=== PATIENT | female | born 1965 | race Caucasian/White ===

== ENCOUNTER 2016-06-02 20:36 | Inpatient (IN) | payer OTHER ==
[~2016-06-02] VITALS: Ht 149.9 cm; Wt 56.7 kg
[~2016-06-02 20:36] MED LIST: DILAUDID2 M1 PO; DURAGESIC1 EAC2 TOP; DURAGESIC1 EACH TOP; FERROUS SULFAT325 M2 PO; FOLIC ACID1 M1 PO; ONE DAILY MULT1 EAC2 PO; OXYCODONE HCL10 M2 PO; PERCOCET 5-3251 EACH PO; PROAIR HFA8.5 GM INH; VITAMIN B-1100 MG PO
--- NOTE | 2016-06-02 21:28 | ED UPPER/LOWER EXTREMITY COMPL ---
History of Present Illness General Chief Complaint: Upper Extremity Problem Stated Complaint: L ARM SWOLLEN X FEW HRS, RECENT CANCER DIAGNOSIS Source: patient Exam Limitations: no limitations Vital Signs & Intake/Output Vital Signs & Intake/Output Vital Signs Date Time Temp Pulse Resp B/P Pulse O2 O2 Flow FiO2 Ox Delivery Rate 06/03 1434 98.5 106 20 122/74 94 06/03 0800 Room Air 06/03 0609 98.3 113 20 120/78 96 06/03 0114 98.2 111 20 152/88 95 06/03 0042 98.7 67 16 126/76 99 Room Air 06/02 2252 98.9 105 16 120/69 95 Room Air 06/02 2114 Room Air 06/02 2057 97.4 113 18 151/92 97 Room Air ED Intake and Output 06/03 0000 06/02 1200 Intake Total Output Total Balance Patient 125 lb Weight Allergies Coded Allergies: NO KNOWN ALLERGIES (06/07/11) Reconcile Medications Albuterol Sulfate (Proair Hfa) 90 MCG HFA.AER.AD 2 PUF INH Q4-6 PRN PRN ASTHMA (Reported) Fentanyl (Duragesic) 25 MCG/HOUR PATCH.TD72 1 PAT TOP Q3D cancer pain Fentanyl Citrate (Duragesic) 50 MCG/HOUR PATCH.TD72 1 PAT TOP Q3D pain Ferrous Sulfate 325 MG (65 MG IRON) TABLET.DR 1 MG PO TID anemia Folic Acid 1 MG TABLET 1 MG PO DAILY anemia Hydromorphone HCl (Dilaudid) 2 MG TABLET 1 TAB PO Q6P PRN PAIN Multivitamin (One Daily Multivitamin) 1 EACH TABLET 1 TAB PO DAILY anemia Oxycodone HCl 10 MG TABLET 1 TAB PO 4XDP PRN breakthrough pain Thiamine HCl (Vitamin B-1) 100 MG TABLET 1 MG PO DAILY anemia Triage Note: TRIAGE: PATIENT TO ER FROM HOME REPORTS "TAKING NEW PAIN MEDICATION AND SINCE HAVING SWELLING TO L HAND AND ARM, NOT SURFE IF IT'S A REACTION OR WHAT." DENIES ITCHING/ RASH. REPORTS RECENT DX CANCER. DENIES SOB/ TONGUE SWELLING. O2 WNL, REGULAR RESPIRATIONS. Triage Nurses Notes Reviewed? yes Onset: Abrupt Duration: day(s): (2) Timing: recent history Severity: moderate Pain/Injury Location: Left: Arm. Method of Injury: none No Modifying Factors: none Associated Symptoms: swelling, stiffness HPI: This is a 50-year-old female who presents to the ER for chief complaint of upper extremity swelling after taking an new medication. She only noticed the swelling yesterday. Denies any pain. SHe thinks it could be the result of starting a fentanyl patch recently. She was admitted to the [facility] 3 weeks ago after being diagnosed with metastatic esophageal cancer. Denies chest pain or shortness of breath. Denies trauma to the extremity. No weaknss, numbness or tingling. Past History Travel History Traveled to [place] past 21 day No Medical History Any Pertinent Medical History? 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 No Review of Systems Review of Systems Constitutional: Denies: see HPI, fever. EENTM: Reports: no symptoms. Respiratory: Denies: cough, short of breath, sputum production. Cardiovascular: Reports: peripheral edema. Denies: chest pain, palpitations. Gastrointestinal/Abdominal: Denies: abdominal pain. Genitourinary: Denies: discharge, dysuria. Musculoskeletal: Reports: no symptoms. Skin: Reports: no symptoms. Neurological/Psychological: Denies: confusion, depressed. Hematologic/Endocrine: Denies: bruising, bleeding, polyuria, polydipsia. Immunological: Denies: splenectomy. All Other Systems: Reviewed and Negative Physical Exam Physical Exam General Appearance: well developed/nourished, alert, awake, mild distress Head: atraumatic Eyes: Bilateral: PERRL, EOMI. Ears, Nose, Throat: normal pharynx, normal ENT inspection, hearing grossly normal Neck: normal inspection, supple Cardiovascular/Respiratory: regular rate/rhythm Peripheral Pulses: 2+ radial (R), 2+ radial (L) Gastrointestinal: SOFT NONTENDER Back: normal inspection Shoulder Left: normal range of motion, normal inspection, swelling Shoulder Right: normal range of motion, normal inspection Elbow Left: normal range of motion, normal inspection, swelling Elbow Right: normal range of motion, normal inspection Hand Left: normal inspection, normal range of motion, swelling Hand Right: normal inspection, normal range of motion Neurologic/Tendon: normal sensation, normal motor functions, normal tendon functions Skin: intact, normal color, warm/dry Lymphatic: no anterior cervical can Progress Differential Diagnosis: cellulitis, DVT, SUPERFICIAL THROMBOPHELEBITIS Plan of Care: Orders Procedure Date/time Status XRY-FLUOROSCOPY,INDEPEND PROC 06/04 UNK Active Nothing by Mouth 06/03 D Active Full Liquid Diet 06/03 B Complete PARTIAL THROMBOPLASTIN TIME 06/03 1910 Active PROTHROMBIN TIME 06/03 1526 Active Heparin Drip- AFIB/FLUTTER/PE/ 06/03 1323 Active Change service to 06/03 1146 Active PARTIAL THROMBOPLASTIN TIME 06/03 1130 Complete PARTIAL THROMBOPLASTIN TIME 06/03 0430 Complete Vital Signs 06/03 0131 Complete Teach/Educate 06/03 0131 Active Nutritional Intake, Monitor 06/03 013 Active Isolation 06/03 0131 Active Intake & Output 06/03 0131 Complete Patient Care Conference 06/03 0131 Active Activity/Ambulation 06/03 0131 Active Vital Signs 06/03 0114 Active Lab Add-on Test 06/03 UN Active ECHOCARDIOGRAM 06/03 UN Active Pathway - chart 06/02 2353 Active House Staff 06/02 2353 Active Patient Data 06/02 2353 Active Code Status 06/02 2353 Active Patient Data 06/02 2350 Active Admit to inpatient 06/02 2308 Active Code Status 06/02 2308 Complete LIPASE 06/02 2200 Complete C-REACTIVE PROTEIN 06/02 2200 Complete AMYLASE 06/02 220 Complete Telemetry/Grout Machine Tender 06/02 215 Complete TROPONIN LEVEL 06/02 215 Complete PARTIAL THROMBOPLASTIN TIME 06/02 215 Complete PROTHROMBIN TIME 06/02 215 Complete COMPREHENSIVE METABOLIC PANEL 06/02 2150 Complete CBC WITHOUT DIFFERENTIAL 06/02 2150 Complete EKG 06/02 2150 Active Intake & Output 06/02 2057 Active VTE Mechanical Prophylaxis 06/02 UNK Active Current Medications Sig/Beata Start time Last Medication Dose Stop Time Status Admin Fentanyl Citrate 50 MCG Q3D 06/06 1200 AC (Duragesic) Acetaminophen 325 MG Q6P PRN 06/03 0215 AC (Tylenol) Laboratory Tests 06/03/16 1517: PT Cancelled, INR Cancelled 06/03/16 1128: APTT 52 H 06/03/16 0420: APTT 47 H 06/02/16 2200: Anion Gap 13, Estimated GFR > 60, BUN/Creatinine Ratio 22.0, Glucose 123 H, Calcium 9.6, Total Bilirubin 1.3, AST 30, ALT 20, Alkaline Phosphatase 135 H, Troponin I < 0.01, C-Reactive Prot, Quant > 9.0 H, Total Protein 7.8, Albumin 3.5, Globulin 4.3 H, Albumin/Globulin Ratio 0.8 L, Amylase 112 H, Lipase 1912 H, PT 15.2 H, INR 1.45 H, APTT 26, CBC w Diff NO MAN DIFF REQ, RBC 4.31, MCV 75.8 L, MCH 24.2 L, RDW 17.5 H, MPV 7.1 L, Gran % 85.1 H, Lymphocytes % 6.9 L, Monocytes % 4.7, Eosinophils % 3.2, Basophils % 0.1, Absolute Granulocytes 11.2 H, Absolute Lymphocytes 0.9 L, Absolute Monocytes 0.6, Absolute Eosinophils 0.4, Absolute Basophils 0, PUBS MCHC 31.9 L U/S ORDERED FROM TRIAGE POSITIVE FOR LEFT IJ/BRACHEOCEPHALIC DVT. LABS, CT CHEST ANGIOGRAM ORDERED. HEPARIN BOLUS AND DRIP ORDERED. PATIENT ADMITTED TO HOSPITALIST SERVICE FOR ANTICOAGULATION. CT CHEST ANGIOGRAM NEGATIVE FOR PE. (ROGERIO SERRANO,[place]) Diagnostic Imaging: Viewed by Me: CT Scan, Ultrasound. Discussed w/RAD: CT Scan, Ultrasound. Initial ED EKG: SINUS TACHYCARDIA @106 BPM Prior EKG: unchanged Comments: PATIENT: ANDRAE BUTCHER PRESENT AGE: 50 PATIENT ACCOUNT NO: [id number] : 66 LOCATION: ER ORDERING PHYSICIAN: LAWRENCE BEATTY MD SERVICE DATE: 06/02/16 EXAM TYPE: CAT - CTA CHEST EXAMINATION: CT ANGIOGRAM CHEST CLINICAL INFORMATION: Left upper extremity DVT. Chest pain and shortness of breath. Poorly differentiated adenocarcinoma of the esophagus. COMPARISON: CT chest with contrast 05/10/2016. TECHNIQUE: Multiple axial images were obtained through the chest after the administration of 95 mL of Optiray 320 intravenous contrast. Images were reviewed on a dedicated 3-D workstation. DLP: 287 mGy-cm. FINDINGS: QUALITY OF STUDY/CONTRAST BOLUS: Adequate contrast opacification of the pulmonary arterial vasculature. PULMONARY ARTERIES: No evidence of pulmonary embolism to the level of the subsegmental pulmonary arteries. No large central pulmonary emboli. Normal caliber of the main pulmonary artery. THORACIC AORTA: Normal caliber of the thoracic aorta. No centrally displaced intraluminal flaps to suggest aortic dissection. Normal three-vessel branching of the aortic arch. LUNG: Interval development of minimal dependent atelectasis within the left lower lobe secondary to interval development of a small left-sided pleural effusion. Diffuse respiratory motion abnormality slightly limits evaluation of the lung parenchyma. No suspicious pulmonary nodules or masses are identified within the aerated portions of the bilateral lungs. PLEURA: As noted above, there has been interval development of a small left-sided pleural effusion with overlying left basilar compressive atelectasis. MEDIASTINUM: Normal heart size, without significant pericardial effusion. Normal three-vessel branching of the aortic arch. Redemonstrated are multiple enhancing soft tissue masses within the superior mediastinum as well as within the mediastinum, corresponding to the patient's known fartun metastases from primary esophageal cancer. Confluent adenopathy within the right paratracheal region as well as within the right lateral aspect of the superior mediastinum does not appear significantly changed relative to the prior examination. Additionally, previously identified adenopathy within the right hilar region as well as within the subcarinal region does not appear significantly changed when accounting for differences in technique. CHEST WALL/AXILLA: In comparison to the prior examination, there has been interval development of prominent left axillary lymph nodes, suspicious for fartun metastases. For instance, there is a prominent left axillary/left subpectoral lymph node measuring 1.3 x 1.6 cm (series 4, image 7). A new right subpectoral lymph node is visualized measuring 0.8 cm (series 4, image 9). There are mildly prominent right axillary lymph nodes, new relative to the prior examination and suspicious for fartun metastases. Previously identified subcutaneous metastases along the left paramedian abdominal wall at the right abdominal wall as well as within the lower inner quadrant of the left breast appear increased in size relative to the prior examination. For instance, a cutaneous metastasis along the right lateral abdominal wall which previously measured 1.0 x 1.1 cm now measures 1.7 x 1.8 cm. Additional cutaneous metastases along the left abdominal wall have increased in size relative to the prior exam. OSSEOUS STRUCTURES: No acute osseous abnormality. Normal alignment of the imaged thoracic spine. Mild multilevel degenerative changes of the thoracic spine without visible acute vertebral compression deformity. No visible destructive osseous lesions. UPPER ABDOMEN: Stable right adrenal gland mass. Interval development of a left adrenal gland mass which is suspicious for a left adrenal gland metastasis. A previously identified peritoneal metastasis within the left upper quadrant of the abdomen has significantly increased in size relative to the prior examination and is now visualized measuring 2.4 x 2.4 cm (series 4, image 50); previously, 1.4 x 1.4 cm. No reflux of contrast into the hepatic veins to suggest elevated right heart pressures. IMPRESSION: 1. Adequate contrast opacification of the pulmonary arterial vasculature, without evidence of pulmonary embolism. 2. Prominent enhancing mediastinal adenopathy as well as confluent adenopathy within the subcarinal region as well as within the right hilar region, corresponding to the patient's known fartun metastases from metastatic esophageal carcinoma. Previously identified cutaneous metastases along the left anterior chest wall as well as along the left paramedian abdominal wall, at the right lateral abdominal wall and within the lower inner quadrant of the left breast increased in size relative to the prior examination. Additionally, there has been significant interval increase in size of a previously identified peritoneal metastasis within the left upper quadrant of the abdomen which is now visualized measuring 2.4 x 2.4 cm; previously, 1.4 x 1.4 cm. This constellation of findings is suggestive of interval progression of metastatic disease within the chest and abdomen. 3. Interval development of the left adrenal gland mass, suspicious for left adrenal gland metastasis. 4. Interval development of prominent bilateral axillary and subpectoral lymph nodes, suspicious for fartun metastases. 5. Interval development of a small left-sided pleural effusion with overlying left basilar compressive atelectasis. DICTATED BY: RICAROD NGUYỄN MD DATE/TIME DICTATED:06/02/162234 TRUST EVALUATION SUPERVISOR:ALYSHA DATE/TIME TRANSCRIBED:06/02/162234 CONFIDENTIAL, DO NOT COPY WITHOUT APPROPRIATE AUTHORIZATION. <Electronically signed in Other Vendor System> SIGNED BY: RICARDO NGUYỄN MD 06/02/16 1860 PATIENT: ANDRAE BUTCHER PRESENT AGE: 50 PATIENT ACCOUNT NO: [id number] : 67 LOCATION: [facility] ORDERING PHYSICIAN: CALEB THOMAS SERVICE DATE: 06/02/16 EXAM TYPE: US - US-UNILATERAL VENOUS DOPPLER EXAMINATION: US TRIPLEX UPPER EXTREMITY, LEFT CLINICAL INFORMATION: Left upper extremity swelling. Evaluate for deep venous thrombosis. COMPARISON: CT neck with contrast 05/10/2016. TECHNIQUE: Color-flow triplex imaging with spectral analysis and compression Doppler were performed on the left upper extremity. FINDINGS: Multiple grayscale, color Doppler and spectral Doppler images of the left upper extremity veins demonstrate nonocclusive thrombus within the upper left internal jugular vein, extending to the proximal segment of the internal jugular vein at the level of the brachiocephalic confluence. The remaining veins of the left upper extremity are patent. There is no evidence of deep venous thrombosis within the left subclavian, axillary, brachial, basilic, cephalic, radial or ulnar veins. IMPRESSION: Deep venous thrombosis of the left upper extremity with nonocclusive thrombus identified within the upper regions of the left internal jugular vein, with contiguous extension into the proximal segment of the left internal jugular vein, at the level of the brachiocephalic confluence. This critical result was discussed with Dr. Caleb Edwards at 9:52 PM on 05/25/2016 and it was ascertained that the content and urgency of the report was understood at the time of direct communication. DICTATED BY: RICARDO NGUYỄN MD DATE/TIME DICTATED:06/02/162143 TRUST EVALUATION SUPERVISOR:ALYSHA DATE/TIME TRANSCRIBED:06/02/162143 CONFIDENTIAL, DO NOT COPY WITHOUT APPROPRIATE AUTHORIZATION. <Electronically signed in Other Vendor System> SIGNED BY: RICARDO NGUYỄN MD 06/02/162156 Departure Departure Time of Disposition: 2314 Disposition: STILL A PATIENT Condition: Stable Clinical Impression Primary Impression: Internal jugular (IJ) vein thromboembolism, acute Secondary Impressions: Metastatic cancer Referrals: KRISTIAN LAKE MD (PCP/Family) Referred to [facility] as new patient No Departure Forms: Customer Survey General Discharge Information Admission Note Spoke With: AUDI DENTON MD Documentation of Exam: Documentation of any treatments & extenuating circumstances including Concerns Regarding Discharge (functional status, medication knowledge or non-compliance, living conditions, etc.) that warrant an admission rather than observation: [IV HEPARIN, MONITOR COAGS, VASCULAR CONSULT, ONCOLOGY CONSULTATION (PATIENT BEING WORKED UP BY DR OTTO WITH CURRENT EVIDENCE OF METASTATIC CANCER)]
--- NOTE | 2016-06-02 21:57 | ULTRASOUND REPORT ---
EXAMINATION: US TRIPLEX UPPER EXTREMITY, LEFT CLINICAL INFORMATION: Left upper extremity swelling. Evaluate for deep venous thrombosis. COMPARISON: CT neck with contrast 05/10/2016. TECHNIQUE: Color-flow triplex imaging with spectral analysis and compression Doppler were performed on the left upper extremity. FINDINGS: Multiple grayscale, color Doppler and spectral Doppler images of the left upper extremity veins demonstrate nonocclusive thrombus within the upper left internal jugular vein, extending to the proximal segment of the internal jugular vein at the level of the brachiocephalic confluence. The remaining veins of the left upper extremity are patent. There is no evidence of deep venous thrombosis within the left subclavian, axillary, brachial, basilic, cephalic, radial or ulnar veins. IMPRESSION: Deep venous thrombosis of the left upper extremity with nonocclusive thrombus identified within the upper regions of the left internal jugular vein, with contiguous extension into the proximal segment of the left internal jugular vein, at the level of the brachiocephalic confluence. This critical result was discussed with Dr. Khanh Edwards at 9:52 PM on 05/25/2016 and it was ascertained that the content and urgency of the report was understood at the time of direct communication.
[2016-06-02 22:08] LABS: ABSOLUTE BASOPHIL COUNT 0 /CUMM (0.0-0.2); ABSOLUTE EOSINOPHIL COUNT 0.4 /CUMM (0.0-0.7); ABSOLUTE GRANULOCYTE CT 11.2 /CUMM (1.4-6.5); ABSOLUTE LYMPH COUNT 0.9 /CUMM (1.2-3.4); ABSOLUTE MONOCYTE COUNT 0.6 /CUMM (0.10-0.60); BASOPHIL % 0.1 % (0.0-2.0); EOSINOPHIL % 3.2 % (0-5); HEMATOCRIT 32.7 % (37-47); MEAN CORPUSCULAR HGB 24.2 PG (27.0-31.0); MEAN CORPUSCULAR HGB CONC 31.9 G/DL (33.0-37.0); MEAN CORPUSCULAR VOLUME 75.8 FL (81.0-99.0); MEAN PLATELET VOLUME 7.1 FL (7.4-10.4); PLATELET COUNT 402 /CUMM (130-400); RBC DISTRIBUTION WIDTH 17.5 % (11.5-14.5); RED BLOOD CELL CT 4.31 /CUMM (4.20-5.40); WHITE BLOOD CELL COUNT 13.2 /CUMM (4.8-10.8)
[2016-06-02 22:18] LABS: PT 15.2 SEC (9.4-12.5); PTT 26 SEC (25-37)
[2016-06-02 22:27] LABS: GRANULOCYTE % 85.1 % (42.2-75.2)
--- NOTE | 2016-06-02 23:01 | CT SCAN REPORT ---
EXAMINATION: CT ANGIOGRAM CHEST CLINICAL INFORMATION: Left upper extremity DVT. Chest pain and shortness of breath. Poorly differentiated adenocarcinoma of the esophagus. COMPARISON: CT chest with contrast 05/10/2016. TECHNIQUE: Multiple axial images were obtained through the chest after the administration of 95 mL of Optiray 320 intravenous contrast. Images were reviewed on a dedicated 3-D workstation. DLP: 287 mGy-cm. FINDINGS: QUALITY OF STUDY/CONTRAST BOLUS: Adequate contrast opacification of the pulmonary arterial vasculature. PULMONARY ARTERIES: No evidence of pulmonary embolism to the level of the subsegmental pulmonary arteries. No large central pulmonary emboli. Normal caliber of the main pulmonary artery. THORACIC AORTA: Normal caliber of the thoracic aorta. No centrally displaced intraluminal flaps to suggest aortic dissection. Normal three-vessel branching of the aortic arch. LUNG: Interval development of minimal dependent atelectasis within the left lower lobe secondary to interval development of a small left-sided pleural effusion. Diffuse respiratory motion abnormality slightly limits evaluation of the lung parenchyma. No suspicious pulmonary nodules or masses are identified within the aerated portions of the bilateral lungs. PLEURA: As noted above, there has been interval development of a small left-sided pleural effusion with overlying left basilar compressive atelectasis. MEDIASTINUM: Normal heart size, without significant pericardial effusion. Normal three-vessel branching of the aortic arch. Redemonstrated are multiple enhancing soft tissue masses within the superior mediastinum as well as within the mediastinum, corresponding to the patient's known fartun metastases from primary esophageal cancer. Confluent adenopathy within the right paratracheal region as well as within the right lateral aspect of the superior mediastinum does not appear significantly changed relative to the prior examination. Additionally, previously identified adenopathy within the right hilar region as well as within the subcarinal region does not appear significantly changed when accounting for differences in technique. CHEST WALL/AXILLA: In comparison to the prior examination, there has been interval development of prominent left axillary lymph nodes, suspicious for fartun metastases. For instance, there is a prominent left axillary/left subpectoral lymph node measuring 1.3 x 1.6 cm (series 4, image 7). A new right subpectoral lymph node is visualized measuring 0.8 cm (series 4, image 9). There are mildly prominent right axillary lymph nodes, new relative to the prior examination and suspicious for fartun metastases. Previously identified subcutaneous metastases along the left paramedian abdominal wall at the right abdominal wall as well as within the lower inner quadrant of the left breast appear increased in size relative to the prior examination. For instance, a cutaneous metastasis along the right lateral abdominal wall which previously measured 1.0 x 1.1 cm now measures 1.7 x 1.8 cm. Additional cutaneous metastases along the left abdominal wall have increased in size relative to the prior exam. OSSEOUS STRUCTURES: No acute osseous abnormality. Normal alignment of the imaged thoracic spine. Mild multilevel degenerative changes of the thoracic spine without visible acute vertebral compression deformity. No visible destructive osseous lesions. UPPER ABDOMEN: Stable right adrenal gland mass. Interval development of a left adrenal gland mass which is suspicious for a left adrenal gland metastasis. A previously identified peritoneal metastasis within the left upper quadrant of the abdomen has significantly increased in size relative to the prior examination and is now visualized measuring 2.4 x 2.4 cm (series 4, image 50); previously, 1.4 x 1.4 cm. No reflux of contrast into the hepatic veins to suggest elevated right heart pressures. IMPRESSION: 1. Adequate contrast opacification of the pulmonary arterial vasculature, without evidence of pulmonary embolism. 2. Prominent enhancing mediastinal adenopathy as well as confluent adenopathy within the subcarinal region as well as within the right hilar region, corresponding to the patient's known fartun metastases from metastatic esophageal carcinoma. Previously identified cutaneous metastases along the left anterior chest wall as well as along the left paramedian abdominal wall, at the right lateral abdominal wall and within the lower inner quadrant of the left breast increased in size relative to the prior examination. Additionally, there has been significant interval increase in size of a previously identified peritoneal metastasis within the left upper quadrant of the abdomen which is now visualized measuring 2.4 x 2.4 cm; previously, 1.4 x 1.4 cm. This constellation of findings is suggestive of interval progression of metastatic disease within the chest and abdomen. 3. Interval development of the left adrenal gland mass, suspicious for left adrenal gland metastasis. 4. Interval development of prominent bilateral axillary and subpectoral lymph nodes, suspicious for fartun metastases. 5. Interval development of a small left-sided pleural effusion with overlying left basilar compressive atelectasis.
--- NOTE | 2016-06-03 00:15 | History & Physical ---
YING SERRANO,[facility] 06/03/16 0015: General Information and HPI MD Statement: I have seen and personally examined ANDRAE BUTCHER and documented this H&P. The patient is a 50 year old F who presented with a patient stated chief complaint of []. Source of Information: patient, old records Exam Limitations: no limitations History of Present Illness: 50/F with PMH of asthma, DM, esophageal cancer diagnosed earlier this month, presented to the ED complaining of left arm swelling that started for the first time ever earlier today. Today morning patient started complaining of left arm swelling that extends up to the neck. She also reported 6/10, nonradiating, crampy, left arm pain. Patient was recently discharged after was treated for pancreatitis. She still reports mild abdominal pain and decreased oral intake. Patient denies nausea, vomiting, fever, chills, diarrhea or constipation. She also denies chest pain, shortness breath, or palpitation. Patient was admitted to [facility] earlier this month for the treatment of pancreatitis, as a part of the workup, abdominal CT was done which demonstrate multiple mass that's most likely represents a metastasized cancer. That was followed by CT of neck and chest which showed mediastinal mass with esophageal thickening. A biopsy was done and confirmed the diagnosis of esophageal cancer. Patient is following Dr. Garcia (oncologist), patient is not on any chemotherapy or radiotherapy. Allergies/Medications Allergies: Coded Allergies: NO KNOWN ALLERGIES (06/07/11) Home Med list Albuterol Sulfate (Proair Hfa) 90 MCG HFA.AER.AD 2 PUF INH Q4-6 PRN PRN ASTHMA (Reported) Fentanyl (Duragesic) 25 MCG/HOUR PATCH.TD72 1 PAT TOP Q3D cancer pain Fentanyl Citrate (Duragesic) 50 MCG/HOUR PATCH.TD72 1 PAT TOP Q3D pain Ferrous Sulfate 325 MG (65 MG IRON) TABLET.DR 1 MG PO TID anemia Folic Acid 1 MG TABLET 1 MG PO DAILY anemia Hydromorphone HCl (Dilaudid) 2 MG TABLET 1 TAB PO Q6P PRN PAIN Multivitamin (One Daily Multivitamin) 1 EACH TABLET 1 TAB PO DAILY anemia Oxycodone HCl 10 MG TABLET 1 TAB PO 4XDP PRN breakthrough pain Thiamine HCl (Vitamin B-1) 100 MG TABLET 1 MG PO DAILY anemia Past History Travel History Traveled to [place] past 21 day No Medical History Neurological: NONE EENT: NONE Cardiovascular: NONE Respiratory: asthma Gastrointestinal: pancreatitis Hepatic: NONE Renal: BLADDER INFECTIONS Musculoskeletal: NONE Psychiatric: NONE Endocrine: NONE Blood Disorders: NONE Cancer(s): POORLY DIFFERENTIATED ADENOCARCINOMA OF THE DISTAL ESOPHAGUS 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 Denies: chills, fever, weakness. Exam & Diagnostic Data Last 24 Hrs of Vital Signs/I&O Vital Signs Date Time Temp Pulse Resp B/P Pulse O2 O2 Flow FiO2 Ox Delivery Rate 06/03 0114 98.2 111 20 152/88 95 06/03 0042 98.7 67 16 126/76 99 Room Air 06/02 2252 98.9 105 16 120/69 95 Room Air 06/02 2114 Room Air 06/027 97.4 113 18 151/92 97 Room Air Intake & Output 06/03 0800 06/03 0000 06/02 1600 Intake Total Output Total Balance Patient 56.699 kg 56.699 kg Weight Physical Exam General Appearance Alert, Oriented X3, Cooperative, Mild Distress Skin No Rashes HEENT Atraumatic, PERRLA, EOMI, Mucous Membr. moist/pink Neck No JVD, posterio-lateral mass on the base of the neck. Cardiovascular Regular Rate, Normal S1, Normal S2, No Murmurs Lungs Clear to Auscultation, Normal Air Movement Abdomen Soft, No Tenderness Neurological Normal Speech Extremities no edema, swelling or tenderness over LE B/L, +1 Left UE edema, with no tenderness. right UE exam Vascular Normal Pulses Last 24 Hrs of Labs/Al: Laboratory Tests 06/02/ 2200: Anion Gap 13, Estimated GFR > 60, BUN/Creatinine Ratio 22.0, Glucose 123 H, Calcium 9.6, Total Bilirubin 1.3, AST 30, ALT 20, Alkaline Phosphatase 135 H, Troponin I < 0.01, C-Reactive Prot, Quant > 9.0 H, Total Protein 7.8, Albumin 3.5, Globulin 4.3 H, Albumin/Globulin Ratio 0.8 L, Amylase 112 H, Lipase 1912 H, PT 15.2 H, INR 1.45 H, APTT 26, CBC w Diff NO MAN DIFF REQ, RBC 4.31, MCV 75.8 L, MCH 24.2 L, RDW 17.5 H, MPV 7.1 L, Gran % 85.1 H, Lymphocytes % 6.9 L, Monocytes % 4.7, Eosinophils % 3.2, Basophils % 0.1, Absolute Granulocytes 11.2 H, Absolute Lymphocytes 0.9 L, Absolute Monocytes 0.6, Absolute Eosinophils 0.4, Absolute Basophils 0, PUBS MCHC 31.9 L Assessment/Plan Assessment: Assessment and plan #Left upper extremity DVT. Patient has a hypercoagulable state most likely secondary to esophageal cancer with advance patient metastasis. Diagnosis was confirmed with upper extremity Doppler. * Patient already started on heparin drip * We will give IV Dilaudid 1 mg every 4 when necessary * We will consult oncology at a.m. #Acute pancreatitis Patient was recently discharged after she was treated for pancreatitis, she still complaining of epigastric pain that radiates to the back. Lipase was higher than last discharge(1911). * Patient will be started on IV fluids * Patient will be on full liquid and will be advanced as tolerated * Patient is on IV Dilaudid 1 mg every 4 when necessary * Zofran when necessary for nausea #Microcystic anemia Iron study was done during the last admission, it indicates iron deficiency anemia. Today MCV is 75.8 * We will repeat CBC before discharge * Patient may benefit from starting on, this can be addressed by the morning team #Diet * Full liquid #Fluid * Ringer lactate #DVT prophylaxis * She is on IV heparin drip #CODE STATUS * Full code As Ranked By This Provider Problem List: 1. Esophageal cancer Core Measures/Miscellaneous Acute Coronary Syndrome ACS Diagnosis: No Cerebrovascular Accident CVA/TIA Diagnosis: No Congestive Heart Failure CHF Diagnosis: No Venous Thromboembolism VTE Risk Factors: Acute medical illness, Age > 40, Cancer/chemo/oth therapy VTE Prophylaxis Ordered Inpt: Mech & Pharm No Mech VTE prophylaxis d/t: No contraindications No VTE Pharm Prophylaxis d/t: No contraindications VTE Diagnosis: Yes VTE Type: Deep Venous Thrombosis VTE Confirmed by (Test): DUPLEX VENOUS EXTREM UNI Severe Sepsis Severe Sepsis Present: No Septic Shock Septic Shock Present: No Miscellaneous Documentation Attending Case Discussed With: AUDI DENTON MD Primary Care Physician: KRISTIAN LAKE MD Patient sees these Specialists KRISTIAN LAKE MD Level of Patient Care: General Surgical KEILA HERNÁNDEZ 06/03/16 0124: Resident Review Statement Resident Statement: examined this patient, discussed with cisco certified internetwork expert Other Findings: Patient is a 50-year-old female with past medical history of diabetes, asthma, recent diagnosis of esophageal cancer( May 2016) with extensive metastasis presented to the ED today with a chief complaint of swelling of the left upper extremity since the morning. Patient was recently discharged from [facility] on 05/13/2016 after being treated for pancreatitis.CT scan of the abdomen and pelvis which demonstrated numerous abnormalities including subcutaneous nodules, abdominal lymphoadenopathy, and pancreatitis. CT neck and chest showed mediastinal and right hilar adenopathy and diffuse thickening of the esophagus. She underwent biopsy of the right neck supple on 05/11 and underwent EGD on 05/12. EGD showed an exophytic tumor, biopsies revealed HER-2 positive adenocarcinoma of the esophagus. She has extensive metastasis to the abdominal wall, left breast, lymph nodes, bones, and adrenal gland. She is following up with Dr. Garcia as an outpatient and has not been started on chemotherapy. This morning she noted an increasing swelling of her left upper extremity extending from hand to the neck. She complains of moderate pain 6 /10 on intensity in her arm. She also complains of poor by mouth intake over the past few days due to pain in her abdomen on taking any food or drink.Pain is radiating to the back. She has not been drinking for the past 20 days. Denies any chest pain, shortness of breath, nausea, vomiting, urinary or bowel symptoms. Complains of intermittent headaches. Patient has been very depressed since the diagnosis of cancer. She lost her job due to absence from work secondary to her health issues. Vitals temperature 97.4, pulse 113, respiration 18, blood pressure 151/92, saturating 97% on room air Labs showed a white count of 13.2, H&H of 10.4/32.7, MCV 75.8, platelet count 402, sodium 132, potassium 3.6, glucose 123, troponin negative, alkaline phosphatase 135, lipase 1912, INR 1.45. Dopplers: DVT in the upper left extremity with nonocclusive thrombus in the upper region of the internal jugular vein with contiguous extension to the proximal segment of the left internal jugular vein at the level of brachiocephalic confluence. CTA: rominent enhancing mediastinal adenopathy as well as confluent adenopathy within the subcarinal region as well as within the right hilar region, corresponding to the patient's known fartun metastases from metastatic esophageal carcinoma. Previously identified cutaneous metastases along the left anterior chest wall as well as along the left paramedian abdominal wall, at the right lateral abdominal wall and within the lower inner quadrant of the left breast increased in size relative to the prior examination. Additionally, there has been significant interval increase in size of a previously identified peritoneal metastasis within the left upper quadrant of the abdomen which is now visualized measuring 2.4 x 2.4 cm; previously, 1.4 x 1.4 cm. This constellation of findings is suggestive of interval progression of metastatic disease within the chest and abdomen. Interval development of the left adrenal gland mass, suspicious for left adrenal gland metastasis.Interval development of a small left-sided pleural effusion with overlying left basilar compressive atelectasis. Physical exam: Gen.: Awake, alert and oriented 3, mild distress, anxious HEENT: PERRLA, EOMI. Soft subcutaneous mass seen on the right side of the neck about 2X2 cm. A small knotty mass is felt on the left side of the neck. Respiratory: normal breath sounds, chest non-tender, no respiratory distress, quiet respiration Cardiovascular: Regular rate and rhythem. Gastrointestinal: normal bowel sounds, soft, mild tenderness in the epigastric area. Back: normal range of motion, tenderness to palpation in the lumbar region. Extremities: 1+ edema in the left upper extremity extending from the hand to the neck Neurologic/Psych: awake, alert, oriented x 3 Skin: intact, normal color, warm/dry Plan: 1. Left upper extremity DVT in the setting of recently diagnosed metastatic esophageal cancer. -Admit to [facility] -Vitals every shift -Patient has been started on heparin drip in the ED. We'll continue for now and eventually switched to oral anticoagulation. -Heme/onc consult with Dr. Garcia in a.m. -Pain control with IV Dilaudid 1 mg every 4 when necessary 2.Recurrent pancreatitis -Patient was recently treated for pancreatitis early May. Continues to have mild abdominal discomfort and back pain. Lipase 1911 -We'll start patient on RL at 200 ML per hour -We'll start patient on full liquid diet as she wants to eat -Pain control with IV Dilaudid and Tylenol -IV Zofran for nausea. 3 History of alcohol abuse -Has been off alcohol for the past 21 days -Is not in withdrawal at this time. 4. Microcytic anemia: Indicis were consistent with iron deficiency. -No signs of overt GI bleed -We will maintain hemoglobin above 7 Full code Mild/ Severe Pathway Full liquid diet AUDI DENTON 06/03/16 0533: Attending MD Review Statement Attending Statement Attending MD Statement: examined this patient, discuss w/resident/PA/EQUAL OPPORTUNITY OFFICER, agreed w/resident/PA/EQUAL OPPORTUNITY OFFICER, reviewed EMR data (avail), reviewed images, amended to note Attending Assessment/Plan: CC: Swelling of left upper extremity PMHx: Recently diagnosed adenocarcinoma of esophagus, Hx alcohol use quit since last admission. Patient came to ER for left arm swelling started today. With pain 6/10, nonradiating. No chest pain, palpitations. No trauma. She is recently diagnosed adenocarcinoma of esophagus earlier this month, currently undergoing outpatient investigations and probable chemotherapy plan. She started to notice abdominal pain today, similar to her previous pancreatitis episode. No nausea, vomiting, fever, chills, diarrhea. Vitals : Afebrile, tachycardia, BP stable, saturating well on room air. On examination: A O 3, anxious, flat affect, left upper extremity swollen compared to right upper extremity throughout. Pulses intact, no erythema, no redness. Palpable lymphadenopathy cervical area. RS: Clear air entry bilaterally. CVS: S1-S2, rate rhythm regular. Abdomen: Soft, NT, ND, BS present. No edema on bilateral lower extremity. Labs: WBC 13.2, hemoglobin 10.4, platelets 402, lipase 1912 Left upper extremity venous Doppler: DVT of left upper extremity with nonocclusive thrombus identified within a perforation of left internal jugular vein with Contigen S extension into proximal segment of left internal jugular vein. CTA chest: No evidence of PE A and P #1 left upper extremity DVT : With underlying is a cancer of esophagus with suspected metastases, continue heparin drip, inform [facility]/ Onco that patient is here. #2 acute abdominal pain with elevated lipase and suspected recurrence of pancreatitis, continue full liquids as tolerated continue pain control, continue gentle hydration. When necessary Zofran #3 adenocarcinoma esophagus : Inform heme/ onco #4 adequate pain control with pain pathway.
[2016-06-03 01:14] VITALS: BP 152/88
[2016-06-03 04:53] LABS: PTT 47 SEC (25-37)
--- NOTE | 2016-06-03 05:34 | Admission Certification ---
Admission Certification Certification Statement - As attending physician, I certify that at the time of - admission, based on clinical presentation, severity of - symptoms, need for further diagnostic testing and - therapeutic interventions, and risk of adverse outcomes - without in-hospital treatment, in my clinical assessment, - this patient requires an acute hospital stay for a minimum - of two nights or longer. I have also considered psychsocial - factors such as support system, advanced age, financial - issues, cognitive issues, and failed out-patient treatments, - past re-admission history, safety of patient, and lack of - compliance as applicable. Specific rationale supporting this admission is: Left upper extremity DVT in setting of cancer
[2016-06-03 06:09] VITALS: BP 120/78
--- NOTE | 2016-06-03 08:30 | PN- Housestaff ---
CLARITA SERRANO,[facility] 06/03/16 0829: Subjective Follow-up For: Epigastric pain Pain in left arm/DVT Subjective: patient seen and examined this Am. She was lying in bed in no acute distress. She reported pain in her left arm, epigastric area. She reports feeling nauseous but no vomiting. Afebrile. vitals within normal limits. She appeared very drawned ans sad secondary to her clinical and social conditions. Review of Systems Constitutional: Reports: see HPI. Objective Last 24 Hrs of Vital Signs/I&O Vital Signs Date Time Temp Pulse Resp B/P Pulse O2 O2 Flow FiO2 Ox Delivery Rate 06/03 0800 Room Air 06/03 0609 98.3 113 20 120/78 96 06/03 0114 98.2 111 20 152/88 95 06/03 0042 98.7 67 16 126/76 99 Room Air 06/02 2252 98.9 105 16 120/69 95 Room Air 06/02 2114 Room Air 06/027 97.4 113 18 151/92 97 Room Air Intake & Output 06/03 1600 06/03 0800 06/03 0000 Intake Total 940 Output Total Balance 940 Intake, IV 700 Intake, Oral 240 Patient 56.699 kg 56.699 kg Weight Physical Exam General Appearance: Alert, Oriented X3, Cooperative, No Acute Distress Cardiovascular: Regular Rate, Normal S1, Normal S2, No Murmurs Lungs: Clear to Auscultation, Normal Air Movement Abdomen: Normal Bowel Sounds, Soft, tender in epigastric area Extremities: No Clubbing, No Cyanosis, No Edema Assessment/Plan Assessment: Patient is a 50-year-old female with past medical history of diabetes, asthma, recent diagnosis of esophageal cancer( May 2016) with extensive metastasis presented to the ED today with a chief complaint of swelling of the left upper extremity. s/p HER-2 positive adenocarcinoma of the esophagus with extensive metastasis to the abdominal wall, left breast, lymph nodes, bones, and adrenal gland. She is following up with Dr. Garcia as an outpatient and has not been started on chemotherapy. Vitals temperature 97.4, pulse 113, respiration 18, blood pressure 151/92, saturating 97% on room air Labs showed a white count of 13.2, H&H of 10.4/32.7, MCV 75.8, platelet count 402, sodium 132, potassium 3.6, glucose 123, troponin negative, alkaline phosphatase 135, lipase 1912, INR 1.45. Dopplers: DVT in the upper left extremity with nonocclusive thrombus in the upper region of the internal jugular vein with contiguous extension to the proximal segment of the left internal jugular vein at the level of brachiocephalic confluence. patient currently managed for following conditions: 1. Left upper extremity DVT in the setting of recently diagnosed metastatic esophageal cancer. -Vitals every shift -Patient on heparin drip will switch to oral anticoagulation. -Heme/onc consult, appreciated will f/u recs, getting a baseline ECHO in anticipation of near future chemotherapy, have spoken to IR for placement of port for chemotherapy, we'll hold off of IV heparin prior procedure, patient will be nothing by mouth overnight. -Pain control with roxicodone, dilaudid, fentanyl patch. Recurrent pancreatitis: -Patient was recently treated for pancreatitis early May. Continues to have mild abdominal discomfort and back pain. Lipase 191 -Keeping on RL at 200 ML per hour -She has been able to tolerate full liquid diet well, will advance as tolerated. -Pain control with IV Dilaudid and Tylenol -IV Zofran for nausea. Microcytic anemia: Indicis were consistent with iron deficiency. -No signs of overt GI bleed -We will maintain hemoglobin above 7 Full code Mild/ Severe Pathway Full liquid diet Problem List: 1. Internal jugular (IJ) vein thromboembolism, acute 2. Upper abdominal pain, unspecified 3. Pancreatitis 4. Primary cancer of esophagus with metastasis to other site Pain Ratin Pain Location: abdomen/epigastrium, left arm Pain Goal: Remain pain free Pain Plan: roxicodone, dilaudid, fentanyl patch. Tomorrow's Labs & Rationales: CBC for h&h monitoring BEP for lytes monitoring DVT/Prophylaxis: pharmacological EDWARD SERRANO,[facility] 06/03/16 1239: Attending MD Review Statement Attending Statement Attending MD Statement: examined this patient, discuss w/resident/PA/DIGITAL SALES PLANNER, agreed w/resident/PA/DIGITAL SALES PLANNER, reviewed EMR data (avail), discussed with nursing, discussed with case mgmt, amended to note Attending Assessment/Plan: Patient seen and examined. Resting comfortably not in acute distress. No events overnight. She denies any pain in her left upper extremity. Reports continued swelling. Reports that her abdominal pain has been persistent but is controlled on her home regimen. She reports that occasionally the pain is unbearable however on occasion she does not require any pain medications. She is able to tolerate oral intake with no complaints of vomiting. Examination the left upper extremity is mildly edematous. Distal pulses are weakly palpable. There is no evidence of ischemia in the left hand. Abdomen is soft and nontender with no rebound or guarding. She has no peripheral edema or swelling. She has no facial swelling or evidence of engorgement. Her lipase level is elevated however levels are improved compared to when she was admitted for acute pancreatitis. She has had her lipase levels checked in the outpatient setting and normalized elevated and lower than when she initially presented. The elevated levels as likely secondary to underlying necrotic malignancy. Problems: 1. Left upper extremity deep vein thrombosis in the setting of malignancy. 2. Pancreatic cancer; probably secondary to metastatic disease. Plan: -Provide anticoagulation therapy with Lovenox 1 mg per KG subcutaneous twice a day. -Anticipate discharge patient on this regimen. Nursing staff to begin Lovenox teaching. -If patient is unable to tolerate this medication long-term, she will be discharged on Coumadin with Lovenox bridging unless otherwise recommended by the oncology service. -Oncology service currently recommending baseline echocardiogram as well as placement of a port for IV access. We will attempt to obtain these procedures while she is in the hospital. Upon completion of these procedures she may be discharged home on anticoagulation therapy. -Please resume her pain management regimen. She reports that she was provided with a higher dose of fentanyl at home due to persistent complaints of abdominal pain. She is yet to start this regimen. Please begin patient on increased dose of fentanyl while she is here in the hospital. -Her mild tachycardia is likely secondary to her underlying malignancy and pain. She is asymptomatic and thus we will hold off therapy with negative chronotropic agents for now.
--- NOTE | 2016-06-03 09:09 | Cons- Oncology ---
General Information and HPI Consulting Request Date of Consult: 06/03/16 Requested By: AUDI DENTON MD Reason for Consult: DVT in esophageal cancer Source of Information: patient, old records Exam Limitations: no limitations History of Present Illness: Ms. Hernández is a 50-year-old female with history of asthma, alcohol usage, and recently diagnosed with metastatic esophageal cancer who presents to hospital with left hand swelling and neck pain. She states symptoms started yesterday morning. She woke up and noted pain in her left arm and neck. She denies any chest pain or shortness of breath. She has abdominal pain. She states the pain was better yesterday. She feels constipated and last bowel movement was 2-3 days ago. She has not had any fever or chills. In the ER, she was evaluated with doppler ultrasound and was positive for DVT. There was a nonocclusive thrombus within the upper regions of the left internal jugular vein with contiguous extension into the proximal segment of the left IJ vein, at the level of the brachiocephalic confluence. CTA of the chest demonstrated no PE but progression of metastatic esophageal cancer. Allergies/Medications Allergies: Coded Allergies: NO KNOWN ALLERGIES (06/07/11) Home Med List: Albuterol Sulfate (Proair Hfa) 90 MCG HFA.AER.AD 2 PUF INH Q4-6 PRN PRN ASTHMA (Reported) Fentanyl (Duragesic) 25 MCG/HOUR PATCH.TD72 1 PAT TOP Q3D cancer pain Fentanyl Citrate (Duragesic) 50 MCG/HOUR PATCH.TD72 1 PAT TOP Q3D pain Ferrous Sulfate 325 MG (65 MG IRON) TABLET.DR 1 MG PO TID anemia Folic Acid 1 MG TABLET 1 MG PO DAILY anemia Hydromorphone HCl (Dilaudid) 2 MG TABLET 1 TAB PO Q6P PRN PAIN Multivitamin (One Daily Multivitamin) 1 EACH TABLET 1 TAB PO DAILY anemia Oxycodone HCl 10 MG TABLET 1 TAB PO 4XDP PRN breakthrough pain Thiamine HCl (Vitamin B-1) 100 MG TABLET 1 MG PO DAILY anemia Current Medications: Current Medications Sig/Beata Start time Last Medication Dose Route Stop Time Status Admin Acetaminophen 325 MG Q6P PRN 06/03 0215 AC PO Heparin Sodium 2,300 UNIT ONCE ONE 06/03 0545 DC 06/03 (Porcine) IV 06/03 0546 0543 Heparin Sodium 0 .STK-MED ONE 06/02 2210 DC (Porcine) .ROUTE Heparin Sodium 5,000 UNIT ONCE ONE 06/02 2200 DC 06/02 (Porcine) IV 06/02 Heparin Sodium 25,000 UNIT Q24H 06/02 2200 AC 06/03 (Porcine) IV 0545 Sodium Chloride 500 ML Hydromorphone HCl 1 MG Q4P PRN 06/03 0245 AC 06/03 IV 0451 Hydromorphone HCl 0.4 MG Q4P PRN 06/02 2345 DC 06/03 IV 0105 Lactated Ringer's 1,000 ML ONCE ONE 06/03 0215 DC 06/03 IV 06/03 0714 0249 Ondansetron HCl 1 MG Q6P PRN 06/03 0230 AC IV Ondansetron HCl 4 MG Q6P PRN 06/03 0100 DC IV Review of Systems Review of Systems Constitutional: Denies: chills, fever, weakness. Cardiovascular: Denies: chest pain, orthopena. Respiratory: Denies: short of breath. GI: Reports: abdominal pain, constipation. Denies: nausea. Genitourinary: Denies: discharge, dysuria. Musculoskeletal: Reports: back pain, joint pain. Neurological/Psychological: Reports: anxiety. Hematologic/Endocrine: Denies: bruising. 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 Surgical History Surgical History: none, non-contributory Psychosocial History Services at Home: None Smoking Status: Current Some Day Smoker Exam & Diagnostic Data Vital Signs and I&O Vital Signs Date Time Temp Pulse Resp B/P Pulse O2 O2 Flow FiO2 Ox Delivery Rate 06/03 0609 98.3 113 20 120/78 96 06/03 0114 98.2 111 20 152/88 95 06/03 0042 98.7 67 16 126/76 99 Room Air 06/02 2252 98.9 105 16 120/69 95 Room Air 06/02 2114 Room Air 06/02 2057 97.4 113 18 151/92 97 Room Air Intake & Output 06/03 1600 06/03 0800 06/03 0000 Intake Total 940 Output Total Balance 940 Intake, IV 700 Intake, Oral 240 Patient 56.699 kg 56.699 kg Weight Physical Exam General Appearance: alert, awake, comfortable Head: atraumatic, normal appearance Eyes: Bilateral: PERRL. Ears, Nose, Throat: normal pharynx Neck: normal inspection, fullness on left supraclavicular region Respiratory: normal breath sounds, chest non-tender, no respiratory distress Cardiovascular: tachycardia Gastrointestinal: normal bowel sounds, soft, tenderness (mild, diffuse) Extremities: normal inspection, no edema Neurologic/Psych: awake, alert, oriented x 3 Last 48 Hours of Lab Results: Laboratory Tests 06/03 06/02 0420 2200 Chemistry Sodium (137 - 145 mmol/L) 132 L Potassium (3.5 - 5.1 mmol/L) 3.6 Chloride (98 - 107 mmol/L) 89 L Carbon Dioxide (22 - 30 mmol/L) 30 Anion Gap (5 - 16) 13 BUN (7 - 17 mg/dL) 11 Creatinine (0.5 - 1.0 mg/dL) 0.5 Estimated GFR (>60 ml/min) > 60 BUN/Creatinine Ratio (7 - 25 %) 22.0 Glucose (65 - 99 mg/dL) 123 H Calcium (8.4 - 10.2 mg/dL) 9.6 Total Bilirubin (0.2 - 1.3 mg/dL) 1.3 AST (14 - 36 U/L) 30 ALT (9 - 52 U/L) 20 Alkaline Phosphatase (<127 U/L) 135 H Troponin I (< 0.11 ng/ml) < 0.01 C-Reactive Prot, Quant (<1.0 mg/dL) > 9.0 H Total Protein (6.3 - 8.2 g/dL) 7.8 Albumin (3.5 - 5.0 g/dL) 3.5 Globulin (1.9 - 4.2 gm/dL) 4.3 H Albumin/Globulin Ratio (1.1 - 2.2 %) 0.8 L Amylase (30 - 110 U/L) 112 H Lipase (23 - 300 U/L) 1912 H Coagulation PT (9.4 - 12.5 SEC) 15.2 H INR (0.90 - 1.19) 1.45 H APTT (25 - 37 SEC) 47 H 26 Hematology CBC w Diff NO MAN DIFF REQ WBC (4.8 - 10.8 /CUMM) 13.2 H RBC (4.20 - 5.40 /CUMM) 4.31 Hgb (12.0 - 16.0 G/DL) 10.4 L Hct (37 - 47 %) 32.7 L MCV (81.0 - 99.0 FL) 75.8 L MCH (27.0 - 31.0 PG) 24.2 L RDW (11.5 - 14.5 %) 17.5 H Plt Count (130 - 400 /CUMM) 402 H MPV (7.4 - 10.4 FL) 7.1 L Gran % (42.2 - 75.2 %) 85.1 H Lymphocytes % (20.5 - 51.1 %) 6.9 L Monocytes % (1.7 - 9.3 %) 4.7 Eosinophils % (0 - 5 %) 3.2 Basophils % (0.0 - 2.0 %) 0.1 Absolute Granulocytes (1.4 - 6.5 /CUMM) 11.2 H Absolute Lymphocytes (1.2 - 3.4 /CUMM) 0.9 L Absolute Monocytes (0.10 - 0.60 /CUMM) 0.6 Absolute Eosinophils (0.0 - 0.7 /CUMM) 0.4 Absolute Basophils (0.0 - 0.2 /CUMM) 0 PUBS MCHC (33.0 - 37.0 G/DL) 31.9 L Imaging/Other Studies: Venous Doppler in Lower extremity 06/02/2016: IMPRESSION: Deep venous thrombosis of the left upper extremity with nonocclusive thrombus identified within the upper regions of the left internal jugular vein, with contiguous extension into the proximal segment of the left internal jugular vein , at the level of the brachiocephalic confluence. Chest/Thorax CTA 06/02/2016: IMPRESSION: 1. Adequate contrast opacification of the pulmonary arterial vasculature, without evidence of pulmonary embolism. 2. Prominent enhancing mediastinal adenopathy as well as confluent adenopathy within the subcarinal region as well as within the right hilar region, corresponding to the patient's known fartun metastases from metastatic esophageal carcinoma. Previously identified cutaneous metastases along the left anterior chest wall as well as along the left paramedian abdominal wall, at the right lateral abdominal wall and within the lower inner quadrant of the left breast increased in size relative to the prior examination. Additionally, there has been significant interval increase in size of a previously identified peritoneal metastasis within the left upper quadrant of the abdomen which is now visualized measuring 2.4 x 2.4 cm; previously, 1.4 x 1.4 cm. This constellation of findings is suggestive of interval progression of metastatic disease within the chest and abdomen. 3. Interval development of the left adrenal gland mass, suspicious for left adrenal gland metastasis. 4. Interval development of prominent bilateral axillary and subpectoral lymph nodes, suspicious for fartun metastases. 5. Interval development of a small left-sided pleural effusion with overlying left basilar compressive atelectasis. Assessment/Plan Assessment: Ms. Hernández is a 50-year-old female with asthma, alcohol usage, and recently diagnosed metastatic esophageal cancer who presents with new left IJ thrombus. She does not seem to have a previous line or IV in the region. It is likely related to compression by lymphadenopathy. Her underlying malignancy is likely increased her risk of thrombus. She has no PE on CTA. Imaging does not worsening of her underlying malignancy with new metastatic site. She is currently on heparin drip. This can be converted to enoxaparin for outpatient. She can be transitioned to oral anticoagulant as an outpatient. Enoxaparin may be the best option for the patient especially in malignancy setting. With regard to her malignancy, she will need therapy as soon as possible. Her tumor is HER2 positive and is a candidate for trastuzumab therapy with standard FOLFOX. She will need echocardiogram prior to starting trastuzumab. She will also need port placement for chemotherapy. As she is on heparin right now, it may be easier to have port place at this time with minimal stopping of anticoagulation. Surgery or IR may be able to do this. She is on fentanyl patch and oxycodone for abdominal pain. She has constipated currently. She will need to have an aggressive bowel regimen as her last bowel movement was 2-3 days ago. Recommendations: 1. Can transition to enoxaparin 2. Obtain echocardiogram if patient is inpatient 3. Port placement: consult surgery or IR, can also be done as an outpatient 4. Aggressive bowel regimen for constipation Problem List: 1. Internal jugular (IJ) vein thromboembolism, acute 2. Primary cancer of esophagus with metastasis to other site 3. Back pain 4. Abdominal pain 5. Pancreatitis Other Findings/Comments: Please call [phone] with any questions or concerns. Consult Acknowledgment - Thank you for your consult request.
[2016-06-03 11:52] LABS: PTT 52 SEC (25-37)
[2016-06-03 14:34] VITALS: BP 122/74
[2016-06-03 19:46] LABS: PT 16.7 SEC (9.4-12.5)
[2016-06-03 20:37] LABS: PTT 53 SEC (25-37)
[2016-06-03 22:35] VITALS: BP 100/70
[2016-06-04 04:10] LABS: PTT 64 SEC (25-37)
[2016-06-04 06:44] VITALS: BP 144/86
--- NOTE | 2016-06-04 07:33 | PN- Housestaff ---
See Addendum Subjective Follow-up For: Epigastric pain Pain in left arm/DVT Subjective: Patient seen and examined this morning. She was sitting in bed in no acute distress. She reported pain and swelling in her left arm, ongoing pain and epigastric area, was able to tolerate low-fat diet. She reports feeling nauseous but no vomiting. Afebrile. vitals within normal limits. She is scheduled for port placement by IR today. Was kept nothing by mouth after mid-night for the procedure. Review of Systems Constitutional: Denies: chills, fever. Cardiovascular: Denies: chest pain, palpitations. Respiratory: Denies: cough, short of breath, sputum production. Gastrointestinal: Reports: see HPI, abdominal pain. Denies: constipation, diarrhea, nausea, vomiting. Genitourinary: Denies: dysuria, frequency. Objective Last 24 Hrs of Vital Signs/I&O Vital Signs Date Time Temp Pulse Resp B/P Pulse O2 O2 Flow FiO2 Ox Delivery Rate 06/04 0644 98.0 94 18 144/86 93 06/03 2235 98.0 102 20 100/70 97 06/03 1434 98.5 106 20 122/74 94 Intake & Output 06/04 1600 06/04 0800 06/04 0000 Intake Total 200 799.2 Output Total Balance 200 799.2 Intake, IV 200 199.2 Intake, Oral 600 Physical Exam General Appearance: Alert, Oriented X3, Cooperative, No Acute Distress Cardiovascular: Regular Rate, Normal S1, Normal S2, No Murmurs Lungs: Clear to Auscultation, Normal Air Movement Abdomen: Normal Bowel Sounds, Soft, tenderness in epigastric area Extremities: No Clubbing, No Cyanosis, No Edema, left upper extremity swelling and tenderness extending to the neck Current Medications: Current Medications Sig/Beata Start time Last Medication Dose Route Stop Time Status Admin Acetaminophen 325 MG Q6P PRN 06/03 0215 AC PO Fentanyl Citrate 50 MCG Q3D 06/06 1200 AC TOP Fentanyl Citrate 25 MCG Q3D 06/03 1200 DC TOP Heparin Sodium 0 .STK-MED ONE 06/04 0809 DC (Porcine) IV Heparin Sodium 5,000 UNIT .STK-MED ONE 06/03 2209 DC (Porcine) IV 06/03 2210 Heparin Sodium 2,267 UNIT ONCE ONE 06/03 2200 DC 06/03 (Porcine) IV 12/29 2201 2212 Heparin Sodium 2,267 UNIT ONCE ONE 06/03 1545 DC (Porcine) IV 06/03 1546 Heparin Sodium 5,000 UNIT .STK-MED ONE 06/03 1303 DC (Porcine) IV 06/03 1304 Heparin Sodium 25,000 UNIT Q24H 06/02 2200 AC 06/03 (Porcine) IV 2133 Sodium Chloride 500 ML Hydromorphone HCl 2 MG Q6P PRN 06/03 1200 AC 06/04 PO 0751 Hydromorphone HCl 1 MG Q4P PRN 06/03 0245 DC 06/03 IV 0854 Lidocaine 0 .STK-MED ONE 06/04 0808 DC .ROUTE Lidocaine/Epinephrine 0 .STK-MED ONE 06/04 08 DC .ROUTE Ondansetron HCl 4 MG .STK-MED ONE 06/04 0013 DC IM 06/04 0014 Ondansetron HCl 1 MG Q6P PRN 06/03 0230 AC 06/04 IV 0606 Oxycodone HCl 10 MG Q4P PRN 06/03 1400 AC 06/04 PO 0603 Polyethylene Glycol 17 GM DAILY 06/03 1144 AC 06/03 PO 1405 Senna/Docusate Sodium 2 TAB DAILY 06/03 1144 AC 06/03 PO 1405 Last 24 Hrs of Lab/Al Results Last 24 Hrs of Labs/Mics: Laboratory Tests 06/04/16 0345: APTT 64 H 06/03/16 1910: APTT Cancelled 06/03/16 1900: PT 16.7 H, INR 1.60 H, APTT 53 H 06/03/16 1517: PT Cancelled, INR Cancelled 06/03/16 1128: APTT 52 H Assessment/Plan Assessment: Patient is a 50-year-old female with past medical history of diabetes, asthma, recent diagnosis of esophageal cancer( May 2016) with extensive metastasis presented to the ED today with a chief complaint of swelling of the left upper extremity. s/p HER-2 positive adenocarcinoma of the esophagus with extensive metastasis to the abdominal wall, left breast, lymph nodes, bones, and adrenal gland. She is following up with Dr. Garcia as an outpatient and has not been started on chemotherapy. Vitals temperature 97.4, pulse 113, respiration 18, blood pressure 151/92, saturating 97% on room air Labs showed a white count of 13.2, H&H of 10.4/32.7, MCV 75.8, platelet count 402, sodium 132, potassium 3.6, glucose 123, troponin negative, alkaline phosphatase 135, lipase 1912, INR 1.45. Dopplers: DVT in the upper left extremity with nonocclusive thrombus in the upper region of the internal jugular vein with contiguous extension to the proximal segment of the left internal jugular vein at the level of brachiocephalic confluence. patient currently managed for following conditions: 1. Left upper extremity DVT in the setting of recently diagnosed metastatic esophageal cancer. -Vitals every shift -Patient on heparin drip will switch to oral anticoagulation. -Heme/onc consult, appreciated will f/u recs, getting a baseline ECHO in anticipation of near future chemotherapy, IR to place a port for chemotherapy, IV heparin held at 4:30 AM this morning as per IR recommendations, patient has been nothing by mouth overnight. -Pain control with roxicodone, dilaudid, fentanyl patch. Recurrent pancreatitis: -Patient was recently treated for pancreatitis early May. Continues to have mild abdominal discomfort and back pain. Lipase 191 -Keeping on RL at 200 ML per hour -She has been able to tolerate full liquid diet well, diet advanced to low fat regular diet, patient tolerating well. -Pain control with IV Dilaudid and Tylenol -IV Zofran for nausea. Microcytic anemia: Indicis were consistent with iron deficiency. -No signs of overt GI bleed -We will maintain hemoglobin above 7 Full code Mild/ Severe Pathway Full liquid diet Problem List: 1. Metastatic cancer 2. Internal jugular (IJ) vein thromboembolism, acute 3. Abdominal pain 4. Primary cancer of esophagus with metastasis to other site 5. Esophageal cancer Pain Ratin Pain Location: Left upper extremity Pain Goal: Remain pain free Pain Plan: roxicodone, dilaudid, fentanyl patch. Tomorrow's Labs & Rationales: as per tele team
--- NOTE | 2016-06-04 09:30 | PN- Oncology ---
Subjective Subjective: She still has some pain in back and abdomen. Review of Systems: Constitutional: Denies: chills, fever, weakness. Cardiovascular: Denies: chest pain, orthopena. Respiratory: Denies: short of breath. GI: Reports: abdominal pain, constipation. Denies: nausea. Genitourinary: Denies: discharge, dysuria. Musculoskeletal: Reports: back pain, joint pain. Neurological/Psychological: Reports: anxiety. Hematologic/Endocrine: Denies: bruising. All Other Systems: Reviewed and Negative Objective Vital Signs and I&Os Vital Signs Date Time Temp Pulse Resp B/P Pulse O2 O2 Flow FiO2 Ox Delivery Rate 06/04 0644 98.0 94 18 144/86 93 06/03 2235 98.0 102 20 100/70 97 06/03 1434 98.5 106 20 122/74 94 Intake & Output 06/04 1600 06/04 0800 06/04 0000 06/03 1600 06/03 0800 06/03 0000 Intake Total 200 799.2 790 940 Output Total Balance 200 799.2 790 940 Intake, IV 200 199.2 140 700 Intake, Oral 600 650 240 Patient 56.699 kg 56.699 kg Weight Physical Exam: General Appearance: alert, awake, comfortable Head: atraumatic, normal appearance Ears, Nose, Throat: normal pharynx Neck: normal inspection, fullness on left supraclavicular region Respiratory: normal breath sounds, chest non-tender, no respiratory distress Cardiovascular: tachycardia Gastrointestinal: normal bowel sounds, soft, tenderness (mild, diffuse) Extremities: normal inspection, 1+ LUE edema Neurologic/Psych: awake, alert, oriented x 3 Current Medications: Current Medications Sig/Beata Start time Last Medication Dose Route Stop Time Status Admin Acetaminophen 325 MG Q6P PRN 06/03 0215 AC PO Fentanyl Citrate 50 MCG Q3D 06/06 1200 AC TOP Fentanyl Citrate 25 MCG Q3D 06/03 1200 DC TOP Heparin Sodium 0 .STK-MED ONE 06/04 08 DC (Porcine) IV Heparin Sodium 5,000 UNIT .STK-MED ONE 06/03 2209 DC (Porcine) IV 06/03 2210 Heparin Sodium 2,267 UNIT ONCE ONE 06/03 2200 DC 06/03 (Porcine) IV 06/03 2201 2212 Heparin Sodium 2,267 UNIT ONCE ONE 06/03 1545 DC (Porcine) IV 06/03 1546 Heparin Sodium 5,000 UNIT .STK-MED ONE 06/03 1303 DC (Porcine) IV 06/03 1304 Heparin Sodium 25,000 UNIT Q24H 06/02 2200 AC 06/03 (Porcine) IV 2133 Sodium Chloride 500 ML Hydromorphone HCl 2 MG Q6P PRN 06/03 1200 AC 06/04 PO 0751 Hydromorphone HCl 1 MG Q4P PRN 06/03 0245 DC 06/03 IV 0854 Lidocaine 0 .STK-MED ONE 06/04 0808 DC .ROUTE Lidocaine/Epinephrine 0 .STK-MED ONE 06/04 0808 DC .ROUTE Ondansetron HCl 4 MG .STK-MED ONE 06/04 0013 DC IM 06/04 0014 Ondansetron HCl 1 MG Q6P PRN 06/03 0230 AC 06/04 IV 0606 Oxycodone HCl 10 MG Q4P PRN 06/03 1400 AC 06/04 PO 0603 Polyethylene Glycol 17 GM DAILY 06/03 1144 AC 06/03 PO 1405 Senna/Docusate Sodium 2 TAB DAILY 06/03 1144 AC 06/03 PO 1405 Assessment/Plan Assessment/Recommendations: Ms. Hernández is a 50-year-old female with asthma, alcohol usage, and recently diagnosed metastatic esophageal cancer who presents with new left IJ thrombus. Her underlying malignancy is likely increased her risk of thrombus along with possible extrinsic compression of . She has no PE on CTA. Imaging does not worsening of her underlying malignancy with new metastatic site. She is on heparin drip right now. She is tentatively scheduled to get port placed today. Echocardiogram pending. She will follow up next week to discuss therapy. Recommendations: 1. Can transition to enoxaparin 2. Aggressive bowel regimen for constipation 3. Follow up next week for discussion of therapy Please call [phone] with any questions or concerns. Problem List: 1. Primary cancer of esophagus with metastasis to other site 2. Abdominal pain 3. Back pain 4. Internal jugular (IJ) vein thromboembolism, acute
--- NOTE | 2016-06-04 10:38 | Patient Discharge Instructions ---
Discharge Instructions General Discharge Information You were seen/treated for: Left upper extremity DVT in the setting of recently diagnosed metastatic esophageal cancer. Epigastric pain Special Instructions: A port for chemotherapy has been placed, You woule need an Echocardiogramfor cardiac function assessment in anticipation of near future chemotherapy, Please f/u with your oncologist and PCP upon discharge. Diet Continue normal diet: Yes Recommended Diet: Low Fat Activity Activity Self Limited: Yes Acute Coronary Syndrome Inclusion Criteria At DC or during hospital stay patient has or had the following: ACS DIAGNOSIS No Discharge Core Measures Meds if any: Prescribed or Continued at Discharge Meds if any: NOT Prescribed or Continued at Discharge Congestive Heart Failure Inclusion Criteria At DC or during hospital stay patient has or had the following: CHF DIAGNOSIS No Discharge Core Measures Meds if any: Prescribed or Continued at Discharge Meds if any: NOT Prescribed or Continued at Discharge Cerebrovascular accident Inclusion Criteria At DC or during hospital stay patient has or had the following: CVA/TIA Diagnosis No Discharge Core Measures Meds if any: Prescribed or Continued at Discharge Meds if any: NOT Prescribed or Continued at Discharge Venous thromboembolism Inclusion Criteria VTE Diagnosis No VTE Type NONE VTE Confirmed by (Test) NONE Discharge Core Measures - Per Current guidelines, there needs to be overlap - treatment for the first 5 days of Warfarin therapy. - If discharged on Warfarin prior to 5 days of - overlap therapy, the patient will need to be - assessed for post discharge needs including - *Post discharge parental anticoagulation - *Warfarin and/or parental anticoagulation education - *Follow up date to check INR post discharge At least 5 days overlap therapy as Inpatient No Meds if any: Prescribed or Continued at Discharge Note: Overlap Therapy is Warfarin and Anticoagulant Meds if any: NOT Prescribed or Continued at Discharge
[2016-06-04] MEDS ORDERED: FENTANYL1 EAC3 TOP (10:39)
[2016-06-04] MEDS ORDERED: SENNA PLUS TAB1 EACH PO (10:41)
[2016-06-04] MEDS ORDERED: MIRALAX119 GM PO (10:41)
--- NOTE | 2016-06-04 10:55 | Discharge Summary ---
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 Vitals temperature 97.4, pulse 113, respiration 18, blood pressure 151/92, saturating 97% on room air Labs showed a white count of 13.2, H&H of 10.4/32.7, MCV 75.8, platelet count 402, sodium 132, potassium 3.6, glucose 123, troponin negative, alkaline phosphatase 135, lipase 1912, INR 1.45. Dopplers: DVT in the upper left extremity with nonocclusive thrombus in the upper region of the internal jugular vein with contiguous extension to the proximal segment of the left internal jugular vein at the level of brachiocephalic confluence. Physical exam on presentation: Gen.: Awake, alert and oriented 3, mild distress, anxious HEENT: PERRLA, EOMI. Soft subcutaneous mass seen on the right side of the neck about 2X2 cm. A small knotty mass is felt on the left side of the neck. Respiratory,Cardiovascular and Gastrointestinal normal Extremities: 1+ edema in the left upper extremity extending from the hand to the neck She was admitted to general medicine floor, started on IV heparin drip, she was seen by Dr. Carrillo, it was understood that patient will be needing chemotherapy soon, that's why it was decided to get port placement which she was in the hospital, unfortunately during the procedure he found out that both the right and left IJ's were thrombosed and port was displaced in the right subclavian. He also became hypertensive during the procedure and tachycardic, she was then transferred to telemetry floor. Her stay on telemetry floor was uneventful and was transferred back to general floor, she was badly constipated, nauseous, and extreme amount of back pain. She was started on extensive pain and bowel regimen. 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 Allergies: Coded Allergies: NO KNOWN ALLERGIES (06/07/16) Disposition Summary Disposition Principal Diagnosis: Left upper extremity DVT Additional Diagnosis: Esophageal metastasis cancer Discharge Disposition: home or self care Discharge Instructions General Discharge Information Code Status: Full Code Patient's Diet: Regular as tolerated Patient's Activity: As tolerated Follow-Up Instructions/Appts: Twice to follow-up with hematology oncology for further plans on chemotherapy. Medications at Discharge Discharge Medications: Stop taking the following medications: Hydromorphone HCl (Dilaudid) 2 MG TABLET ORAL EVERY SIX HOURS NEEDED as needed for PAIN Qty = 20 Oxycodone HCl (Oxycodone HCl) 10 MG TABLET ORAL 4 times daily as needed as needed for breakthrough pain Qty = 15 Continue taking these medications: Albuterol Sulfate (Proair Hfa) 90 MCG HFA.AER.AD 2 Puff Inhale through mouth EVERY 4-6 HOURS NEEDED as needed for ASTHMA Comments: NOT GIVEN IN HOSPITAL Ferrous Sulfate (Ferrous Sulfate) 325 MG (65 MG IRON) TABLET.DR 1 Milligram ORAL THREE TIMES DAILY Qty = 30 Comments: NOT GIVEN IN HOSPITAL Folic Acid (Folic Acid) 1 MG TABLET 1 Milligram ORAL DAILY Qty = 30 Comments: NOT GIVEN IN HOSPITAL Multivitamin (One Daily Multivitamin) 1 EACH TABLET 1 Tablet ORAL DAILY Qty = 30 Comments: NOT GIVEN IN HOSPITAL Thiamine HCl (Vitamin B-1) 100 MG TABLET 1 Milligram ORAL DAILY Qty = 30 Comments: NOT GIVEN IN HOSPITAL Fentanyl Citrate (Duragesic) 50 MCG/HOUR PATCH.TD72 1 Patch On the skin Every 3 days Qty = 2 Comments: Last Taken: 06/04/16 Time: 6PM Start taking the following new medications: Enoxaparin Sodium (Lovenox) 60 MG/0.6 ML SYRINGE 0.6 Milliliters Inject into fatty tissue TWICE DAILY Days = 30 No Refills Instructions: . Comments: Last Taken: 06/06/16 Time: 10AM Polyethylene Glycol 3350 (Miralax) 17 GRAM/DOSE POWDER 17 Gram ORAL DAILY Qty = 30 No Refills Comments: Last Taken: 06/06/16 Time: 10AM Sennosides/Docusate Sodium (Senna Plus Tablet) 8.6 MG-50 MG TABLET 2 Tablet ORAL DAILY Qty = 30 No Refills Comments: Last Taken: 06/06/16 Time: 10AM Oxycodone HCl (Oxycontin) 10 MG TAB.ER.12H 1 Tablet ORAL TWICE DAILY Qty = 8 No Refills Oxycodone HCl (Oxycodone HCl) 5 MG TABLET 3 Tablet ORAL EVERY 4 HOURS NEEDED as needed for severe pain Qty = 72 No Refills Copies To: ROC LEON M.D; ALEKSANDRA SERRANO,YASMINE CARRILLO MD,RAJENDRA Attending MD Review Statement Documenting Attending: ROC LEON M.D Other Findings: I have reviewed the discharge summary.
[2016-06-04] MEDS ORDERED: LOVENOX40 MG/0.1 SC (11:08)
[2016-06-04] MEDS ORDERED: LOVENOX60 MG/0.1 SC (11:15)
--- NOTE | 2016-06-04 12:29 | INTERVENTIONAL RADIOLOGY RPT ---
CLINICAL HISTORY: The patient is a 50 years-old Female with metastatic esophageal carcinoma requiring chemotherapy, who presents to interventional radiology for placement of a single lumen chest port as requested. PROCEDURES: 1. Real-time ultrasound-guided access into the right subclavian vein after documentation of selected vessel patency, and permanent imaging storing in the patient records. 2. Placement of single lumen power port. PHYSICIANS: Dr. Chilo Russell (attending). MONITORING: The procedure was performed with conscious sedation and analgesia under my direct supervision. Continuous blood pressure, pulse oximetry as well as heartrate monitoring was performed by an independent registered nurse. Physician intraservice sedation time was 95 minutes. MEDICATIONS: 1. 3 mg of Versed and 150 micrograms of fentanyl were administered. 2. 10 mL of 1% lidocaine SQ. 3. 15 mL of 1% lidocaine with epinephrine SQ. 4. Ancef 1 g intravenous. 5. 10 mg hydralazine IV x1 was used during the procedure to treat hypertension. COMPLICATIONS: None. ESTIMATED BLOOD LOSS: <5 mL SPECIMENS: None. IMPLANT: 6.6 Fr Vaccess single lumen PowerPort. CONTRAST: None. FLUOROSCOPY TIME: 2.0 minutes PROCEDURE NOTE: Informed consent was obtained from the patient prior to the procedure. During this process, the procedure and potential alternatives were explained along with the intended outcome and benefits. The risks of the procedure, including the possibility of an unsuccessful procedure, as well as the risk of not doing the procedure, were discussed. The patient was given the opportunity to ask questions regarding the procedure and appeared competent to make decisions. A signed consent form documenting this discussion was placed in the medical record. A time-out procedure was performed. The patient was placed supine on the fluoroscopy table. The right neck and chest were prepped and draped in usual sterile fashion. Limited ultrasound was used to evaluate the right internal jugular vein. This demonstrated several enlarged necrotic lymph nodes within the lower right neck adjacent to the internal jugular vein. The internal jugular vein was occluded. After administration of 1% local lidocaine anesthesia, an attempt was made to pass a 21-gauge needle into the occluded right internal jugular vein, however, a wire could not be advanced through the needle. Ultrasound was then used to evaluate the left internal jugular vein which was also completely occluded. The right subclavian vein was then evaluated and was patent. The decision was made to place the port via the subclavian vein. After administration of 1% local lidocaine anesthesia, a 21-gauge needle was used to puncture the right subclavian vein with a 21-gauge needle under ultrasound guidance with an image stored for the record. A 0.018 inch wire was advanced through the needle into the central veins, as confirmed fluoroscopically. The needle was exchanged for a 5 Australian coaxial dilator. A site on the upper anterior chest was then given lidocaine with epinephrine as was the subcutaneous tract connecting the venipuncture site. A #15 blade was used to make an approximately 2 cm long incision on the upper anterior chest. The subcutaneous tissues inferior to this were spread with a Zaina clamp. The pocket was irrigated with saline and dried with gauze. Venous bleeding was encountered from the port pocket which needed to be controlled with the use of a disposable electric cautery device. Good hemostasis was achieved. The distal end of a 6.6 Australian single lumen Medcomp PowerPort catheter was then tunneled from the pocket to the venipuncture site. The dilator in the vein was exchanged over a 0.035 inch wire for 7 Australian peel-away sheath. The catheter was advanced through this and the peel-away sheath removed. The proximal end of the catheter was cut to an appropriate length and attached to the port. The port was then placed in the pocket. The port was accessed and noted to aspirate and flush well. Fluoroscopy confirmed the position of the tip of the catheter at the superior RA/SVC junction. The port was flushed with 5 mL (500 mg) Hep-Lock solution. The chest wall pocket was then closed using burried interrupted 3-0 Vicryl sutures. A single 5-0 Vicryl interrupted suture was used to close the venotomy site. There was excellent apposition of tissue planes and Dermabond glue was used for added closure at the incision over the chest as well as at the dermatotomy site. Steri-Strips were applied. FINDINGS: 1. Occluded bilateral internal jugular veins. 2. Patent right subclavian vein. 3. Placement of a single lumen PowerPort via the right subclavian vein. Tip of catheter in the superior cavoatrial junction. 3. The port flushes and aspirates well. 4. No pneumothorax. IMPRESSION: Successful placement of a 6.6 Fr single lumen PowerPort in the right chest via the right subclavian vein. Both internal jugular veins are occluded. The findings were discussed with Dr. Garcia. PLAN: 1. The patient was stable after the procedure and was transferred to the interventional recovery area. The patient will be transported back to her medical room. 2. The port may be used immediately. This is a power injectable port that may be used for CT power injections. 3. The patient may shower. However, the site should NOT be submersed in water until the glue peels off (in approximately 7-10 days).
[2016-06-04 12:57] VITALS: BP 144/70
[2016-06-04 15:32] LABS: PTT 25 SEC (25-37)
[2016-06-04 16:00] VITALS: BP 126/70
--- NOTE | 2016-06-04 18:18 | Cons- Cardiology ---
See Addendum General Information and HPI Consulting Request Date of Consult: 06/04/16 Requested By: ROC LEON M.D Reason for Consult: Tachycardia History of Present Illness: The patient is a 50-year-old female with history of asthma and alcohol use who was recently admitted for pancreatitis, and diagnosed with esophageal cancer. She presented to the hospital with left hand swelling and neck pain. She was diagnosed with left upper extremity DVT. CT angiogram of the chest was negative for pulmonary embolism. Today, she underwent fluoroscopic guided placement of a Port-A-Cath. The catheters placement was complicated because of occluded bilateral internal ventricular veins, and the catheter was placed in the right subclavian vein. Subsequent to the procedure, the patient was noted to have elevated blood pressure and heart rate. The rhythm at that time was sinus tachycardia. She was placed on telemetry for further monitoring. She reports that she is feeling well. She denies any chest pain. No palpitations. No shortness of breath. No diaphoresis. No syncope. No lightheadedness or dizziness. No nausea or vomiting. Allergies/Medications Allergies: Coded Allergies: NO KNOWN ALLERGIES (06/07/11) Home Med List: Albuterol Sulfate (Proair Hfa) 90 MCG HFA.AER.AD 2 PUF INH Q4-6 PRN PRN ASTHMA (Reported) Enoxaparin Sodium (Lovenox) 60 MG/0.6 ML SYRINGE 0.6 ML SC BID anticoagulation Fentanyl Citrate (Duragesic) 50 MCG/HOUR PATCH.TD72 1 PAT TOP Q3D pain Ferrous Sulfate 325 MG (65 MG IRON) TABLET.DR 1 MG PO TID anemia Folic Acid 1 MG TABLET 1 MG PO DAILY anemia Hydromorphone HCl (Dilaudid) 2 MG TABLET 1 TAB PO Q6P PRN PAIN Multivitamin (One Daily Multivitamin) 1 EACH TABLET 1 TAB PO DAILY anemia Oxycodone HCl 10 MG TABLET 1 TAB PO 4XDP PRN breakthrough pain Polyethylene Glycol 3350 (Miralax) 17 GRAM/DOSE POWDER 17 GM PO DAILY CONSTIPATION Sennosides/Docusate Sodium (Senna Plus Tablet) 8.6 MG-50 MG TABLET 2 TAB PO DAILY CONSTIPATION Thiamine HCl (Vitamin B-1) 100 MG TABLET 1 MG PO DAILY anemia Current Medications: Current Medications Sig/Beata Start time Last Medication Dose Route Stop Time Status Admin Acetaminophen 325 MG Q6P PRN 06/03 0215 AC PO Enoxaparin Sodium 60 MG Q12 06/05 1000 AC SC Fentanyl Citrate 50 MCG Q3D 06/06 1200 DC TOP Fentanyl Citrate 50 MCG Q3D 06/04 1715 AC 06/04 TOP 1817 Heparin Sodium 25,000 UNIT Q24H 06/04 1515 AC 06/04 (Porcine) IV 06/05 0900 1535 Sodium Chloride 500 ML Heparin Sodium 0 .STK-MED ONE 06/04 0809 DC (Porcine) IV Heparin Sodium 5,000 UNIT .STK-MED ONE 06/03 2209 DC (Porcine) IV 06/03 2210 Heparin Sodium 2,267 UNIT ONCE ONE 06/03 2200 DC 06/03 (Porcine) IV 06/03 220 2212 Heparin Sodium 25,000 UNIT Q24H 06/02 2200 DC 06/03 (Porcine) IV 06/05 0900 2133 Sodium Chloride 500 ML Hydralazine HCl 10 MG .STK-MED ONE 06/04 1130 DC IV 06/04 1131 Hydromorphone HCl 2 MG Q6P PRN 06/03 1200 AC 06/04 PO 1627 Labetalol HCl 10 MG .STK-MED ONE 06/04 1030 DC IV 06/04 1031 Lidocaine 0 .STK-MED ONE 06/04 0808 DC .ROUTE Lidocaine/Epinephrine 0 .STK-MED ONE 06/04 0808 DC .ROUTE Ondansetron HCl 4 MG .STK-MED ONE 06/04 0558 DC IM 06/04 0559 Ondansetron HCl 4 MG .STK-MED ONE 06/04 0013 DC IM 06/04 0014 Ondansetron HCl 1 MG Q6P PRN 06/03 0230 AC 06/04 IV 0606 Oxycodone HCl 10 MG Q4P PRN 06/03 1400 AC 06/04 PO 1817 Polyethylene Glycol 17 GM DAILY 06/03 1144 AC 06/03 PO 1405 Senna/Docusate Sodium 2 TAB DAILY 06/03 1144 AC 06/03 PO 1405 Review of Systems Review of Systems: No rash. No tremor. No melena. No diaphoresis. All other systems were reviewed, and were noted to be negative. 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 ENVIRONMENTAL INTERN/Reproductive: NONE Surgical History Surgical History: none, non-contributory Family History Relations & Conditions If Any: MOTHER Myocardial infarction Psychosocial History Services at Home: None Smoking Status: Current Some Day Smoker Exam & Diagnostic Data Vital Signs and I&O Vital Signs Date Time Temp Pulse Resp B/P Pulse O2 O2 Flow FiO2 Ox Delivery Rate 06/04 1600 98.4 102 18 126/70 94 Room Air 06/04 1257 98.9 125 17 144/70 97 Room Air 06/04 1245 97 Room Air 06/04 0644 98.0 94 18 144/86 93 06/03 2235 98.0 102 20 100/70 97 Intake & Output 06/04 1600 06/04 0800 06/04 0000 06/03 1600 06/03 0800 06/03 0000 Intake Total 120 200 799.2 790 940 Output Total Balance 120 200 799.2 790 940 Intake, IV 200 199.2 140 700 Intake, Oral 120 600 650 240 Patient 125 lb 125 lb 125 lb Weight Physical Exam: Gen: The patient is in no acute distress HEENT: Normal nose, ears, and oropharynx. Pupils equal bilaterally. Conjunctiva normal. Neck: Supple with no JVD, no masses, and no thyromegaly Lungs: Clear to auscultation with normal respiratory effort Heart: RRR, S1, S2, no murmurs. 1+ left upper extremity edema, 2+ pulses in the lower extremities bilaterally Abdomen: Soft, nontender, no masses. No hepatomegaly. No splenomegaly Extremities: No clubbing or cyanosis. Normal muscle strength in the upper and lower extremities Skin: Normal skin turgor with no skin ulcers or lesions noted. Neuro: Cranial nerves intact. Sensation intact Psych: Alert and oriented 3 with appropriate affect Labs/Al Results: Laboratory Tests 06/04 06/04 06/03 06/03 06/03 1430 0345 1910 1900 1517 Coagulation PT (9.4 - 12.5 SEC) 16.7 H Cancelled INR (0.90 - 1.19) 1.60 H Cancelled APTT (25 - 37 SEC) 25 64 H Cancelled 53 H 06/03 06/03 06/02 1128 0420 2200 Chemistry Sodium (137 - 145 mmol/L) 132 L Potassium (3.5 - 5.1 mmol/L) 3.6 Chloride (98 - 107 mmol/L) 89 L Carbon Dioxide (22 - 30 mmol/L) 30 Anion Gap (5 - 16) 13 BUN (7 - 17 mg/dL) 11 Creatinine (0.5 - 1.0 mg/dL) 0.5 Estimated GFR (>60 ml/min) > 60 BUN/Creatinine Ratio (7 - 25 %) 22.0 Glucose (65 - 99 mg/dL) 123 H Calcium (8.4 - 10.2 mg/dL) 9.6 Total Bilirubin (0.2 - 1.3 mg/dL) 1.3 AST (14 - 36 U/L) 30 ALT (9 - 52 U/L) 20 Alkaline Phosphatase (<127 U/L) 135 H Troponin I (< 0.11 ng/ml) < 0.01 C-Reactive Prot, Quant (<1.0 mg/dL) > 9.0 H Total Protein (6.3 - 8.2 g/dL) 7.8 Albumin (3.5 - 5.0 g/dL) 3.5 Globulin (1.9 - 4.2 gm/dL) 4.3 H Albumin/Globulin Ratio (1.1 - 2.2 %) 0.8 L Amylase (30 - 110 U/L) 112 H Lipase (23 - 300 U/L) 1912 H Coagulation PT (9.4 - 12.5 SEC) 15.2 H INR (0.90 - 1.19) 1.45 H APTT (25 - 37 SEC) 52 H 47 H 26 Hematology CBC w Diff NO MAN DIFF REQ WBC (4.8 - 10.8 /CUMM) 13.2 H RBC (4.20 - 5.40 /CUMM) 4.31 Hgb (12.0 - 16.0 G/DL) 10.4 L Hct (37 - 47 %) 32.7 L MCV (81.0 - 99.0 FL) 75.8 L MCH (27.0 - 31.0 PG) 24.2 L RDW (11.5 - 14.5 %) 17.5 H Plt Count (130 - 400 /CUMM) 402 H MPV (7.4 - 10.4 FL) 7.1 L Gran % (42.2 - 75.2 %) 85.1 H Lymphocytes % (20.5 - 51.1 %) 6.9 L Monocytes % (1.7 - 9.3 %) 4.7 Eosinophils % (0 - 5 %) 3.2 Basophils % (0.0 - 2.0 %) 0.1 Absolute Granulocytes (1.4 - 6.5 /CUMM) 11.2 H Absolute Lymphocytes (1.2 - 3.4 /CUMM) 0.9 L Absolute Monocytes (0.10 - 0.60 /CUMM) 0.6 Absolute Eosinophils (0.0 - 0.7 /CUMM) 0.4 Absolute Basophils (0.0 - 0.2 /CUMM) 0 PUBS MCHC (33.0 - 37.0 G/DL) 31.9 L Diagnostic Data EKG Results EKG tracing is independently reviewed, and reveals sinus tachycardia at 106, left atrial abnormality, borderline T-wave abnormality Other Results CTA chest: 1. Adequate contrast opacification of the pulmonary arterial vasculature, without evidence of pulmonary embolism. 2. Prominent enhancing mediastinal adenopathy as well as confluent adenopathy within the subcarinal region as well as within the right hilar region, corresponding to the patient's known fartun metastases from metastatic esophageal carcinoma. Previously identified cutaneous metastases along the left anterior chest wall as well as along the left paramedian abdominal wall, at the right lateral abdominal wall and within the lower inner quadrant of the left breast increased in size relative to the prior examination. Additionally, there has been significant interval increase in size of a previously identified peritoneal metastasis within the left upper quadrant of the abdomen which is now visualized measuring 2.4 x 2.4 cm; previously, 1.4 x 1.4 cm. This constellation of findings is suggestive of interval progression of metastatic disease within the chest and abdomen. 3. Interval development of the left adrenal gland mass, suspicious for left adrenal gland metastasis. 4. Interval development of prominent bilateral axillary and subpectoral lymph nodes, suspicious for fartun metastases. 5. Interval development of a small left-sided pleural effusion with overlying left basilar compressive atelectasis. Ultrasound of the left upper extremity: Deep venous thrombosis of the left upper extremity with nonocclusive thrombus identified within the upper regions of the left internal jugular vein, with contiguous extension into the proximal segment of the left internal jugular vein, at the level of the brachiocephalic confluence. Assessment/Plan Assessment/Plan The patient is a pleasant 50-year-old female who was recently diagnosed with esophageal cancer. She underwent placement of a Port-A-Cath today. She is found to have a right upper extremity DVT. The bilateral internal jugulovenous veins were found to be occluded, and the Port-A-Cath was placed in the left intraventricular vein. Postprocedure, she was noted to have a sinus tachycardia with elevated blood pressure. The blood pressure subsequently normalized. Recommendations: * Monitor on telemetry for further arrhythmias * Echocardiogram * The blood pressures currently normal off medications. We will continue to monitor blood pressure and treat for hypertension if needed. Consult Acknowledgment - Thank you for your consult request.
[2016-06-04 20:36] VITALS: BP 128/70
--- NOTE | 2016-06-04 21:08 | ECHOCARDIOGRAM REPORT ---
ANDRAE BUTCHER Age: 50 : 1965 Gender: F Exam Date: 06/04/2016 12:15 Exam Location: [facility] Ht (in): 59 Wt (lb): 125 BSA: 1.55 BP: 149 / 89 Ordering Physician: LUIS MIGUEL OTTO MD Referring Physician: LUIS MIGUEL OTTO MD Technologist: Boy Valdes RDCS Room Number: Indications: SVT Rhythm: Sinus Technical Quality: Fair FINDINGS Left Ventricle Normal size left ventricle. Normal left ventricular wall thickness. Normal left ventricular ejection fraction visually estimated at > 55%. No obvious regional wall motion abnormalities. Right Ventricle Normal right ventricular size and function. Right Atrium Normal right atrial size. Left Atrium Normal left atrial size. Mitral Valve Mitral valve thickened. Mild mitral regurgitation. Aortic Valve Diffuse thickening (sclerosis) of the aortic valve cusps without reduced excursion. No aortic stenosis. No aortic regurgitation. Tricuspid Valve Tricuspid valve not well visualized, grossly normal. Mild tricuspid regurgitation. No evidence of pulmonary hypertension. Pulmonic Valve Pulmonic valve not well visualized, grossly normal. Pericardium No pericardial effusion. Great Vessels Normal size aortic root. CONCLUSIONS Normal size left ventricle. Normal left ventricular wall thickness. Normal left ventricular ejection fraction visually estimated at > 55%. Mild mitral regurgitation. Mild tricuspid regurgitation. Carlos Braden M.D. (Electronically Signed) Final Date: 04 June 2016 21:07 MEASUREMENTS (Male / Female) Normal Values 2D ECHO LV Diastolic Diameter PLAX 2.8 cm 4.2 - 5.9 / 3.9 - 5.3 cm LV Systolic Diameter PLAX 2.0 cm 2.1 - 4.0 cm LV Fractional Shortening PLAX 28.6 % 25 - 46 % LV Ejection Fraction 2D Teich 56.9 % IVS Diastolic Thickness 1.1 cm LVPW Diastolic Thickness 1.1 cm LV Relative Wall Thickness 0.8 RV Internal Dim ED PLAX 2.7 cm 1.9 - 3.8 cm LVOT Diameter 1.7 cm Aortic Root Diameter 2.2 cm LA Systolic Diameter LX 2.1 cm 3.0 - 4.0 / 2.7 - 3.8 cm Ascending Aorta Diameter 2.4 cm DOPPLER AV Peak Velocity 156.0 cm/s AV Peak Gradient 9.7 mmHg AV Mean Velocity 97.2 cm/s AV Mean Gradient 5.0 mmHg AV Velocity Time Integral 21.4 cm LVOT Peak Velocity 105.0 cm/s LVOT Peak Gradient 4.4 mmHg LVOT Mean Velocity 65.4 cm/s LVOT Mean Gradient 2.0 mmHg LVOT Velocity Time Integral 21.3 cm LVOT Stroke Volume 48.3 cm AV Area Cont Eq vti 2.3 cm AV Area Cont Eq pk 1.5 cm MV Peak Velocity 88.2 cm/s MV Peak Gradient 3.1 mmHg MV Mean Velocity 61.3 cm/s MV Mean Gradient 2.0 mmHg Mitral E Point Velocity 79.0 cm/s Mitral A Point Velocity 90.8 cm/s Mitral E to A Ratio 0.9 MV PHT Velocity 90.9 cm/s MV Deceleration Holmes 680.0 cm/s MV Pressure Half Time 40.1 ms MV Area PHT 5.5 cm MV Deceleration Time 144.0 ms TR Peak Velocity 102.0 cm/s TR Peak Gradient 4.2 mmHg Right Atrial Pressure 5.0 mmHg Pulmonary Artery Systolic Pressu 9.2 mmHg Right Ventricular Systolic Press 9.2 mmHg PV Peak Velocity 112.0 cm/s PV Peak Gradient 5.0 mmHg PV Mean Velocity 73.0 cm/s PV Mean Gradient 3.0 mmHg PV Velocity Time Integral 21.0 cm LV E' Lateral Velocity 6.7 cm/s Mitral E to LV E' Lateral Ratio 11.7 LV E' Septal Velocity 5.9 cm/s Mitral E to LV E' Septal Ratio 13.3
[2016-06-04 23:03] LABS: PTT 33 SEC (25-37)
[2016-06-04 23:40] VITALS: BP 128/70
[2016-06-05 08:18] VITALS: BP 148/80
[2016-06-05 08:27] LABS: PTT 41 SEC (25-37)
--- NOTE | 2016-06-05 08:51 | PN- Housestaff ---
BRIGIDO SERRANO,MANA 06/05/16 0850: Subjective Follow-up For: DVT of left IJ Complaints: no complaints Subjective: Charlene is awake alert oriented resting comfortably in bed. She has no new acute complaints, last night was rather uneventful. She still complains of persistent swelling in both upper extremities. Review of Systems Constitutional: Denies: see HPI. Objective Last 24 Hrs of Vital Signs/I&O Vital Signs Date Time Temp Pulse Resp B/P Pulse O2 O2 Flow FiO2 Ox Delivery Rate 06/05 1557 97.7 100 18 130/82 94 06/05 1450 Room Air 06/05 0818 98.2 104 18 148/80 95 Room Air 06/04 2340 98.3 103 20 128/70 94 Room Air 06/04 2036 104 20 128/70 96 Room Air Intake & Output 06/05 1600 06/05 0800 06/05 0000 Intake Total 960 399.2 200 Output Total Balance 960 399.2 200 Intake, IV 199.2 Intake, Oral 960 200 200 Patient 126 lb Weight Physical Exam General Appearance: Alert, Oriented X3, Cooperative Other Physical Findings: Head: atraumatic, normal appearance Ears, Nose, Throat: normal pharynx Neck: normal inspection, fullness on left supraclavicular region Respiratory: normal breath sounds, chest non-tender, no respiratory distress Cardiovascular: tachycardia Gastrointestinal: normal bowel sounds, soft, tenderness (mild, diffuse) Extremities: normal inspection, 1+ LUE edema Skin: right chest port in place Neurologic/Psych: awake, alert, oriented x 3 Current Medications: Current Medications Sig/Beata Start time Last Medication Dose Route Stop Time Status Admin Acetaminophen 325 MG Q6P PRN 06/03 0215 AC PO Albuterol Sulfate 2 PUF Q4P PRN 06/05 1500 AC INH Bisacodyl 10 MG ONCE ONE 06/05 0915 DC IA 06/05 0916 Enoxaparin Sodium 60 MG Q12 06/05 1000 AC 06/05 SC 0953 Fentanyl Citrate 50 MCG Q3D 06/04 1715 AC 06/04 TOP 1817 Heparin Sodium 4,251 UNIT ONCE ONE 06/04 2345 DC 06/05 (Porcine) IV 06/04 2346 0234 Heparin Sodium 25,000 UNIT Q24H 06/04 1515 DC 06/04 (Porcine) IV 06/05 0900 1535 Sodium Chloride 500 ML Hydromorphone HCl 2 MG Q6P PRN 06/03 1200 AC 06/05 PO 0822 Ondansetron HCl 1 MG Q6P PRN 06/03 0230 AC 06/04 IV 0606 Oxycodone HCl 10 MG Q4P PRN 06/03 1400 AC 06/05 PO 1552 Polyethylene Glycol 17 GM DAILY 06/03 1144 AC 06/05 PO 0953 Senna 187 MG ONCE ONE 06/05 0915 DC PO 06/05 0916 Senna/Docusate Sodium 2 TAB DAILY 06/03 1144 AC 06/05 PO 0955 Last 24 Hrs of Lab/Al Results Last 24 Hrs of Labs/Mics: Laboratory Tests 06/05/16 0950: CBC w Diff NO MAN DIFF REQ, RBC 3.65 L, MCV 74.7 L, MCH 24.4 L, RDW 17.4 H, MPV 7.2 L, Gran % 80.0 H, Lymphocytes % 7.5 L, Monocytes % 7.8, Eosinophils % 4.4, Basophils % 0.3, Absolute Granulocytes 8.9 H, Absolute Lymphocytes 0.8 L, Absolute Monocytes 0.9 H, Absolute Eosinophils 0.5, Absolute Basophils 0, PUBS MCHC 32.6 L 06/05/16 0630: APTT 41 H 06/04/16 2226: APTT 33 Assessment/Plan Assessment: Charlene is a 50-year-old woman with medical history of asthma, alcohol use who unfortunately was recently diagnosed with 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 CTA of the chest did not reveal a pulmonary embolus, but confirmed progression of metastatic esophageal cancer. Due to the occlusion, the patient underwent successful placement of a single-lumen power port in the right chest the right subclavian vein. - Problems - Bilateral IJ occlusive DVTs Metastatic HER-2 positive esophageal cancer Recent pancreatitis - Plan - Continue to monitor on telemetry Daily CBC and BMP while monitoring for AV the knee has Continue Lovenox for full anticoagulation Problem List: 1. Metastatic cancer Pain Ratin Pain Location: And a Pain Goal: Pain 7 or less Pain Plan: And a Tomorrow's Labs & Rationales: See above EDWARD SERRANO,ROC 06/05/16 1346: Attending MD Review Statement Attending Statement Attending MD Statement: examined this patient, discuss w/resident/PA/DRIP MOLDER, agreed w/resident/PA/DRIP MOLDER, reviewed EMR data (avail), discussed with nursing, discussed with case mgmt, amended to note Attending Assessment/Plan: Patient seen and examined. Resting comfortably and not in acute distress. Blood pressure is better controlled on her heart rate has improved. There are no events overnight on telemetry. She complains this morning of constipation despite about regimen. On examination abdomen is soft and nontender with normal bowel sounds. Her left upper extremity swelling is unchanged. She does have some swelling of the right upper extremity now. The port site is intact with no erythema or hematoma.. It is mildly tender to touch. She is noted to have a small drop in hemoglobin yesterday following central line placement. In view of the mild downward trend of her hemoglobin, recent instrumentation and ongoing and cognition therapy, would recommend monitoring the patient overnight to ensure that her hemoglobin levels are steady prior to discharge. Patient is in agreement with this plan.
[2016-06-05 10:10] LABS: ABSOLUTE BASOPHIL COUNT 0 /CUMM (0.0-0.2); ABSOLUTE EOSINOPHIL COUNT 0.5 /CUMM (0.0-0.7); ABSOLUTE GRANULOCYTE CT 8.9 /CUMM (1.4-6.5); ABSOLUTE LYMPH COUNT 0.8 /CUMM (1.2-3.4); ABSOLUTE MONOCYTE COUNT 0.9 /CUMM (0.10-0.60); BASOPHIL % 0.3 % (0.0-2.0); EOSINOPHIL % 4.4 % (0-5); MEAN CORPUSCULAR HGB 24.4 PG (27.0-31.0); MEAN CORPUSCULAR HGB CONC 32.6 G/DL (33.0-37.0); MEAN CORPUSCULAR VOLUME 74.7 FL (81.0-99.0); MEAN PLATELET VOLUME 7.2 FL (7.4-10.4); PLATELET COUNT 329 /CUMM (130-400); RBC DISTRIBUTION WIDTH 17.4 % (11.5-14.5); RED BLOOD CELL CT 3.65 /CUMM (4.20-5.40); WHITE BLOOD CELL COUNT 11.1 /CUMM (4.8-10.8)
[2016-06-05 11:12] LABS: HEMATOCRIT 27.2 % (37-47)
--- NOTE | 2016-06-05 11:25 | PN- Cardiology ---
See Addendum Subjective Subjective: The patient reports that she is feeling mostly well. No chest pain. No chest pain. No palpitations. No lightheadedness. No diaphoresis. Objective Vital Signs and I&Os Vital Signs Date Time Temp Pulse Resp B/P Pulse O2 O2 Flow FiO2 Ox Delivery Rate 06/05 0818 98.2 104 18 148/80 95 Room Air 06/04 2340 98.3 103 20 128/70 94 Room Air 06/04 2036 104 20 128/70 96 Room Air 06/04 1600 98.4 102 18 126/70 94 Room Air 06/04 1257 98.9 125 17 144/70 97 Room Air 06/04 1245 97 Room Air Intake & Output 06/05 1600 06/05 0800 06/05 0000 06/04 1600 06/04 0800 06/04 0000 Intake Total 399.2 200 120 200 799.2 Output Total Balance 399.2 200 120 200 799.2 Intake, IV 199.2 200 199.2 Intake, Oral 200 200 120 600 Patient 126 lb 125 lb Weight Physical Exam: Gen: The patient is in no acute distress HEENT: Normal nose, ears, and oropharynx. Pupils equal bilaterally. Conjunctiva normal. Neck: Supple with no JVD, no masses, and no thyromegaly Lungs: Clear to auscultation with normal respiratory effort Heart: RRR, S1, S2, no murmurs. 1+ left upper extremity edema, 2+ pulses in the lower extremities bilaterally Abdomen: Soft, nontender, no masses. No hepatomegaly. No splenomegaly Extremities: No clubbing or cyanosis. Normal muscle strength in the upper and lower extremities Skin: Normal skin turgor with no skin ulcers or lesions noted. Current Medications: Current Medications Sig/Beata Start time Last Medication Dose Route Stop Time Status Admin Acetaminophen 325 MG Q6P PRN 06/03 0215 AC PO Bisacodyl 10 MG ONCE ONE 06/05 0915 DC IA 06/05 0916 Enoxaparin Sodium 60 MG Q12 06/05 1000 AC 06/05 SC 0953 Fentanyl Citrate 50 MCG Q3D 06/06 1200 DC TOP Fentanyl Citrate 50 MCG Q3D 06/04 1715 AC 06/04 TOP 1817 Heparin Sodium 4,251 UNIT ONCE ONE 06/04 2345 DC 06/05 (Porcine) IV 06/04 2346 0234 Heparin Sodium 25,000 UNIT Q24H 06/04 1515 DC 06/04 (Porcine) IV 06/05 0900 1535 Sodium Chloride 500 ML Heparin Sodium 25,000 UNIT Q24H 06/02 2200 DC 06/03 (Porcine) IV 06/05 09 2133 Sodium Chloride 500 ML Hydralazine HCl 10 MG .STK-MED ONE 06/04 1130 DC IV 06/04 1131 Hydromorphone HCl 2 MG Q6P PRN 06/03 1200 AC 06/05 PO 0822 Ondansetron HCl 1 MG Q6P PRN 06/03 0230 AC 06/04 IV 0606 Oxycodone HCl 10 MG Q4P PRN 06/03 1400 AC 06/05 PO 1013 Polyethylene Glycol 17 GM DAILY 06/03 1144 AC 06/05 PO 0953 Senna 187 MG ONCE ONE 06/05 0915 DC PO 06/05 0916 Senna/Docusate Sodium 2 TAB DAILY 06/03 1144 AC 06/05 PO 0955 Results Last 48 Hrs of Labs/Mics: Laboratory Tests 06/05/16 0950: CBC w Diff NO MAN DIFF REQ, RBC 3.65 L, MCV 74.7 L, MCH 24.4 L, RDW 17.4 H, MPV 7.2 L, Gran % 80.0 H, Lymphocytes % 7.5 L, Monocytes % 7.8, Eosinophils % 4.4, Basophils % 0.3, Absolute Granulocytes 8.9 H, Absolute Lymphocytes 0.8 L, Absolute Monocytes 0.9 H, Absolute Eosinophils 0.5, Absolute Basophils 0, PUBS MCHC 32.6 L 06/05/16 0630: APTT 41 H 06/04/16 2226: APTT 33 06/04/16 1430: APTT 25 06/04/16 0345: APTT 64 H 06/03/16 1910: APTT Cancelled 06/03/16 1900: PT 16.7 H, INR 1.60 H, APTT 53 H 06/03/16 1517: PT Cancelled, INR Cancelled 06/03/16 1128: APTT 52 H Recent Imaging Studies: Echocardiogram: Normal size left ventricle. Normal left ventricular wall thickness. Normal left ventricular ejection fraction visually estimated at > 55%. Mild mitral regurgitation. Mild tricuspid regurgitation. Assessment/Plan Assessment/Plan Assessment: 1. Esophageal cancer 2. Right upper extremity DVT 3. Hypertension, with elevated blood pressure this morning 4. Sinus tachycardia, improved 5. Left upper extremity DVT Plan: * Continue to monitor blood pressure. If she has further high readings, I recommend starting lisinopril 20 mg daily for blood pressure control. * Continue to monitor on telemetry for arrhythmias. * Continue Lovenox * Check with oncology about whether the patient may be changed from Lovenoz to Eliquis. Continue telemetry? Yes
--- NOTE | 2016-06-05 15:00 | PN- Oncology ---
Subjective Subjective: She continues to have pain in the abdomen. She feels that her arm may be a little more swollen. She had port placed yesterday. She had occluded bilateral IJ veins. Port was placed in the [facility] subclavian vein. Echocardiogram has been done and noted normal EF >55%. Review of Systems: Constitutional: Denies: chills, fever, weakness. Cardiovascular: Denies: chest pain, orthopena. Respiratory: Denies: short of breath. GI: Reports: abdominal pain, constipation. Denies: nausea. Musculoskeletal: Reports: back pain, joint pain. Neurological/Psychological: Reports: anxiety. Hematologic/Endocrine: Denies: bruising. All Other Systems: Reviewed and Negative Objective Vital Signs and I&Os Vital Signs Date Time Temp Pulse Resp B/P Pulse O2 O2 Flow FiO2 Ox Delivery Rate 06/05 818 98.2 104 18 148/80 95 Room Air 06/04 2340 98.3 103 20 128/70 94 Room Air 06/04 2036 104 20 128/70 96 Room Air 06/04 1600 98.4 102 18 126/70 94 Room Air Intake & Output 06/05 1600 06/05 0800 06/05 0000 06/04 1600 06/04 0800 06/04 0000 Intake Total 399.2 200 120 200 799.2 Output Total Balance 399.2 200 120 200 799.2 Intake, IV 199.2 200 199.2 Intake, Oral 200 200 120 600 Patient 57.153 kg 56.699 kg Weight Physical Exam: General Appearance: alert, awake, comfortable Head: atraumatic, normal appearance Ears, Nose, Throat: normal pharynx Neck: normal inspection, fullness on left supraclavicular region Respiratory: normal breath sounds, chest non-tender, no respiratory distress Cardiovascular: tachycardia Gastrointestinal: normal bowel sounds, soft, tenderness (mild, diffuse) Extremities: normal inspection, 1+ LUE edema Skin: right chest port in place Neurologic/Psych: awake, alert, oriented x 3 Current Medications: Current Medications Sig/Beata Start time Last Medication Dose Route Stop Time Status Admin Acetaminophen 325 MG Q6P PRN 06/03 0215 AC PO Albuterol Sulfate 2 PUF Q4P PRN 06/05 1500 UNVr INH Bisacodyl 10 MG ONCE ONE 06/05 0915 DC AK 06/05 0916 Enoxaparin Sodium 60 MG Q12 06/05 1000 AC 06/05 SC 0953 Fentanyl Citrate 50 MCG Q3D 06/06 1200 DC TOP Fentanyl Citrate 50 MCG Q3D 06/04 1715 AC 06/04 TOP 1817 Heparin Sodium 4,251 UNIT ONCE ONE 06/04 2345 DC 06/05 (Porcine) IV 06/04 2346 0234 Heparin Sodium 25,000 UNIT Q24H 06/04 1515 DC 06/04 (Porcine) IV 06/05 0900 1535 Sodium Chloride 500 ML Heparin Sodium 25,000 UNIT Q24H 06/02 2200 DC 06/03 (Porcine) IV 06/05 0900 2133 Sodium Chloride 500 ML Hydromorphone HCl 2 MG Q6P PRN 06/03 1200 AC 06/05 PO 0822 Ondansetron HCl 1 MG Q6P PRN 06/03 0230 AC 06/04 IV 0606 Oxycodone HCl 10 MG Q4P PRN 06/03 1400 AC 06/05 PO 1013 Polyethylene Glycol 17 GM DAILY 06/03 1144 AC 06/05 PO 0953 Senna 187 MG ONCE ONE 06/05 0915 DC PO 06/05 0916 Senna/Docusate Sodium 2 TAB DAILY 06/03 1144 AC 06/05 PO 0955 Assessment/Plan Assessment/Recommendations: Ms. Hernández is a 50-year-old female with asthma, alcohol usage, and recently diagnosed metastatic esophageal cancer who presents with new left IJ thrombus. Her underlying malignancy is likely increased her risk of thrombus along with possible extrinsic compression of the vessels. She has no PE on CTA. Imaging does not worsening of her underlying malignancy with new metastatic site. Given the burden of her thrombus and malignancy, LMWH may be a better option for the patient. NOAC have not been used as much as LMWH in the malignancy setting as of yet. It may be safer to continue with LMWH for now. Echocardiogram demonstrated EF >55%. She will follow up next week to discuss therapy. Recommendations: 1. Enoxaparin 1mg/kg BID 2. Aggressive bowel regimen for constipation 3. Follow up next week for discussion of therapy Please call [phone] with any questions or concerns. Problem List: 1. Metastatic cancer 2. Primary cancer of esophagus with metastasis to other site 3. Internal jugular (IJ) vein thromboembolism, acute
[2016-06-05 15:57] VITALS: BP 130/82
[2016-06-06 01:00] VITALS: BP 142/84
--- NOTE | 2016-06-06 08:12 | PN- Housestaff ---
NADIYA PENALOZA 06/06/16 0812: Subjective Follow-up For: DVT of left IJ Complaints: pain scale (0-10) Tele-Events Since Last Visit: Sinus rhythm Sinus tachycardia 92-106 No events Subjective: Patient was seen and examined this morning she is alert, awake and oriented to time place and person. No acute overnight events reported. Patient received Fleet Enema this morning and she had 1 bowel movement. Denies any nausea, vomiting, abdominal pain, change in bladder habits. She is able to tolerate her meals. Continues to complain swelling of left upper extremity. Denies any fever or chills or pain. Vitals were stable this morning. She is afebrile. Heart rate 100. Respiratory rate 18, blood pressure 142/84, saturating at 94% on room air. Review of Systems Constitutional: Denies: see HPI. Objective Last 24 Hrs of Vital Signs/I&O Vital Signs Date Time Temp Pulse Resp B/P Pulse O2 O2 Flow FiO2 Ox Delivery Rate 06/06 0100 98.1 102 18 142/84 97 Room Air 06/05 1557 97.7 100 18 130/82 94 06/05 1450 Room Air Intake & Output 06/06 1600 06/06 0800 06/06 0000 Intake Total 100 100 Output Total Balance 100 100 Intake, Oral 100 100 Patient 56.699 kg Weight Physical Exam General Appearance: Alert, Oriented X3, Cooperative, No Acute Distress Skin: No Rashes HEENT: Atraumatic, Mucous Membr. moist/pink Neck: Supple, No JVD Lymphatic: Cervical nl Cardiovascular: Regular Rate, Normal S1, Normal S2 Lungs: Normal Air Movement Abdomen: Normal Bowel Sounds, Soft, No Tenderness Extremities: No Clubbing, No Cyanosis, lue edema Vascular: Normal Pulses Current Medications: Current Medications Sig/Beata Start time Last Medication Dose Route Stop Time Status Admin Acetaminophen 325 MG Q6P PRN 06/03 0215 AC PO Albuterol Sulfate 2 PUF Q4P PRN 06/05 1500 AC INH Enoxaparin Sodium 60 MG Q12 06/05 1000 AC 06/06 SC 0958 Fentanyl Citrate 50 MCG Q3D 06/04 1715 AC 06/04 TOP 1817 Hydromorphone HCl 2 MG Q6P PRN 06/03 1200 AC 06/06 PO 0045 Ondansetron HCl 1 MG Q6P PRN 06/03 0230 AC 06/04 IV 0606 Oxycodone HCl 10 MG Q4P PRN 06/03 1400 AC 06/06 PO 0325 Polyethylene Glycol 17 GM DAILY 06/03 1144 AC 06/06 PO 0957 Senna/Docusate Sodium 2 TAB DAILY 06/03 1144 AC 06/06 PO 0958 Sodium Phosphate 1 UNIT ONCE ONE 06/06 0900 DC 06/06 OH 06/06 0901 0957 Last 24 Hrs of Lab/Al Results Last 24 Hrs of Labs/Mics: Laboratory Tests 06/06/16 0620: CBC w Diff NO MAN DIFF REQ, RBC 3.69 L, MCV 75.8 L, MCH 24.5 L, RDW 17.7 H, MPV 7.9, Gran % 79.9 H, Lymphocytes % 7.6 L, Monocytes % 8.1, Eosinophils % 4.2, Basophils % 0.2, Absolute Granulocytes 8.4 H, Absolute Lymphocytes 0.8 L, Absolute Monocytes 0.9 H, Absolute Eosinophils 0.4, Absolute Basophils 0, PUBS MCHC 32.3 L Assessment/Plan Assessment: Charlene is a 50-year-old woman with medical history of asthma, alcohol use who unfortunately was recently diagnosed with 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 CTA of the chest did not reveal a pulmonary embolus, but confirmed progression of metastatic esophageal cancer. Due to the occlusion, the patient underwent successful placement of a single-lumen power port in the right chest the right subclavian vein. - Problems - Bilateral IJ occlusive DVTs Metastatic HER-2 positive esophageal cancer Recent pancreatitis 1. Left upper extremity DVT in the setting of recently diagnosed metastatic esophageal cancer. -Vitals every shift -Patient on heparin drip, switched to oral anticoagulation. -Pain control with roxicodone, dilaudid, fentanyl patch. 2. Recurrent pancreatitis: -Patient was recently treated for pancreatitis early May. Continues to have mild abdominal discomfort and back pain. Lipase 1911 -She has been able to tolerate full liquid diet well, diet advanced to low fat regular diet, patient tolerating well. -Pain control with IV Dilaudid and Tylenol -IV Zofran for nausea. 3.Microcytic anemia: Indicis were consistent with iron deficiency. -No signs of overt GI bleed -We will maintain hemoglobin above 7 Full code Mild/ Severe Pathway Problem List: 1. Abdominal pain 2. Internal jugular (IJ) vein thromboembolism, acute Pain Ratin Pain Location: abd pain Pain Goal: Remain pain free Pain Plan: oxycodone Tomorrow's Labs & Rationales: none EDWARD SERRANO,ROC 06/06/16 0852: Attending MD Review Statement Attending Statement Attending MD Statement: examined this patient, discuss w/resident/PA/ICE CREAM VENDOR, agreed w/resident/PA/ICE CREAM VENDOR, reviewed EMR data (avail), discussed with nursing, amended to note Attending Assessment/Plan: Patient seen and examined. Reports having a very small bowel movement this morning after receiving a suppository.. She still feels uncomfortable and still feels like moving her bowels. Denies any abdominal pain. Denies nausea vomiting. Tolerating her meals. Her generalized pain is otherwise controlled by her current analgesic regimen. She continues to complain of swelling of her left upper extremity. On examination she has persistent swelling of her left upper extremity. Distal pulses weakly palpable. There is however no evidence of limb ischemia. There is no tenderness. Abdomen is soft and nontender with normal bowel sounds. It is not distended. Recommendations: -Administer Fleet Enema this morning. -If patient has an adequate bowel movement she may be discharged home today. -Blood pressure remains below 150 systolic. Her pain is likely contributing to her mildly elevated readings. We'll hold off starting patient on antihypertensive medications for now.
[2016-06-06 08:59] LABS: ABSOLUTE BASOPHIL COUNT 0 /CUMM (0.0-0.2); ABSOLUTE EOSINOPHIL COUNT 0.4 /CUMM (0.0-0.7); ABSOLUTE GRANULOCYTE CT 8.4 /CUMM (1.4-6.5); ABSOLUTE LYMPH COUNT 0.8 /CUMM (1.2-3.4); ABSOLUTE MONOCYTE COUNT 0.9 /CUMM (0.10-0.60); BASOPHIL % 0.2 % (0.0-2.0); EOSINOPHIL % 4.2 % (0-5); GRANULOCYTE % 79.9 % (42.2-75.2); MEAN CORPUSCULAR HGB 24.5 PG (27.0-31.0); MEAN CORPUSCULAR HGB CONC 32.3 G/DL (33.0-37.0); MEAN CORPUSCULAR VOLUME 75.8 FL (81.0-99.0); MEAN PLATELET VOLUME 7.9 FL (7.4-10.4); PLATELET COUNT 331 /CUMM (130-400); RBC DISTRIBUTION WIDTH 17.7 % (11.5-14.5); RED BLOOD CELL CT 3.69 /CUMM (4.20-5.40); WHITE BLOOD CELL COUNT 10.6 /CUMM (4.8-10.8)
--- NOTE | 2016-06-06 11:34 | RADIOLOGY REPORT ---
EXAMINATION: XR ABDOMEN CLINICAL INDICATION: Abdominal pain. COMPARISON: CT of abdomen pelvis from 05/08/2016 TECHNIQUE: Abdomen, AP view (KUB) FINDINGS: Small left pleural effusion and atelectasis at the left lung base. Bowel gas pattern is normal. There is no bowel obstruction or pneumoperitoneum. A moderate amount of stool is present within the colon. There is retained iodinated contrast material within the dilated left intrarenal collecting system (patient underwent contrast-enhanced CT exam of the chest on 06/02/2016). The visualized bones are intact. IMPRESSION: 1. No evidence of bowel obstruction. 2. Mild left hydronephrosis, likely secondary to extrinsic compression of the left ureter by a retroperitoneal metastatic tumor deposit. 3. Small left pleural effusion and left basilar atelectasis.
--- NOTE | 2016-06-06 14:23 | PN- Cardiology ---
Subjective Subjective: The patient complains of mild abdominal discomfort. No chest pain. No shortness of breath. She continues to complain of discomfort in the left upper extremity. No palpitations. Objective Vital Signs and I&Os Vital Signs Date Time Temp Pulse Resp B/P Pulse O2 O2 Flow FiO2 Ox Delivery Rate 06/06 08 Room Air 06/06 0100 98.1 102 18 142/84 97 Room Air 06/05 1557 97.7 100 18 130/82 94 06/05 1450 Room Air Intake & Output 06/06 1600 06/06 0806/06 0000 06/05 1600 06/05 0800 06/05 0000 Intake Total 100 100 960 399.2 200 Output Total Balance 100 100 960 399.2 200 Intake, IV 199.2 Intake, Oral 100 100 960 200 200 Patient 125 lb 126 lb Weight Physical Exam: Gen: The patient is in no acute distress HEENT: Normal nose, ears, and oropharynx. Pupils equal bilaterally. Conjunctiva normal. Neck: Supple with no JVD, no masses, and no thyromegaly Lungs: Clear to auscultation with normal respiratory effort Heart: RRR, S1, S2, no murmurs. 1+ left upper extremity edema, 2+ pulses in the lower extremities bilaterally Abdomen: Soft, nontender, no masses. No hepatomegaly. No splenomegaly Extremities: No clubbing or cyanosis. Normal muscle strength in the upper and lower extremities Skin: Normal skin turgor with no skin ulcers or lesions noted. Current Medications: Current Medications Sig/Beata Start time Last Medication Dose Route Stop Time Status Admin Acetaminophen 325 MG Q6P PRN 06/03 0215 AC PO Albuterol Sulfate 2 PUF Q4P PRN 06/05 1500 AC INH Enoxaparin Sodium 60 MG Q12 06/05 1000 AC 06/06 SC 0958 Fentanyl Citrate 50 MCG Q3D 06/04 1715 AC 06/04 TOP 1817 Hydromorphone HCl 2 MG Q6P PRN 06/03 1200 AC 06/06 PO 0045 Methylnaltrexone 12 MG ONCE ONE 06/06 1045 DC 06/06 [place] 06/06 1046 1218 Ondansetron HCl 1 MG Q6P PRN 06/03 0230 AC 06/04 IV 0606 Oxycodone HCl 10 MG Q4P PRN 06/03 1400 AC 06/06 PO 0325 Polyethylene Glycol 17 GM DAILY 06/03 1144 AC 06/06 PO 0957 Senna/Docusate Sodium 2 TAB DAILY 06/03 1144 AC 06/06 PO 0958 Sodium Phosphate 1 UNIT ONCE ONE 06/06 0900 DC 06/06 OR 06/06 0901 0957 Results Last 48 Hrs of Labs/Mics: Laboratory Tests 06/06/16 0620: CBC w Diff NO MAN DIFF REQ, RBC 3.69 L, MCV 75.8 L, MCH 24.5 L, RDW 17.7 H, MPV 7.9, Gran % 79.9 H, Lymphocytes % 7.6 L, Monocytes % 8.1, Eosinophils % 4.2, Basophils % 0.2, Absolute Granulocytes 8.4 H, Absolute Lymphocytes 0.8 L, Absolute Monocytes 0.9 H, Absolute Eosinophils 0.4, Absolute Basophils 0, PUBS MCHC 32.3 L 06/05/16 0950: CBC w Diff NO MAN DIFF REQ, RBC 3.65 L, MCV 74.7 L, MCH 24.4 L, RDW 17.4 H, MPV 7.2 L, Gran % 80.0 H, Lymphocytes % 7.5 L, Monocytes % 7.8, Eosinophils % 4.4, Basophils % 0.3, Absolute Granulocytes 8.9 H, Absolute Lymphocytes 0.8 L, Absolute Monocytes 0.9 H, Absolute Eosinophils 0.5, Absolute Basophils 0, PUBS MCHC 32.6 L 06/05/16 0630: APTT 41 H 06/04/16 2226: APTT 33 06/04/16 1430: APTT 25 Recent Imaging Studies: 1. No evidence of bowel obstruction. 2. Mild left hydronephrosis, likely secondary to extrinsic compression of the left ureter by a retroperitoneal metastatic tumor deposit. 3. Small left pleural effusion and left basilar atelectasis. Assessment/Plan Assessment/Plan Assessment: 1. Esophageal cancer 2. Left upper extremity DVT 3. Hypertension, with elevated blood pressure this morning 4. Sinus tachycardia, improved 5. Bilateral internal ventricular vein thrombus Plan: * Agree with Lovenox 1 mg/kg twice a day * Continue other medications. Continue telemetry? No
[2016-06-06 15:30] VITALS: BP 132/78
[2016-06-06 19:50] VITALS: BP 162/88
[2016-06-07 00:19] VITALS: BP 162/88
[2016-06-07 08:18] VITALS: BP 150/81
--- NOTE | 2016-06-07 12:09 | PN- Att Addend ---
Attending Addendum Attending Brief Note Patient seen and examined. Discharge was held yesterday due to persistent constipation despite multiple bowel regimens. She was he was started on Relistor yesterday. She still without a bowel movement this morning and complains of abdominal discomfort. She reports generalized pain is controlled on her current pain regimen. Her upper extremity swelling is slightly improved today with elevation. Vital Signs Date Time Temp Pulse Resp B/P Pulse O2 O2 Flow FiO2 Ox Delivery Rate 06/07 0818 98.1 100 20 150/81 96 Room Air 06/07 0019 97.5 109 20 162/88 97 06/06 1950 97.6 96 20 162/88 98 Room Air 06/06 1530 97.5 106 20 132/78 97 Room Air Gen. appearance: Well-developed. Heart: S1-S2 regular Lungs: Good entry bilaterally, clear to auscultation Abdomen: Nondistended, soft, mild diffuse tenderness with no rebound or guarding. Bowel sounds normal. Extremities: Lower extremities no pedal edema. Swelling of left upper extremity. Distal pulses palpable. No evidence of ischemia. Abdominal x-ray done to rule out obstruction yesterday on account of her abdominal discomfort showed no evidence of intestinal obstruction. Incidentally noted is mild left hydronephrosis due to extrinsic compression of the left ureter from a retroperitoneal tumor deposit. This is new from imaging last month. Her renal function today remains stable. Problems: 1. Severe opioid-induced constipation. 2. Esophageal cancer with diffuse metastasis. 3. New mild left-sided hydronephrosis due to obstruction from metastatic tumor. 4. Diffuse thrombotic disease. Plan: -Patient is currently on MiraLAX and Senokot. She received a Dulcolax suppository yesterday. She also received Relistor yesterday. She received milk of magnesia this morning. Recommend beginning patient on lactulose every 8 hours until adequate bowel movement occurs. If persistent may consider GI consultation for disimpaction via colonoscopy. -Continue pain management. She is currently on fentanyl patch, oxycodone and Dilaudid. -She has new hydronephrosis secondary to obstruction from tumor. Renal function is currently within normal limits. Would recommend follow-up with the urology service prior to discharge. -Continue DVT prophylaxis with Lovenox.
[2016-06-07 17:25] VITALS: BP 152/80
[2016-06-07 23:40] VITALS: BP 161/100
--- NOTE | 2016-06-08 08:48 | PN- Housestaff ---
CLARITA SERRANO,[facility] 06/08/16 0848: Subjective Follow-up For: DVT of left IJ Esophageal cancer status post metastasis Nausea Subjective: Patient seen and examined this morning. She was complaining of feeling nauseous , having tremendous amount of pain in her back, feeling miserable, she has been afebrile, vitals stable, he had 2 bowel movements, as per patient very painful. Review of Systems Constitutional: Reports: see HPI. Objective Last 24 Hrs of Vital Signs/I&O Vital Signs Date Time Temp Pulse Resp B/P Pulse O2 O2 Flow FiO2 Ox Delivery Rate 06/08 0855 97.7 100 20 160/90 98 Room Air 06/07 2340 97.3 105 20 161/100 96 Room Air 06/07 1725 97.5 101 20 152/80 98 Room Air Intake & Output 06/08 1600 06/08 0800 06/08 0000 Intake Total 600 Output Total Balance 600 Intake, Oral 600 Number 1 Bowel Movements Physical Exam General Appearance: Alert, Oriented X3, Mild Distress, patient not comfortable to be examined secondary to her nausea Assessment/Plan Assessment: Charlene is a 50-year-old woman with medical history of asthma, alcohol use who unfortunately was recently diagnosed with 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 CTA of the chest did not reveal a pulmonary embolus, but confirmed progression of metastatic esophageal cancer. Due to the occlusion, the patient underwent successful placement of a single-lumen power port in the right chest the right subclavian vein. - Problems - Bilateral IJ occlusive DVTs Metastatic HER-2 positive esophageal cancer Recent pancreatitis Left upper extremity DVT in the setting of recently diagnosed metastatic esophageal cancer. -Vitals every shift -s/p heparin drip, switched to oral anticoagulation. -Pain control with roxicodone, dilaudid, fentanyl patch. Left-sided hydronephrosis: Probably secondary to invasive tumor growth, will get urology evaluation. Recurrent pancreatitis: -Patient was recently treated for pancreatitis early May. Continues to have mild abdominal discomfort and back pain. Lipase 1911 -She has been able to tolerate full liquid diet well, diet advanced to low fat regular diet, patient tolerating well. -Pain control with IV Dilaudid and Tylenol -IV Zofran for nausea when necessary along with by mouth Zofran around-the- clock. Microcytic anemia: Indicis were consistent with iron deficiency. -No signs of overt GI bleed -We will maintain hemoglobin above 7 Full code Mild/ Severe Pathway Problem List: 1. Internal jugular (IJ) vein thromboembolism, acute 2. Metastatic cancer 3. Back pain 4. Abdominal pain Pain Ratin Pain Location: Back Pain Goal: Remain pain free Pain Plan: Oxycodone Dilaudid And a patch Tomorrow's Labs & Rationales: none ROC LEON MD 06/08/16 1130: Attending MD Review Statement Attending Statement Attending MD Statement: examined this patient, discuss w/resident/PA/BUSINESS PLANNER, agreed w/resident/PA/BUSINESS PLANNER, reviewed EMR data (avail), discussed with nursing, discussed with case mgmt, amended to note Attending Assessment/Plan: Patient had a bowel movement yesterday and again today after the extensive bowel regimen ordered for her. She however today continues to complain of generalized pain stating that her pain control is not optimal. There is noted that to the weekend she has not received the maximum doses of analgesics as ordered. Nursing staff reported that she has been receiving her pain medications only when requested. Patient looks visibly depressed. She is anxious about her overall prognosis. I did have an extensive conversation with her. I did educate her about requesting her pain medications regularly in order not to allow prolonged time periods without medications. Recommendations: -We have discussed with the patient and nursing staff. She will receive her pain medications more frequently. If pain control is still suboptimal despite adequate dosing consider radiation oncology consultation for palliative radiation therapy. Particularly to the lower back. -Continue current bowel regimen. -I with evaluation by the urology service. Her renal function is stable
[2016-06-08 08:55] VITALS: BP 160/90
--- NOTE | 2016-06-08 10:58 | PN- Oncology ---
Subjective Subjective: Ms. Hernández continues to have pain in her abdomen and back. Pain medication is helping for a few hours. She has pain with walking. She has had some nausea. She reports moving her bowels this morning. She denies any fever or chills. Review of Systems: Constitutional: Denies: chills, fever, weakness. Cardiovascular: Denies: chest pain, orthopena. Respiratory: Denies: short of breath. GI: Reports: abdominal pain, constipation, nausea. Musculoskeletal: Reports: back pain, joint pain. Neurological/Psychological: Reports: anxiety. Hematologic/Endocrine: Denies: bruising. All Other Systems: Reviewed and Negative Objective Vital Signs and I&Os Vital Signs Date Time Temp Pulse Resp B/P Pulse O2 O2 Flow FiO2 Ox Delivery Rate 06/08 0855 97.7 100 20 160/90 98 Room Air 06/07 2340 97.3 105 20 161/100 96 Room Air 06/07 1725 97.5 101 20 152/80 98 Room Air Intake & Output 06/08 1600 06/08 0800 06/08 0000 06/07 1600 06/07 0800 06/07 0000 Intake Total 600 400 50 440 Output Total Balance 600 400 50 440 Intake, IV 0 0 Intake, Oral 600 400 50 440 Number 1 1 0 Bowel Movements Physical Exam: General Appearance: alert, awake, comfortable Head: atraumatic, normal appearance Ears, Nose, Throat: normal pharynx Neck: normal inspection, fullness on left supraclavicular region Respiratory: normal breath sounds, chest non-tender, no respiratory distress Cardiovascular: tachycardia Gastrointestinal: normal bowel sounds, soft, tenderness (mild, diffuse) Extremities: normal inspection Skin: right chest port in place Neurologic/Psych: awake, alert, oriented x 3 Current Medications: Current Medications Sig/Beata Start time Last Medication Dose Route Stop Time Status Admin Acetaminophen 325 MG Q6P PRN 06/03 0215 AC PO Albuterol Sulfate 2 PUF Q4P PRN 06/05 1500 AC INH Alprazolam 0.25 MG TID 06/08 1000 AC 06/08 PO 06/15 0959 1006 Enoxaparin Sodium 60 MG Q12 06/05 1000 AC 06/08 SC 1006 Fentanyl Citrate 50 MCG Q3D 06/04 1715 AC 06/07 TOP 1726 Hydromorphone HCl 2 MG Q6P PRN 06/03 1200 AC 06/08 PO 0638 Lactulose 20 GM TID 06/07 1030 AC 06/07 PO 2131 Ondansetron HCl 4 MG Q4 06/08 1000 AC 06/08 PO 1006 Ondansetron HCl 4 MG .STK-MED ONE 06/08 0204 DC IM 06/08 0205 Ondansetron HCl 4 MG .STK-MED ONE 06/07 1651 DC IM 06/07 1652 Ondansetron HCl 1 MG Q6P PRN 06/03 0230 AC 06/08 IV 0207 Oxycodone HCl 10 MG Q4P PRN 06/03 1400 AC 06/08 PO 0857 Patient Medication 1 ED .STK-MED ONE 06/07 1332 DC Teaching ED 06/07 1333 Polyethylene Glycol 17 GM DAILY 06/03 1144 AC 06/07 PO 1006 Senna/Docusate Sodium 2 TAB DAILY 06/03 1144 AC 06/08 PO 1005 Assessment/Plan Assessment/Recommendations: Ms. Hernández is a 50-year-old female with asthma, alcohol usage, and recently diagnosed metastatic esophageal cancer who presents with new left IJ thrombus. Her underlying malignancy is likely increased her risk of thrombus along with possible extrinsic compression of the vessels. She has no PE on CTA. Imaging does not worsening of her underlying malignancy with new metastatic site. She is now on enoxaparin and tolerating it well. She continues to have pain as her main complaints. She is on fentanyl 50 mcg patch, oxycodone 10 mg every 4 hours prn, hydromorphone 2 mg every 6 hours prn. She is getting senna, docusate, Miralax, and lactulose for her bowel regimen. She is tentatively scheduled to see me on 06/11 for follow up to discuss therapy and start the week after. Recommendations: 1. Continue enoxaparin 1mg/kg BID 2. Aggressive bowel regimen for constipation 3. Consider increasing fentanyl patch to 75 mcg if she continues to have severe pain 4. Continue breakthrough pain medication with hydromorphone 5. Follow up on Tuesday for discussion of therapy Please call [phone] with any questions or concerns. Problem List: 1. Metastatic cancer 2. Retroperitoneal lymphadenopathy 3. Pancreatitis 4. Back pain 5. Internal jugular (IJ) vein thromboembolism, acute 6. Esophageal cancer
[2016-06-08 13:13] VITALS: BP 148/82
[2016-06-08 16:08] VITALS: BP 150/84
[2016-06-09 00:38] VITALS: BP 150/90
[2016-06-09 08:34] VITALS: BP 148/84
[2016-06-09] MEDS ORDERED: OXYCODONE HCL5 M1 PO ×2 (09:28→10:01)
[2016-06-09] MEDS ORDERED: OXYCONTIN10 M1 PO (09:28)
--- NOTE | 2016-06-09 09:56 | PN- Oncology ---
Subjective Subjective: Pain is a little better but persistent. Pain is mostly in her back and abdomen. She has decreased appetite because of this. She moved her bowels yesterday. She has some nausea. She denies any fever or chills. Review of Systems: Constitutional: Denies: chills, fever, weakness. Cardiovascular: Denies: chest pain, orthopena. Respiratory: Denies: short of breath. GI: Reports: abdominal pain, constipation, nausea. Musculoskeletal: Reports: back pain, joint pain. Neurological/Psychological: Reports: anxiety. Hematologic/Endocrine: Denies: bruising. All Other Systems: Reviewed and Negative Objective Vital Signs and I&Os Vital Signs Date Time Temp Pulse Resp B/P Pulse O2 O2 Flow FiO2 Ox Delivery Rate 06/09 0834 98.1 104 20 148/84 97 Room Air 06/09 0038 98.1 111 20 150/90 96 Room Air 06/08 1608 97.4 110 18 150/84 96 06/08 1313 97.9 113 18 148/82 97 Room Air Intake & Output 06/09 1600 06/09 0800 06/09 0000 06/08 1600 06/08 0800 06/08 0000 Intake Total 300 450 300 600 Output Total Balance 300 450 300 600 Intake, IV 0 Intake, Oral 300 450 300 600 Number 0 1 Bowel Movements Physical Exam: General Appearance: alert, awake, comfortable Head: atraumatic, normal appearance Ears, Nose, Throat: normal pharynx Neck: normal inspection, fullness on left supraclavicular region Respiratory: normal breath sounds, chest non-tender, no respiratory distress Cardiovascular: tachycardia Gastrointestinal: normal bowel sounds, soft, tenderness (mild, diffuse) Extremities: normal inspection Skin: right chest port in place Neurologic/Psych: awake, alert, oriented x 3 Current Medications: Current Medications Sig/Beata Start time Last Medication Dose Route Stop Time Status Admin Acetaminophen 325 MG Q6P PRN 06/03 0215 AC PO Albuterol Sulfate 2 PUF Q4P PRN 06/05 1500 AC INH Alprazolam 0.25 MG TID 06/08 1000 AC 06/09 PO 06/15 0959 0933 Enoxaparin Sodium 60 MG Q12 06/05 1000 AC 06/09 SC 0933 Fentanyl Citrate 50 MCG Q3D 06/04 1715 06/07 [facility] 1726 Hydromorphone HCl 2 MG Q6P PRN 06/03 1200 DC 06/08 PO 1308 Lactulose 20 GM TID 06/07 1030 AC 06/09 PO 0932 Ondansetron HCl 4 MG Q4 06/08 1000 AC 06/09 PO 0933 Ondansetron HCl 1 MG Q6P PRN 06/03 0230 AC 06/08 IV 0207 Oxycodone HCl 10 MG BID 06/08 2200 AC 06/09 PO 0933 Oxycodone HCl 15 MG Q4P PRN 06/08 1645 AC 06/09 PO 0636 Oxycodone HCl 10 MG Q4P PRN 06/03 1400 DC 06/08 PO 1513 Polyethylene Glycol 17 GM DAILY 06/03 1144 AC 06/09 PO 0935 Senna/Docusate Sodium 2 TAB DAILY 06/03 1144 AC 06/09 PO 0933 Assessment/Plan Assessment/Recommendations: Ms. Hernández is a 50-year-old female with asthma, alcohol usage, and recently diagnosed metastatic esophageal cancer who presents with new left IJ thrombus. Her underlying malignancy is likely increased her risk of thrombus along with possible extrinsic compression of the vessels. She has no PE on CTA. Imaging does not worsening of her underlying malignancy with new metastatic site. She is now on enoxaparin and tolerating it well. Pain is persistent. She has had MRI of the lumbar done which was negative as an outpatient. It may be reasonable to obtain MRI of the cervical/thoracic to complete evaluation. Given the persistent symptoms, she may need repeat CT of the abdomen/pelvis and lipase evaluation. She is getting senna, docusate, Miralax, and lactulose for her bowel regimen. She is tentatively scheduled to see me on 06/11 for follow up to discuss therapy and start the week after. Recommendations: 1. Continue enoxaparin 1mg/kg BID 2. Aggressive bowel regimen for constipation 3. Increasing fentanyl patch to 75 mcg 4. Continue breakthrough pain medication 5. MRI of cervical/lumbar (CT spine if she cannot tolerate it) 6. CT abdomen/pelvis with contrast 7. Follow up on Tuesday for discussion of therapy Please call [phone] with any questions or concerns. Problem List: 1. Abdominal pain 2. Back pain 3. Primary cancer of esophagus with metastasis to other site
--- NOTE | 2016-06-09 10:35 | PN- Housestaff ---
CLARITA SERRANO,[facility] 06/09/16 1035: Subjective Follow-up For: DVT of left IJ Esophageal cancer status post metastasis Nausea Subjective: Patient seen and examined this morning. She was complaining of feeling nauseous , having tremendous amount of pain in her back, continues feeling miserable, she has been afebrile, vitals stable. Review of Systems Constitutional: Reports: see HPI. 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 CTA of the chest did not reveal a pulmonary embolus, but confirmed progression of metastatic esophageal cancer. Due to the occlusion, the patient underwent successful placement of a single-lumen power port in the right chest the right subclavian vein. - Problems - Bilateral IJ occlusive DVTs Metastatic HER-2 positive esophageal cancer Recent pancreatitis Left upper extremity DVT in the setting of recently diagnosed metastatic esophageal cancer. -Vitals every shift -s/p heparin drip, switched to oral anticoagulation. -Pain control with roxicodone, dilaudid, fentanyl patch. -patient to be discharge today, will f/u with oncologist for further treatment options discussion Left-sided hydronephrosis: Probably secondary to invasive tumor growth. Recurrent pancreatitis: -Patient was recently treated for pancreatitis early May. Continues to have mild abdominal discomfort and back pain. Lipase 1911 -She has been able to tolerate full liquid diet well, diet advanced to low fat regular diet, patient tolerating well. -Pain control with IV Dilaudid and Tylenol -IV Zofran for nausea when necessary along with by mouth Zofran around-the- clock. Microcytic anemia: Indicis were consistent with iron deficiency. -No signs of overt GI bleed -We will maintain hemoglobin above 7 Full code Mild/ Severe Pathway Problem List: 1. Metastatic cancer 2. Internal jugular (IJ) vein thromboembolism, acute Pain Ratin Pain Location: back Pain Goal: Remain pain free Pain Plan: roxicodone, oxycontin, fentanyl patch Tomorrow's Labs & Rationales: none to be d/c HEATHER LEON MDAMANDAJACINTO 06/09/16 1434: Attending MD Review Statement Attending Statement Attending MD Statement: examined this patient, discuss w/resident/PA/BUSINESS SERVICES OFFICER, agreed w/resident/PA/BUSINESS SERVICES OFFICER, reviewed EMR data (avail), discussed with nursing, discussed with case mgmt, amended to note Attending Assessment/Plan: Seen and examined. She was able to tolerate dinner and breakfast this morning. She continues to report nausea but states it is more tolerable. She continues to report generalized pain but admits control with her current regimen. Oncology follow-up appreciated. At present patient's pain appears to be controlled on the current pain regimen. She is medically stable to be discharged today and will follow-up with the oncology service as an outpatient for chemotherapy and further diagnostic workup as indicated. Recommend monitoring of serum chemistry by the oncology service as an outpatient and referral to urology service if he develops YURIDIA from her ureteral obstruction. She is being discharged on OxyContin/oxycodone and fentanyl patch for pain control. She's been provided with prescription for about regimen. She is also to continue on Lovenox subacute for anticoagulation therapy.
[2016-06-09] MEDS ORDERED: LOVENOX60 MG/0.1 SC (10:44)
== END 2016-06-09 12:20 | DRG 197 ==
LOC: ERH 20:36 → ERHI 23:08 → 2NB 23:08 → 2NA 23:08 → CRI 06-04 12:17 → 1NO 06-04 20:15 → 2NB 06-06 19:38
PROVIDERS: Emergency Medicine; Internal Medicine; Internal Medicine Interventional Cardiology; Student in an Organized Health Care Education/Training Program; ADMIT Internal Medicine
PROC: 05H533Z Insertion of Infusion Device into Right Subclavian Vein, Percutaneous Approach (ICD-10-PCS; principal; 2016-06-04)
PROC: B516ZZA Fluoroscopy of Right Subclavian Vein, Guidance (ICD-10-PCS; principal; 2016-06-04)
DX: I82.C13 Acute embolism and thrombosis of internal jugular vein, bilateral (principal); K85.90 Acute pancreatitis without necrosis or infection, unspecified; I10 Essential (primary) hypertension; C15.5 Malignant neoplasm of lower third of esophagus; D50.9 Iron deficiency anemia, unspecified; C77.9 Secondary and unspecified malignant neoplasm of lymph node, unspecified; F32.9 Major depressive disorder, single episode, unspecified; F10.10 Alcohol abuse, uncomplicated; N13.30 Unspecified hydronephrosis; R59.1 Generalized enlarged lymph nodes; K59.03 Drug induced constipation; T40.605A Adverse effect of unspecified narcotics, initial encounter; J45.909 Unspecified asthma, uncomplicated; E11.9 Type 2 diabetes mellitus without complications
CPT/HCPCS: 04007; 1NP; 2NAP; 2NBP; ERO; 36415; 74000; 77001; 82436; 93005; 93010; 93306; 96374; C1769; C1788; J0360; J0690; J1170; J1642; J1644; J1650; J2250; J2405; J3010; J3101; J3490; J7120

== ENCOUNTER 2016-06-15 05:09 | Emergency (ER) | payer OTHER ==
[~2016-06-15] VITALS: Ht 149.9 cm; Wt 56.2 kg
[~2016-06-15 05:09] MED LIST changes: +FENTANYL1 EAC3 TOP; +LOVENOX40 MG/0.1 SC; +LOVENOX60 MG/0.1 SC; +MIRALAX119 GM PO; +OXYCODONE HCL5 M1 PO; +OXYCONTIN10 M1 PO; +SENNA PLUS TAB1 EACH PO
[2016-06-15] MEDS ORDERED: ZOFRAN ODT4 M1 SL (05:55)
--- NOTE | 2016-06-15 05:55 | ED GENERAL ADULT ---
History of Present Illness General Chief Complaint: General Adult Stated Complaint: THROAT CANCER PAINFUL TO SWALLOW/PAIN ALL OVER Source: patient, family, old records Exam Limitations: no limitations Vital Signs & Intake/Output Vital Signs & Intake/Output Vital Signs Date Time Temp Pulse Resp B/P Pulse O2 O2 Flow FiO2 Ox Delivery Rate 06/15 0534 96.5 101 18 112/76 96 Room Air Allergies Coded Allergies: NO KNOWN ALLERGIES (06/07/16) Reconcile Medications Albuterol Sulfate (Proair Hfa) 90 MCG HFA.AER.AD 2 PUF INH Q4-6 PRN PRN ASTHMA (Reported) Enoxaparin Sodium (Lovenox) 60 MG/0.6 ML SYRINGE 0.6 ML SC BID anticoagulation. . Fentanyl Citrate (Duragesic) 50 MCG/HOUR PATCH.TD72 1 PAT TOP Q3D pain Ferrous Sulfate 325 MG (65 MG IRON) TABLET.DR 1 MG PO TID anemia Folic Acid 1 MG TABLET 1 MG PO DAILY anemia Multivitamin (One Daily Multivitamin) 1 EACH TABLET 1 TAB PO DAILY anemia Ondansetron (Zofran Odt) 4 MG TAB.RAPDIS 1 TAB SL TID PRN NAUSEA Oxycodone HCl (Oxycontin) 10 MG TAB.ER.12H 1 TAB PO BID SEVERE PAIN Oxycodone HCl 5 MG TABLET 3 TAB PO Q4P PRN severe pain Polyethylene Glycol 3350 (Miralax) 17 GRAM/DOSE POWDER 17 GM PO DAILY CONSTIPATION Sennosides/Docusate Sodium (Senna Plus Tablet) 8.6 MG-50 MG TABLET 2 TAB PO DAILY CONSTIPATION Thiamine HCl (Vitamin B-1) 100 MG TABLET 1 MG PO DAILY anemia Triage Note: PT TO TRIAGE C/O GENERALIZED BODY PAIN. PT STATES SHE IS SUPPOSED TO START CHEMOTHERAPY TOMORROW BUT COULD NOT DEAL WITH THE PAIN ANY LONGER. PAIN HAS BEEN HAPPENING FOR A COUPLE DAYS, PT STATES SHE CANNOT GET OFF OF THE COUCH DUE TO PAIN. PT ALSO C/O NAUSEA WITH SMALL AMOUNT OF VOMITING. Triage Nurses Notes Reviewed? yes HPI: Patient has metastatic esophageal cancer. She is due to start chemotherapy tomorrow. Patient had a recent admission for a DVT to her left upper extremity. Patient is on chronic pain medication. Patient was able to take a dose of her pain medication at 7:00 last night however she has been nauseous since then so has been unable to swallow her pain pills. Patient is able to tolerate liquids so it is more of a problem with nausea and not difficulty swallowing. She has diffuse body aches which are constant. The pain is only transiently reduced with narcotic pain medications and it comes back. There are no aggravating factors. There are no fevers or chills. There has been no vomiting. There is no diarrhea. Past History Travel History Traveled to [place] past 21 day No Medical History Any Pertinent Medical History? 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 No Review of Systems Review of Systems Constitutional: Reports: no symptoms. EENTM: Reports: no symptoms. Respiratory: Reports: no symptoms. Cardiovascular: Reports: no symptoms. GI: Reports: see HPI, nausea. Genitourinary: Reports: no symptoms. Musculoskeletal: Reports: see HPI. Skin: Reports: no symptoms. Neurological/Psychological: Reports: no symptoms. Hematologic/Endocrine: Reports: no symptoms. Immunologic/Allergic: Reports: no symptoms. All Other Systems: Reviewed and Negative Physical Exam Physical Exam General Appearance: well developed/nourished, alert, awake, moderate distress Head: atraumatic, normal appearance Eyes: Bilateral: PERRL, EOMI. Ears, Nose, Throat: normal pharynx Neck: normal inspection, supple Respiratory: normal breath sounds, chest non-tender, no respiratory distress, lungs clear Cardiovascular: regular rate/rhythm, normal peripheral pulses Gastrointestinal: normal bowel sounds, soft, non-tender Extremities: normal inspection, normal capillary refill, normal range of motion, no edema Neurologic/Psych: no motor/sensory deficits, awake, alert, oriented x 3, normal gait, normal mood/affect Core Measures ACS in differential dx? No CVA/TIA Diagnosis: No Severe Sepsis Present: No Septic Shock Present: No Progress Differential Diagnoses I considered the following diagnoses in my evaluation of the patient: [Acute exacerbation of chronic pain, nausea] Plan of Care: Current Medications Sig/Beata Start time Last Medication Dose Stop Time Status Admin Hydromorphone HCl 2 MG ONCE ONE 06/15 599 UNVr (Dilaudid) 06/15 600 Ondansetron HCl 4 MG ONCE ONE 06/15 599 UNVr (Zofran) 06/15 600 Initial ED EKG: none Comments: Patient feeling better and wants to go home. Departure Departure Disposition: HOME OR SELF CARE Condition: Stable Clinical Impression Primary Impression: Nausea Referrals: ALEKSANDRA SERRANO,KRISTIAN (PCP/Family) Additional Instructions: follow up at your appointment today return if symptoms worsen or for any concerns Departure Forms: Customer Survey General Discharge Information Prescriptions: Current Visit Scripts Ondansetron (Zofran Odt) 1 TAB SL TID PRN NAUSEA #10 TAB Critical Care Note Critical Care Note Critical Care Time: non-applicable
[2016-06-15 06:37] VITALS: BP 115/78
== END 2016-06-15 06:39 ==
LOC: ERH 05:09
DX: R11.0 Nausea (principal)
CPT/HCPCS: 96372; J3101

== ENCOUNTER 2016-06-16 09:48 | Inpatient (IN) | payer OTHER ==
[~2016-06-16] VITALS: Ht 149.9 cm; Wt 56.7 kg
[~2016-06-16 09:48] MED LIST changes: +ZOFRAN ODT4 M1 SL
--- NOTE | 2016-06-16 10:02 | ED GENERAL ADULT ---
History of Present Illness General Chief Complaint: General Adult Stated Complaint: SENT BY DR CISNEROS EVBETTY OF LOW BP Source: patient, old records Exam Limitations: clinical condition Vital Signs & Intake/Output Vital Signs & Intake/Output Vital Signs Date Time Temp Pulse Resp B/P Pulse O2 O2 Flow FiO2 Ox Delivery Rate 06/16 1205 98.1 106 18 109/59 100 Room Air 06/16 0954 97.6 105 20 90/62 94 Room Air Allergies Coded Allergies: NO KNOWN ALLERGIES (06/07/16) Reconcile Medications Albuterol Sulfate (Proair Hfa) 90 MCG HFA.AER.AD 2 PUF INH Q4-6 PRN PRN ASTHMA (Reported) Enoxaparin Sodium (Lovenox) 60 MG/0.6 ML SYRINGE 0.6 ML SC BID anticoagulation. . Fentanyl Citrate (Duragesic) 50 MCG/HOUR PATCH.TD72 1 PAT TOP Q3D pain Ferrous Sulfate 325 MG (65 MG IRON) TABLET.DR 1 MG PO TID anemia Folic Acid 1 MG TABLET 1 MG PO DAILY anemia Multivitamin (One Daily Multivitamin) 1 EACH TABLET 1 TAB PO DAILY anemia Ondansetron (Zofran Odt) 4 MG TAB.RAPDIS 1 TAB SL TID PRN NAUSEA Oxycodone HCl (Oxycontin) 10 MG TAB.ER.12H 1 TAB PO BID SEVERE PAIN Oxycodone HCl 5 MG TABLET 3 TAB PO Q4P PRN severe pain Polyethylene Glycol 3350 (Miralax) 17 GRAM/DOSE POWDER 17 GM PO DAILY CONSTIPATION Sennosides/Docusate Sodium (Senna Plus Tablet) 8.6 MG-50 MG TABLET 2 TAB PO DAILY CONSTIPATION Thiamine HCl (Vitamin B-1) 100 MG TABLET 1 MG PO DAILY anemia Triage Note: PT SENT IN BY DR CISNEROS FOR HYPOTENSION AND LOWER BACK PAIN. STATES THE PAIN IS CHRONIC. SUPPOSED TO GO TO CHEMO TODAY FOR ESOPHAGUS CA BUT BP TOO LOW Triage Nurses Notes Reviewed? yes Onset: Abrupt Duration: day(s): (few) Timing: no prior history Injury Environment: home Severity: severe No Modifying Factors: none Associated Symptoms: difficulty breathing HPI: This is a 50-year-old female with history of recently diagnosed metastatic esophageal cancer, recent diagnosis of left internal jugular thrombosis on Lovenox twice a day presents from her oncologist office for chief complaint of a severe pain and found to have a low blood pressure. Patient is taking fentanyl and oxycodone for pain. She states that it hurts to eat or drink and she has not been doing much of either. She said she can tolerate some liquids. She was due to have her first dose of chemotherapy but they sent her over secondary to hypotension. Patient appears to be confused although she knows it is in stable. She is in moderate to severe distress secondary to pain all over her body. Denies any difficulty breathing. She has very dry oral mucosa and smells ketotic. Past History Travel History Traveled to [place] past 21 day No Medical History Any Pertinent Medical History? 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 No Review of Systems Review of Systems Constitutional: Denies: chills, fever. EENTM: Reports: no symptoms. Respiratory: Denies: cough, short of breath. Cardiovascular: Denies: chest pain, palpitations. GI: Reports: abdominal pain. Genitourinary: Reports: no symptoms. Musculoskeletal: Reports: no symptoms. Skin: Reports: no symptoms. Neurological/Psychological: Reports: anxiety. Hematologic/Endocrine: Denies: bruising, bleeding, polyuria, polydipsia. Immunologic/Allergic: Denies: splenectomy. All Other Systems: Reviewed and Negative Physical Exam Physical Exam General Appearance: well developed/nourished, alert, awake Head: atraumatic, normal appearance Eyes: Bilateral: PERRL, EOMI. Ears, Nose, Throat: dry mucus membranes Neck: normal inspection, supple, full range of motion Respiratory: normal breath sounds, chest non-tender, no respiratory distress Cardiovascular: regular rate/rhythm Peripheral Pulses: 2+ radial (R), 2+ radial (L) Gastrointestinal: soft, non-tender Extremities: normal inspection, normal range of motion, no edema Neurologic/Psych: awake, alert, oriented x 3 Skin: intact, normal color, warm/dry Core Measures ACS in differential dx? No CVA/TIA Diagnosis: No Severe Sepsis Present: No Septic Shock Present: No Progress Differential Diagnoses I considered the following diagnoses in my evaluation of the patient: [ Dehydration, acute kidney injury, metastatic cancer, deep vein thrombosis, electrolyte disturbance] Plan of Care: Orders Procedure Date/time Status LACTIC ACID 06/16 UNK Complete LACTIC ACID 06/16 1309 Active ACETONE 06/16 1125 Active URINALYSIS 06/16 1009 Active TROPONIN LEVEL 06/16 1009 Active COMPREHENSIVE METABOLIC PANEL 06/16 1009 Active CBC WITHOUT DIFFERENTIAL 06/16 1009 Complete EKG 06/16 1009 Active Laboratory Tests 06/16/16 1145: Lactic Acid 1.4 06/16/16 1145: Anion Gap 17 H, Estimated GFR 48 L, BUN/Creatinine Ratio 44.2 H, Glucose 103 H, Calcium 10.0, Total Bilirubin 4.7 H, AST 72 H, ALT 37, Alkaline Phosphatase 267 H, Troponin I < 0.01, Total Protein 6.9, Albumin 2.9 L, Globulin 4.0, Albumin/Globulin Ratio 0.7 L, CBC w Diff NO MAN DIFF REQ, RBC 3.06 L, MCV 75.0 L, MCH 24.6 L, RDW 19.3 H, MPV 7.6, Gran % 83.0 H, Lymphocytes % 6.9 L, Monocytes % 6.7, Eosinophils % 2.4, Basophils % 1.0, Absolute Granulocytes 10.0 H, Absolute Lymphocytes 0.8 L, Absolute Monocytes 0.8 H, Absolute Eosinophils 0.3, Absolute Basophils 0.1, PUBS MCHC 32.8 L, Acetone Level Pending 06/16/16 1011: Acetone Level Cancelled Diagnostic Imaging: Viewed by Me: CT Scan, Ultrasound. Discussed w/RAD: CT Scan, Ultrasound. Initial ED EKG: nonspecific ST T wave chg, sinus tachycardia Rhythm Strip: sinus tachycardia Comments: PATIENT: ANDRAE BUTCHER PRESENT AGE: 50 PATIENT ACCOUNT NO: [id number] : 66 LOCATION: 2NA ORDERING PHYSICIAN: LAWRENCE BEATTY MD SERVICE DATE: 06/16/16 EXAM TYPE: US - US-LIMITED ABDOMEN EXAMINATION: US ABDOMEN LIMITED CLINICAL INFORMATION: Elevated LFTs. Abdominal pain. Metastatic esophageal cancer. Rule out portal vein thrombosis. COMPARISON: CTA of the chest dated 06/02/2016. CT scan of the chest dated 05/10/2016. CT scan of the abdomen and pelvis dated 05/08/2016. TECHNIQUE: Real-time imaging of the right upper quadrant abdominal viscera. FINDINGS: PANCREAS: There is focal nodular prominence seen contiguous with the pancreatic body/tail junction, measuring approximately 1.3 x 0.8 x 1.2 cm, likely corresponding to the previously demonstrated peripancreatic metastatic deposit. The remainder of the visualized pancreas is unremarkable. LIVER: There is a 1.4 x 0.9 cm pericapsular hypoechoic mass along the left lobe of the liver, suspicious for a subcapsular metastatic deposit, larger when compared to the prior CT scan of the chest. Liver parenchyma is diffusely heterogeneous. In the left lobe, there is a 1 cm diameter hypoechoic mass, not seen on previous imaging, suspicious for metastatic disease. No definite additional liver mass. However evaluation overall is slightly limited since the patient had to be scanned in a semiupright position and was in severe pain throughout the examination, limiting optimal visualization of structures. GALLBLADDER: The gallbladder wall appears mildly thickened and edematous, measuring 0.4 cm in diameter. Thickened bile is seen within the gallbladder lumen. No defined gallstones are visualized. COMMON BILE DUCT: Dilated in caliber measuring 0.8 cm in diameter. No definite intraductal stone or mass is seen though the entirety of the CBD cannot be visualized. RIGHT KIDNEY: Normal. No hydronephrosis. No renal calculi or focal parenchymal lesions. The kidney measures 9.3 cm in maximum dimension. The large right adrenal mass seen on prior CT scan is not clearly appreciated on this exam. FREE FLUID: None. IMPRESSION: Limited exam. Several metastatic deposits are seen, including adjacent to the pancreatic body tail junction and left hepatic capsule, appearing more prominent than on prior exam. Known adrenal masses are not seen on this study. New left lobe of liver lesion is seen, suspicious for metastatic disease. Thickened and edematous gallbladder wall with thickened bile within the gallbladder lumen. Findings are nonspecific and may be related to gallbladder dysfunction versus low-grade inflammation. Clinical correlation requested. Mild dilatation of the common bile duct. No definite choledocholithiasis appreciated on this limited exam. DICTATED BY: SARA RANDALL MD DATE/TIME DICTATED:06/16/161345 DENTAL APPLIANCE REPAIRER:ALYSHA DATE/TIME TRANSCRIBED:06/16/161345 CONFIDENTIAL, DO NOT COPY WITHOUT APPROPRIATE AUTHORIZATION. <Electronically signed in Other Vendor System> SIGNED BY: SARA RANDALL MD [id number] PATIENT: ANDRAE BUTCHER PRESENT AGE: 50 PATIENT ACCOUNT NO: [id number] : 66 LOCATION: A ORDERING PHYSICIAN: LAWRENCE BEATTY MD SERVICE DATE: 06/16/16-1301 EXAM TYPE: CAT - CT ABD & PELVIS W/O IV CONTRAS EXAMINATION: CT ABDOMEN AND PELVIS WITHOUT CONTRAST CLINICAL INFORMATION: Elevated LFTs. Biliary obstruction. Esophageal cancer. COMPARISON: Abdominal ultrasound same day, CTA of chest 06/02/[address] abdomen pelvis 05/08/2016 TECHNIQUE: Multidetector volumetric imaging was performed from the superior aspect of the liver through the pubic symphysis. Sagittal and coronal reformatted images were obtained on the technologist's workstation. Evaluation of solid organs is limited secondary to lack of intravenous contrast. DLP: 278 mGy-cm. FINDINGS: Visualized lung bases demonstrate a small left-sided pleural effusion. Interval development of 4 mm pulmonary nodule of the right lung base (image , series 2). Mild interval increase in size of left subcapsular hepatic mass, today measuring 1.3 cm (previously 8 mm). There is no gross intrahepatic biliary ductal dilatation. The gallbladder demonstrates increased attenuation, possibly related to vicarious excretion of contrast. Evaluation of the pancreas is limited secondary to lack of IV contrast and surrounding metastatic deposits. Right adrenal gland mass again appreciated. Mild interval increase in size of left adrenal gland mass. Evaluation of the kidneys is suboptimal. There is questionable left sided hydronephrosis without gross renal calculi. Diffuse circumferential thickening of the distal esophagus. Normal caliber loops of small and large bowel. Mild colonic diverticulosis without CT evidence to suggest active diverticulitis. Interval increase in size and number of subcutaneous and peritoneal metastatic deposits, for example a 2.8 cm metastatic deposit within the left upper abdomen previously measured 2.4 cm (image 31/, series 2). Numerous subcutaneous metastatic deposits throughout the abdomen and breast are again identified and increased in size and number. Fullness adjacent to the aorta is suggestive of para-aortic lymphadenopathy. The bladder is partially distended and grossly unremarkable. No gross acute osseous abnormality.. IMPRESSION: Worsening metastatic disease throughout the chest, abdomen and pelvis. Peritoneal and subcutaneous masses have increased in size and number. Hepatic and adrenal lesions have increased in size. Likely new 4 mm pulmonary nodule of the right lung base. Mild interval increase in size of small left pleural effusion. DICTATED BY: KANU LAURENT MD DATE/TIME DICTATED:06/16/161503 DENTAL APPLIANCE REPAIRER:ALYSHA DATE/TIME TRANSCRIBED:06/16/161503 CONFIDENTIAL, DO NOT COPY WITHOUT APPROPRIATE AUTHORIZATION. <Electronically signed in Other Vendor System> SIGNED BY: KANU LAURENT MD 06/16/16 1526 Departure Departure Time of Disposition: 1244 Disposition: STILL A PATIENT Condition: Stable Clinical Impression Primary Impression: YURIDIA (acute kidney injury) Secondary Impressions: Esophageal cancer, Hyponatremia, Liver function abnormality Referrals: KRISTIAN LAKE MD (PCP/Family) FUENTES CARRILLO MD,RAJENDRA Departure Forms: Customer Survey General Discharge Information Admission Note Spoke With: YESIKA FELDMAN MD Documentation of Exam: Documentation of any treatments & extenuating circumstances including Concerns Regarding Discharge (functional status, medication knowledge or non-compliance, living conditions, etc.) that warrant an admission rather than observation: [IV fluids, IV pain control, monitor electrolytes, oncology consultation, palliative care consultation] Critical Care Note Critical Care Note Critical Care Time: non-applicable
[2016-06-16 12:07] LABS: ABSOLUTE BASOPHIL COUNT 0.1 /CUMM (0.0-0.2); ABSOLUTE EOSINOPHIL COUNT 0.3 /CUMM (0.0-0.7); ABSOLUTE LYMPH COUNT 0.8 /CUMM (1.2-3.4); ABSOLUTE MONOCYTE COUNT 0.8 /CUMM (0.10-0.60); EOSINOPHIL % 2.4 % (0-5); HEMATOCRIT 22.9 % (37-47); MEAN CORPUSCULAR HGB 24.6 PG (27.0-31.0); MEAN CORPUSCULAR HGB CONC 32.8 G/DL (33.0-37.0); MEAN PLATELET VOLUME 7.6 FL (7.4-10.4); PLATELET COUNT 292 /CUMM (130-400); RBC DISTRIBUTION WIDTH 19.3 % (11.5-14.5); RED BLOOD CELL CT 3.06 /CUMM (4.20-5.40); WHITE BLOOD CELL COUNT 12.1 /CUMM (4.8-10.8)
--- NOTE | 2016-06-16 13:48 | History & Physical ---
ANILLAURA 06/16/16 1348: General Information and HPI MD Statement: I have seen and personally examined ANDRAE BUTCHER and documented this H&P. 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 Today when she went to meet with her oncologist to start chemotherapy her blood pressure was found to be too low and she was sent to the ED from there. Patient states that he has not been able to eat since the past few days more difficulty with solids and swallowing. She also states that her pain is uncontrolled pain and diffuse. Denies fever, chills, shortness of breath, chest pain, palpitations Allergies/Medications Allergies: Coded Allergies: NO KNOWN ALLERGIES (06/07/16) Home Med list Albuterol Sulfate (Proair Hfa) 90 MCG HFA.AER.AD 2 PUF INH Q4-6 PRN PRN ASTHMA (Reported) Enoxaparin Sodium (Lovenox) 60 MG/0.6 ML SYRINGE 0.6 ML SC BID anticoagulation. . Fentanyl Citrate (Duragesic) 50 MCG/HOUR PATCH.TD72 1 PAT TOP Q3D pain Ferrous Sulfate 325 MG (65 MG IRON) TABLET.DR 1 MG PO TID anemia Folic Acid 1 MG TABLET 1 MG PO DAILY anemia Multivitamin (One Daily Multivitamin) 1 EACH TABLET 1 TAB PO DAILY anemia Ondansetron (Zofran Odt) 4 MG TAB.RAPDIS 1 TAB SL TID PRN NAUSEA Oxycodone HCl (Oxycontin) 10 MG TAB.ER.12H 1 TAB PO BID SEVERE PAIN Oxycodone HCl 5 MG TABLET 3 TAB PO Q4P PRN severe pain Polyethylene Glycol 3350 (Miralax) 17 GRAM/DOSE POWDER 17 GM PO DAILY CONSTIPATION Sennosides/Docusate Sodium (Senna Plus Tablet) 8.6 MG-50 MG TABLET 2 TAB PO DAILY CONSTIPATION Thiamine HCl (Vitamin B-1) 100 MG TABLET 1 MG PO DAILY anemia Compliance With Home Meds: GOOD Past History Travel History Traveled to [place] past 21 day No Medical History Neurological: NONE EENT: NONE Cardiovascular: NONE Respiratory: asthma Gastrointestinal: pancreatitis Hepatic: NONE Renal: BLADDER INFECTIONS Musculoskeletal: NONE Psychiatric: NONE Endocrine: NONE Blood Disorders: DVT Cancer(s): POORLY DIFFERENTIATED ADENOCARCINOMA OF THE DISTAL ESOPHAGUS DIRECTOR OF STRATEGIC PROGRAMS/Reproductive: NONE History of MRSA: No History of VRE: No History of CDIFF: No Surgical History Surgical History: non-contributory, N Past Family/Social History Family History Relations & Conditions if any MOTHER Myocardial infarction Psychosocial History Where do you live? Home Who Do You Live With? boyfriend Services at Home: None Primary Language: [place] Leone[place] Smoking Status: Former Smoker ETOH Use: occasional use Illicit Drug Use: denies illicit drug use Review of Systems Review of Systems Constitutional: Denies: no symptoms, see HPI. Cardiovascular: Denies: chest pain, edema, orthopena, palpitations, peripheral edema, syncope. Respiratory: Denies: cough, hemoptysis, orthopnea, short of breath, sputum production, stridor, wheezing. GI: Reports: abdominal pain. Denies: bloating, constipation, diarrhea, distention, bowel incontinence, melena, nausea, bloody stool, changes in stool, vomiting, steatorrhea. Genitourinary: Denies: discharge, dysuria, frequency, hematuria, hesitation, nocturia, pain, urgency. Musculoskeletal: Denies: back pain, joint pain, muscle pain. Exam & Diagnostic Data Last 24 Hrs of Vital Signs/I&O Vital Signs Date Time Temp Pulse Resp B/P Pulse O2 O2 Flow FiO2 Ox Delivery Rate 06/16 1437 98.2 97 18 105/59 95 Room Air 06/16 1205 98.1 106 18 109/59 100 Room Air 06/16 0954 97.6 105 20 90/62 94 Room Air Intake & Output 06/16 1600 06/16 0800 06/16 0000 Intake Total 1000 Output Total Balance 1000 Intake, IV 1000 Patient 124 lb Weight Physical Exam General Appearance Oriented X3, Cooperative, Moderate Distress, drowsy secondary to pain meds Cardiovascular Normal S1, Normal S2 Lungs Normal Air Movement Abdomen diffuse tenderness to mild palpation Extremities No Edema Last 24 Hrs of Labs/Al: Laboratory Tests 06/16/16 1145: Lactic Acid 1.4 06/16/16 1145: Anion Gap 17 H, Estimated GFR 48 L, BUN/Creatinine Ratio 44.2 H, Glucose 103 H, Calcium 10.0, Total Bilirubin 4.7 H, AST 72 H, ALT 37, Alkaline Phosphatase 267 H, Troponin I < 0.01, Total Protein 6.9, Albumin 2.9 L, Globulin 4.0, Albumin/Globulin Ratio 0.7 L, CBC w Diff NO MAN DIFF REQ, RBC 3.06 L, MCV 75.0 L, MCH 24.6 L, RDW 19.3 H, MPV 7.6, Gran % 83.0 H, Lymphocytes % 6.9 L, Monocytes % 6.7, Eosinophils % 2.4, Basophils % 1.0, Absolute Granulocytes 10.0 H, Absolute Lymphocytes 0.8 L, Absolute Monocytes 0.8 H, Absolute Eosinophils 0.3, Absolute Basophils 0.1, PUBS MCHC 32.8 L, Acetone Level NEGATIVE 06/16/16 1011: Acetone Level Cancelled Diagnostic Data EKG Results Sinus tachycardia, nonspecific T-wave changes in inferior leads Other Results US-LIMITED ABDOMEN PANCREAS: There is focal nodular prominence seen contiguous with the pancreatic body/tail junction, measuring approximately 1.3 x 0.8 x 1.2 cm, likely corresponding to the previously demonstrated peripancreatic metastatic deposit. The remainder of the visualized pancreas is unremarkable. LIVER: There is a 1.4 x 0.9 cm pericapsular hypoechoic mass along the left lobe of the liver, suspicious for a subcapsular metastatic deposit, larger when compared to the prior CT scan of the chest. Liver parenchyma is diffusely heterogeneous. In the left lobe, there is a 1 cm diameter hypoechoic mass, not seen on previous imaging, suspicious for metastatic disease. No definite additional liver mass. However evaluation overall is slightly limited since the patient had to be scanned in a semiupright position and was in severe pain throughout the examination, limiting optimal visualization of structures. GALLBLADDER: The gallbladder wall appears mildly thickened and edematous, measuring 0.4 cm in diameter. Thickened bile is seen within the gallbladder lumen. No defined gallstones are visualized. COMMON BILE DUCT: Dilated in caliber measuring 0.8 cm in diameter. No definite intraductal stone or mass is seen though the entirety of the CBD cannot be visualized. RIGHT KIDNEY: Normal. No hydronephrosis. No renal calculi or focal parenchymal lesions. The kidney measures 9.3 cm in maximum dimension. The large right adrenal mass seen on prior CT scan is not clearly appreciated on this exam. FREE FLUID: None. IMPRESSION: Limited exam. Several metastatic deposits are seen, including adjacent to the pancreatic body tail junction and left hepatic capsule, appearing more prominent than on prior exam. Known adrenal masses are not seen on this study. New left lobe of liver lesion is seen, suspicious for metastatic disease. Thickened and edematous gallbladder wall with thickened bile within the gallbladder lumen. Findings are nonspecific and may be related to gallbladder dysfunction versus low-grade inflammation. Clinical correlation requested. Mild dilatation of the common bile duct. No definite choledocholithiasis appreciated on this limited exam. 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 Blood pressure on admission 90/60s improved with 1 L of normal saline. Limited abdominal ultrasound shows new left lobe liver lesion, taken at him as gallbladder wall with thickened bile within gallbladder lumen and mild dilatation of the CBD with no choledocholithiasis will be admitted to genmed floor for decrease PO intake and pain management. As Ranked By This Provider Problem List: 1. Primary cancer of esophagus with metastasis to other site Assessment/Plan elevated Tbili, creatinine and bun points to prerenal azotemia will continue IV hydration Palliative care consult to make changes to pain meds Oxycontin 60mg q8h, Oxycodone 15mg q4h PRN for breakthrough pain will obtain nutrition consult continue bowel regimen oncology aware of pt's hospitalization 2. History of DVT (deep vein thrombosis) Assessment/Plan continue to with lovenox 3. Full code status 4. DVT prophylaxis Core Measures/Miscellaneous Acute Coronary Syndrome ACS Diagnosis: No Cerebrovascular Accident CVA/TIA Diagnosis: No Congestive Heart Failure CHF Diagnosis: No Venous Thromboembolism VTE Risk Factors: Age > 40, Cancer/chemo/oth therapy VTE Prophylaxis Ordered Inpt: Pharm- Lovenox No Mech VTE prophylaxis d/t: No contraindications No VTE Pharm Prophylaxis d/t: No contraindications VTE Diagnosis: Yes VTE Type: Deep Venous Thrombosis VTE Confirmed by (Test): UNILATERAL VENOUS DOPPLER Severe Sepsis Severe Sepsis Present: No Septic Shock Septic Shock Present: No Miscellaneous Documentation Attending Case Discussed With: YESIKA FELDMAN MD Primary Care Physician: KRISTIAN LAKE MD Patient sees these Specialists none Level of Patient Care: General Medicine ANYA SERRANO,LASHANDA 06/16/16 1524: Resident Review Statement Resident Statement: examined this patient, discussed with internal controls consultant, agreed with internal controls consultant, discussed with family, reviewed EMR data (avail) Other Findings: Patient is a 50-year-old female with past medical history of diabetes, asthma, recent diagnosis of esophageal cancer( May 2016) with extensive metastasis presented to the ED from her oncologist office for low blood pressure. Complaints of poor by mouth intake for the last 2-3 days. Patient reports this is chronic as been going on for a while, with periods of exacerbation may she has decreased appetite complains of difficulty in solids on and off, okay with liquids. At one episode of vomiting this morning. Denies diarrhea. Brains of diffuse pain all over her body more on the abdomen now in the left and right upper quadrant. Denies fever, chills, shortness of breath, chest pain. The patient was recently discharged from [facility] to be treated for a DVT of the left upper extremity with nonocclusive thrombus in the upper region of the internal jugular vein with contiguous extension to the proximal segment of the left internal jugular vein currently on Lovenox. O/E patient is alert, oriented X3 CVS: S1, S2 regular no murmur RS: b/l decreased osunds decreased Abd: Soft, , Multiple masses palpated all over the belly, diffuse tenderness present, bowel sounds present. Extremities: No pedal edema Imaging studies 1. CT abdomen pelvis without IV contrast showed worsening metastatic disease throughout the chest abdomen and pelvis. Predominant subcutaneous tenderness masses increased in size and number. Hepatic and administration 7 increase in size. Likely new 4 mm pulmonary nodule on the right lung base. Assessment and plan 1. Hypotension secondary to poor by mouth intake. BUN/creatinine is also increased. Admit her to the general medical floor. Hydrate with IV fluids. We 'll start on a regular diet. 2. Increasing LFTs: Abdominal ultrasound doesn't show evidence of gallbladder pathology but worsening metastatic disease throughout the abdomen chest and pelvis. We'll continue to follow her LFTs. No further imaging studies at this time. 3. YURIDIA : pre renal. IV fluids 4. Diffuse pain due to disseminated cancer: Patient is on short-acting and long -acting oxycodone and fentanyl patch at home. She takes 75 mg of fentanyl and 10 mg of OxyContin twice a day, oxycodone 15 daily. Inadequate pain control. We will discontinue her fentanyl patch and increase her OxyContin to 60 3 times a day and continue oxycodone 50 every 4 for breakthrough pain. Will monitor her while she is on. Medications for his depression. 5. Esophageal cancer Widespread metastasis stasis: Will consult with oncology and decide on further management. Our focus is to improve quality of life. Will order physical therapy. Given her widespread disease she has a poor prognosis and outcome. Will initiate discussion about palliative care during this admission. we Readdress the CODE STATUS again. 6. DVT of the internal jugular vein: We will continue on Lovenox 60 twice a day Full CODE STATUS DVT prophylaxis on Lovenox YESIKA FELDMAN MD 06/16/16 1613: Attending MD Review Statement Attending Statement Attending MD Statement: examined this patient, discuss w/resident/PA/GYM INSTRUCTOR, agreed w/resident/PA/GYM INSTRUCTOR, reviewed EMR data (avail) Attending Assessment/Plan: 50F PMH asthma, ETOH dependency, recently diagnosed poorly differentiated adenoma of esophagus with multiple metastases, B/L upper extremity DVT on lovenox presenting with generalized weakness, poor appetite, poor PO intake, and dehydration. Had been scheduled for first chemotherapy session today but was hypotensive in oncologist's office and sent to ED. Labs show anemia with Hgb 7.5, labs show dehydration, YURIDIA. Patient reports dysphagia and odynophagia. Also reports diffuse body pain worst in abdomen. 1. Stage IV esophageal carcinoma 2. Failure to thrive 3. Left IJ and bilateral UE DVT 4. Debility Plan - Admit to general medicine - Nutrition consult - Start IV hydration - Continue bowel regimen - Palliative care consult - Start Oxycontin 60mg q8h - Start Oxycodone 15mg q4h PRN for breakthrough pain - Watch for sedation and respiratory depression - DIscontinue Dilaudid and Fentanyl patch - Will consider starting Gabapentin tomorrow - Continue PPI - Follow oncology recommendations - COntinue Lovenox
--- NOTE | 2016-06-16 14:22 | ULTRASOUND REPORT ---
EXAMINATION: US ABDOMEN LIMITED CLINICAL INFORMATION: Elevated LFTs. Abdominal pain. Metastatic esophageal cancer. Rule out portal vein thrombosis. COMPARISON: CTA of the chest dated 06/02/2016. CT scan of the chest dated 05/10/2016. CT scan of the abdomen and pelvis dated 05/08/2016. TECHNIQUE: Real-time imaging of the right upper quadrant abdominal viscera. FINDINGS: PANCREAS: There is focal nodular prominence seen contiguous with the pancreatic body/tail junction, measuring approximately 1.3 x 0.8 x 1.2 cm, likely corresponding to the previously demonstrated peripancreatic metastatic deposit. The remainder of the visualized pancreas is unremarkable. LIVER: There is a 1.4 x 0.9 cm pericapsular hypoechoic mass along the left lobe of the liver, suspicious for a subcapsular metastatic deposit, larger when compared to the prior CT scan of the chest. Liver parenchyma is diffusely heterogeneous. In the left lobe, there is a 1 cm diameter hypoechoic mass, not seen on previous imaging, suspicious for metastatic disease. No definite additional liver mass. However evaluation overall is slightly limited since the patient had to be scanned in a semiupright position and was in severe pain throughout the examination, limiting optimal visualization of structures. GALLBLADDER: The gallbladder wall appears mildly thickened and edematous, measuring 0.4 cm in diameter. Thickened bile is seen within the gallbladder lumen. No defined gallstones are visualized. COMMON BILE DUCT: Dilated in caliber measuring 0.8 cm in diameter. No definite intraductal stone or mass is seen though the entirety of the CBD cannot be visualized. RIGHT KIDNEY: Normal. No hydronephrosis. No renal calculi or focal parenchymal lesions. The kidney measures 9.3 cm in maximum dimension. The large right adrenal mass seen on prior CT scan is not clearly appreciated on this exam. FREE FLUID: None. IMPRESSION: Limited exam. Several metastatic deposits are seen, including adjacent to the pancreatic body tail junction and left hepatic capsule, appearing more prominent than on prior exam. Known adrenal masses are not seen on this study. New left lobe of liver lesion is seen, suspicious for metastatic disease. Thickened and edematous gallbladder wall with thickened bile within the gallbladder lumen. Findings are nonspecific and may be related to gallbladder dysfunction versus low-grade inflammation. Clinical correlation requested. Mild dilatation of the common bile duct. No definite choledocholithiasis appreciated on this limited exam.
--- NOTE | 2016-06-16 15:26 | CT SCAN REPORT ---
EXAMINATION: CT ABDOMEN AND PELVIS WITHOUT CONTRAST CLINICAL INFORMATION: Elevated LFTs. Biliary obstruction. Esophageal cancer. COMPARISON: Abdominal ultrasound same day, CTA of chest 06/02/[address] abdomen pelvis 05/08/2016 TECHNIQUE: Multidetector volumetric imaging was performed from the superior aspect of the liver through the pubic symphysis. Sagittal and coronal reformatted images were obtained on the technologist's workstation. Evaluation of solid organs is limited secondary to lack of intravenous contrast. DLP: 278 mGy-cm. FINDINGS: Visualized lung bases demonstrate a small left-sided pleural effusion. Interval development of 4 mm pulmonary nodule of the right lung base (image 10/87, series 2). Mild interval increase in size of left subcapsular hepatic mass, today measuring 1.3 cm (previously 8 mm). There is no gross intrahepatic biliary ductal dilatation. The gallbladder demonstrates increased attenuation, possibly related to vicarious excretion of contrast. Evaluation of the pancreas is limited secondary to lack of IV contrast and surrounding metastatic deposits. Right adrenal gland mass again appreciated. Mild interval increase in size of left adrenal gland mass. Evaluation of the kidneys is suboptimal. There is questionable left sided hydronephrosis without gross renal calculi. Diffuse circumferential thickening of the distal esophagus. Normal caliber loops of small and large bowel. Mild colonic diverticulosis without CT evidence to suggest active diverticulitis. Interval increase in size and number of subcutaneous and peritoneal metastatic deposits, for example a 2.8 cm metastatic deposit within the left upper abdomen previously measured 2.4 cm (image 31/87, series 2). Numerous subcutaneous metastatic deposits throughout the abdomen and breast are again identified and increased in size and number. Fullness adjacent to the aorta is suggestive of para-aortic lymphadenopathy. The bladder is partially distended and grossly unremarkable. No gross acute osseous abnormality.. IMPRESSION: Worsening metastatic disease throughout the chest, abdomen and pelvis. Peritoneal and subcutaneous masses have increased in size and number. Hepatic and adrenal lesions have increased in size. Likely new 4 mm pulmonary nodule of the right lung base. Mild interval increase in size of small left pleural effusion.
[2016-06-16 15:39] VITALS: BP 102/54
--- NOTE | 2016-06-16 16:09 | Admission Certification ---
Admission Certification Certification Statement - As attending physician, I certify that at the time of - admission, based on clinical presentation, severity of - symptoms, need for further diagnostic testing and - therapeutic interventions, and risk of adverse outcomes - without in-hospital treatment, in my clinical assessment, - this patient requires an acute hospital stay for a minimum - of two nights or longer. I have also considered psychsocial - factors such as support system, advanced age, financial - issues, cognitive issues, and failed out-patient treatments, - past re-admission history, safety of patient, and lack of - compliance as applicable. Specific rationale supporting this admission is: Dehydration and inability to eat in stage 4 esophageal cancer
--- NOTE | 2016-06-16 20:10 | Cons- Oncology ---
General Information and HPI Consulting Request Date of Consult: 06/16/16 Requested By: YESIKA FELDMAN MD Reason for Consult: Metastatic esophageal cancer Source of Information: patient, old records Exam Limitations: no limitations History of Present Illness: Ms. Hernández is a 50-year-old female with history of alcohol usage and metastatic esophageal carcinoma who presented to ED after being noted to have hypotension and uncontrolled pain in clinic today. She has been in and out of the hospital for pain and thrombosis over the last month. She presented to clinic today for initiation of chemotherapy. She was noted to have blood pressure of 79/55 today. She feels fatigued. She has not been eating or drinking much. She continues to have dsyphagia and odynophagia. She also noted to have persistent pain in her abdomen and back. Her fentanyl patch was increased from 50 mcg to 75 mcg on Tuesday with 15 mg oxycodone every 4 hours as needed on Tuesday. Pain continues to be severe and breakthrough only helped for 1 hour. Her energy level has decreased. She is not doing much activitiy. She denies any fever or chills. She has nausea and some vomiting. She denies any diarrhea or constipation. Her stool is dark but has been the same since starting iron. She denies any other bleeding. She does note she may have had a clot in her emesis once. She is compliant with her enoxaparin 120 mg SC once daily. In the ED, she was noted to have improved BP in the 90s. She continues to be in severe pain. She underwent blood work which demonstrated worsening anemia at 7.5, worsening renal function, and worsening LFT with bilirubin of 4.3. She underwent imaging with CT of the abdomen worsening metastatic disease with increasing peritoneal and subcutaneous masses in size and numbe. Hepatic and adrenal lesions have increased in size. Potentially new 4 mm pulmonary nodule of the right lung base. Ultrasound of the abdomen demonstrated several metastatic deposits are seen, including adjacent to the pancreatic body tail junction and left hepatic capsule, appearing more prominent than on prior exam. New left lobe of liver lesion is seen, suspicious for metastatic disease. Thickened and edematous gallbladder wall with thickened bile within the gallbladder lumen. Mild dilatation of the common bile duct. No definite choledocholithiasis appreciated. She is now on oral pain medication with Oxycontin and oxycodone. She is on IVF. Allergies/Medications Allergies: Coded Allergies: NO KNOWN ALLERGIES (06/07/16) Home Med List: Albuterol Sulfate (Proair Hfa) 90 MCG HFA.AER.AD 2 PUF INH Q4-6 PRN PRN ASTHMA (Reported) Enoxaparin Sodium (Lovenox) 60 MG/0.6 ML SYRINGE 0.6 ML SC BID anticoagulation. . Fentanyl Citrate (Duragesic) 50 MCG/HOUR PATCH.TD72 1 PAT TOP Q3D pain Ferrous Sulfate 325 MG (65 MG IRON) TABLET.DR 1 MG PO TID anemia Folic Acid 1 MG TABLET 1 MG PO DAILY anemia Multivitamin (One Daily Multivitamin) 1 EACH TABLET 1 TAB PO DAILY anemia Ondansetron (Zofran Odt) 4 MG TAB.RAPDIS 1 TAB SL TID PRN NAUSEA Oxycodone HCl (Oxycontin) 10 MG TAB.ER.12H 1 TAB PO BID SEVERE PAIN Oxycodone HCl 5 MG TABLET 3 TAB PO Q4P PRN severe pain Polyethylene Glycol 3350 (Miralax) 17 GRAM/DOSE POWDER 17 GM PO DAILY CONSTIPATION Sennosides/Docusate Sodium (Senna Plus Tablet) 8.6 MG-50 MG TABLET 2 TAB PO DAILY CONSTIPATION Thiamine HCl (Vitamin B-1) 100 MG TABLET 1 MG PO DAILY anemia Current Medications: Current Medications Sig/Beata Start time Last Medication Dose Route Stop Time Status Admin Enoxaparin Sodium 60 MG BID 06/16 2200 AC SC Fentanyl Citrate 75 MCG Q3D 06/17 1800 CAN TOP Folic Acid 1 MG DAILY 06/16 1450 AC PO Gabapentin 100 MG Q8 06/16 1539 DC PO Hydromorphone HCl 2 MG Q4P PRN 06/16 1500 DC IV Hydromorphone HCl 0 .STK-MED ONE 06/16 1403 DC .ROUTE Hydromorphone HCl 1 MG ONCE ONE 06/16 1400 DC 06/16 IV 06/16 1401 1407 Hydromorphone HCl 0 .STK-MED ONE 06/16 1232 DC .ROUTE Hydromorphone HCl 1 MG ONCE ONE 06/16 1230 DC 06/16 IV 06/16 1231 1237 Morphine Sulfate 4 MG ONCE ONE 06/16 1100 DC 06/16 SC 06/16 1101 1056 Morphine Sulfate 0 .STK-MED ONE 06/16 1053 DC .ROUTE Multivitamins 1 TAB DAILY 06/16 1450 AC 06/16 Therapeutic PO 1715 Oxycodone HCl 15 MG BID 06/16 2200 DC PO Oxycodone HCl 60 MG Q8H 06/16 1625 AC 06/16 PO 1715 Oxycodone HCl 15 MG Q4P PRN 06/16 1500 AC PO Oxycodone HCl 10 MG BID 06/16 1450 DC PO Polyethylene Glycol 17 GM DAILY 06/17 1000 AC PO Senna/Docusate Sodium 2 TAB DAILY 06/16 1451 AC PO Sodium Chloride 1,000 ML .Q10H 06/16 1445 AC 06/16 IV 1720 Sodium Chloride 1,000 ML BOLUS ONE 06/16 1315 DC 06/16 IV 06/16 1414 1306 Sodium Chloride 1,000 ML BOLUS ONE 06/16 1015 DC 06/16 IV 06/16 1114 1205 Review of Systems Review of Systems Constitutional: Reports: malaise, weakness. Denies: chills, fever. EENTM: Reports: throat pain. Cardiovascular: Denies: chest pain, orthopena. Respiratory: Denies: cough, short of breath. GI: Reports: abdominal pain, nausea, vomiting. Denies: bloody stool, changes in stool. Genitourinary: Denies: dysuria. Musculoskeletal: Reports: back pain, muscle pain. Neurological/Psychological: Reports: anxiety. Hematologic/Endocrine: Denies: bruising, bleeding. Immunologic/Allergic: Denies: lymphadenopathy. 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 Home Who Do You Live With? boyfriend Services at Home: None Primary Language: Prydeinig Smoking Status: Former Smoker ETOH Use: occasional use Illicit Drug Use: denies illicit drug use Exam & Diagnostic Data Vital Signs and I&O Vital Signs Date Time Temp Pulse Resp B/P Pulse O2 O2 Flow FiO2 Ox Delivery Rate 06/16 1539 97.5 100 18 102/54 94 Room Air 06/16 1437 98.2 97 18 105/59 95 Room Air 06/16 1205 98.1 106 18 109/59 100 Room Air 06/16 0954 97.6 105 20 90/62 94 Room Air Intake & Output 06/16 1600 06/16 0800 06/16 0000 Intake Total 1000 Output Total Balance 1000 Intake, IV 1000 Patient 56.699 kg Weight Physical Exam General Appearance: comfortable, thin Head: atraumatic, normal appearance Ears, Nose, Throat: dry mucosa Neck: supple, fullness in neck Respiratory: chest non-tender, no respiratory distress, quiet respiration Cardiovascular: tachycardia Gastrointestinal: normal bowel sounds, soft, tenderness (diffusely) Back: no vertebral tenderness Extremities: mild edema in upper extremity Neurologic/Psych: flat affect Skin: normal color Lymphatic: no adenopathy Other Physical Findings: Right chest port in place and accessed Last 48 Hours of Lab Results: Laboratory Tests 06/16 06/16 06/16 06/16 1745 1745 1145 1145 Chemistry Sodium (137 - 145 mmol/L) 130 L 130 L Potassium (3.5 - 5.1 mmol/L) 4.3 4.3 Chloride (98 - 107 mmol/L) 92 L 87 L Carbon Dioxide (22 - 30 mmol/L) 23 27 Anion Gap (5 - 16) 15 17 H BUN (7 - 17 mg/dL) 45 H 53 H Creatinine (0.5 - 1.0 mg/dL) 1.1 H 1.2 H Estimated GFR (>60 ml/min) 53 L 48 L BUN/Creatinine Ratio (7 - 25 %) 40.9 H 44.2 H Glucose (65 - 99 mg/dL) 103 H Lactic Acid (0.7 - 2.1 mmol/L) 1.1 1.4 Calcium (8.4 - 10.2 mg/dL) 10.0 Total Bilirubin (0.2 - 1.3 mg/dL) 4.7 H AST (14 - 36 U/L) 72 H ALT (9 - 52 U/L) 37 Alkaline Phosphatase (<127 U/L) 267 H Troponin I (< 0.11 ng/ml) < 0.01 Total Protein (6.3 - 8.2 g/dL) 6.9 Albumin (3.5 - 5.0 g/dL) 2.9 L Globulin (1.9 - 4.2 gm/dL) 4.0 Albumin/Globulin Ratio (1.1 - 2.2 %) 0.7 L Hematology CBC w Diff NO MAN DIFF REQ WBC (4.8 - 10.8 /CUMM) 12.1 H RBC (4.20 - 5.40 /CUMM) 3.06 L Hgb (12.0 - 16.0 G/DL) 7.5 L Hct (37 - 47 %) 22.9 L MCV (81.0 - 99.0 FL) 75.0 L MCH (27.0 - 31.0 PG) 24.6 L RDW (11.5 - 14.5 %) 19.3 H Plt Count (130 - 400 /CUMM) 292 MPV (7.4 - 10.4 FL) 7.6 Gran % (42.2 - 75.2 %) 83.0 H Lymphocytes % (20.5 - 51.1 %) 6.9 L Monocytes % (1.7 - 9.3 %) 6.7 Eosinophils % (0 - 5 %) 2.4 Basophils % (0.0 - 2.0 %) 1.0 Absolute Granulocytes (1.4 - 6.5 /CUMM) 10.0 H Absolute Lymphocytes (1.2 - 3.4 /CUMM) 0.8 L Absolute Monocytes (0.10 - 0.60 /CUMM) 0.8 H Absolute Eosinophils (0.0 - 0.7 /CUMM) 0.3 Absolute Basophils (0.0 - 0.2 /CUMM) 0.1 PUBS MCHC (33.0 - 37.0 G/DL) 32.8 L Toxicology Acetone Level (NEGATIVE) NEGATIVE 06/16 1011 Toxicology Acetone Level Cancelled Imaging/Other Studies: Abd/pelvis CT 06/16/2016: Worsening metastatic disease throughout the chest, abdomen and pelvis. Peritoneal and subcutaneous masses have increased in size and number. Hepatic and adrenal lesions have increased in size. Likely new 4 mm pulmonary nodule of the right lung base. Mild interval increase in size of small left pleural effusion. Abd US 06/16/2016: Limited exam. Several metastatic deposits are seen, including adjacent to the pancreatic body tail junction and left hepatic capsule, appearing more prominent than on prior exam. Known adrenal masses are not seen on this study. New left lobe of liver lesion is seen, suspicious for metastatic disease. Thickened and edematous gallbladder wall with thickened bile within the gallbladder lumen. Findings are nonspecific and may be related to gallbladder dysfunction versus low-grade inflammation. Clinical correlation requested. Mild dilatation of the common bile duct. No definite choledocholithiasis appreciated on this limited exam. Assessment/Plan Assessment: Ms. Hernández is a 50-year-old female with widely metastatic biposy proven esophageal adenocarcinoma, HER2 positive who presents from clinic to ED with uncontrolled pain and hypotension. Hypotension is likely relative to hypovolemia. She has not been able to keep up with oral intake. She has YURIDIA which is likely pre-renal in nature. She has improved with her hypotension with IVF. Severe pain in the abdomen and back is not controlled as an outpatient on fentanyl 75 mcg/hr, oxycodone 15 mg every 4 hours prn, and Oxycontin 10 mg BID. Due to the severe pain, imaging with CT scan was done and noted significant progression of her disease over the past week or so. US of the abdomen for her elevated LFT demonstrated no ductal dilation but does demonstrate peripancreatic metastases and liver metastasis. She was tentatively scheduled for FOLFOX with trastuzumab today. Unfortunately due to her hypotension, pain, and ECOG PS 3, therapy was held. She has progressive disease with liver metastasis. Looking at the imaging, there is no obvious ductal dilation to potentially stent to help with her elevated bilirubin. She may still be able to get oxaliplatin but 5-FU would be given cautiously. Therapy will be dependent on improvement in her overally PS which is current at ECOG PS 3. If she does not improve, treatment will be limited as the risks will outweigh the benefits of chemotherapy. If she has significant dysphagia or odynophagia, I wonder if GI would consider palliative stenting. I discussed the overall goals of care with the patient again this evening. She expressed understanding of the aggressiveness of her disease and her deconditioning. She was not ready to make a decision on DNR/DNI or hospice. Involving palliative care care consult would be appropriate. I will continue to address this with the patient. Recommendations: 1. Continue IV hydration 2. Transfuse with 1 unit pRBC 3. Monitor LFT daily 4. Pain control: Oxycontin 60 mg Q8hr and oxycodone 15 mg Q4Hr prn, lower threshold to increase it 5. consider appetite stimulant such as marinol 6. Aggressive bowel regimen as last admission had significant constipation 7. If no improvement in deconditioning and LFT, therapy will be limited and may be candidate for hospice Problem List: 1. Liver function abnormality 2. Hyponatremia 3. YURIDIA (acute kidney injury) 4. Internal jugular (IJ) vein thromboembolism, acute 5. Metastatic cancer Other Findings/Comments: Please call [phone] with any questions or concerns Consult Acknowledgment - Thank you for your consult request.
[2016-06-16 22:08] VITALS: BP 90/58
[2016-06-16 23:11] VITALS: BP 88/50
[2016-06-17 02:00] VITALS: BP 98/60
[2016-06-17 06:06] VITALS: BP 90/50
[2016-06-17 06:25] LABS: ABSOLUTE BASOPHIL COUNT 0 /CUMM (0.0-0.2); ABSOLUTE EOSINOPHIL COUNT 0.3 /CUMM (0.0-0.7); ABSOLUTE GRANULOCYTE CT 10.7 /CUMM (1.4-6.5); ABSOLUTE LYMPH COUNT 0.6 /CUMM (1.2-3.4); ABSOLUTE MONOCYTE COUNT 0.7 /CUMM (0.10-0.60); BASOPHIL % 0 % (0.0-2.0); EOSINOPHIL % 2.8 % (0-5); GRANULOCYTE % 87.1 % (42.2-75.2); HEMATOCRIT 21.5 % (37-47); MEAN CORPUSCULAR HGB 24.4 PG (27.0-31.0); MEAN CORPUSCULAR VOLUME 76.4 FL (81.0-99.0); MEAN PLATELET VOLUME 7.4 FL (7.4-10.4); PLATELET COUNT 280 /CUMM (130-400); RBC DISTRIBUTION WIDTH 19.7 % (11.5-14.5); RED BLOOD CELL CT 2.81 /CUMM (4.20-5.40); WHITE BLOOD CELL COUNT 12.2 /CUMM (4.8-10.8)
--- NOTE | 2016-06-17 08:58 | Event Note ---
Event Note Event Note: Patient this morning is not doing well. Her h/h dropped. Patient was able to verbalize that Rebecca her sister will be next of kin and take decisions when she is not able to or in a position (worsening mentation) to make decisions. O/E she appears in discomfort, able to say yes or no, but unclear if she is able to understand the questions. CVS: S1, S2 regular RS: B/l breath sounds decreased. Abd: Tender, BS reduced Ext. No pedal edema Ass/Plan 1. Spoke to Rebecca patient's sister. Explained her medical condition. Per discussion with oncology that is no plan for further therapy with her current liver functions and her physical condition. He is currently full code. Explained that with her widespread metastasis to mediastinum and abdominal wall or be of more harm than benefit. Off note patient is also complaining of severe pain all over her body more on the chest and belly. After explaining in detail she understood that changing code status to DO NOT INTUBATE/resuscitate would be appropriate. Attending, medical team and nursing updated. Patient is deteriorating in spite of medical management we will further discuss about goals of scale and consider hospice at that time.
--- NOTE | 2016-06-17 09:25 | PN- Oncology ---
Subjective Subjective: She is a little somnolent this morning. Per the nursing staff, she has been somnolent off and on. She wakes up screaming in pain at time. She had a tarry stool per the nurse. Patient states she is still in a lot of pain. Review of Systems Constitutional: Reports: malaise. Denies: chills, fever. Cardiovascular: Denies: chest pain. Gastrointestinal: Reports: abdominal pain. Denies: constipation. Musculoskeletal: Reports: back pain. Neurological/Psychological: Reports: confusion, weakness. Immunologic/Allergic: Denies: lymphadenopathy. All Other Systems: Reviewed and Negative Objective Vital Signs and I&Os Vital Signs Date Time Temp Pulse Resp B/P Pulse O2 O2 Flow FiO2 Ox Delivery Rate 06/17 0606 97.9 110 20 90/50 94 Room Air 06/16 2311 97.9 111 18 88/50 95 Room Air 06/16 2208 98.0 108 18 90/58 94 Room Air 06/16 1539 97.5 100 18 102/54 94 Room Air 06/16 1437 98.2 97 18 105/59 95 Room Air 06/16 1205 98.1 106 18 109/59 100 Room Air 06/16 0954 97.6 105 20 90/62 94 Room Air Intake & Output 06/17 1600 06/17 0800 06/17 0000 06/16 1600 06/16 0800 06/16 0000 Intake Total 560 1000 Output Total Balance 560 1000 Intake, IV 500 1000 Intake, Oral 60 Patient 56.699 kg Weight Physical Exam General Appearance: lethargic Head: atraumatic Ears, Nose, Throat: dry mucosa Respiratory: chest non-tender, quiet respiration Cardiovascular: tachycardia Abdomen: tenderness (diffusely) Extremities: no edema Lymphatic: no adenopathy Current Medications: Current Medications Sig/Beata Start time Last Medication Dose Route Stop Time Status Admin Albuterol Sulfate 3 ML Q4P PRN 06/17 0845 AC INH Albuterol Sulfate 2 PUF Q4-6 PRN PRN 06/17 0830 AC INH Enoxaparin Sodium 60 MG BID 06/16 2200 DC 06/16 SC 2209 Fentanyl Citrate 75 MCG Q3D 06/17 1800 CAN TOP Folic Acid 1 MG DAILY 06/16 1450 AC PO Gabapentin 100 MG Q8 06/16 1539 DC PO Hydromorphone HCl 2 MG Q4P PRN 06/16 1500 DC IV Hydromorphone HCl 0 .STK-MED ONE 06/16 1403 DC .ROUTE Hydromorphone HCl 1 MG ONCE ONE 06/16 1400 DC 06/16 IV 06/16 1401 1407 Hydromorphone HCl 0 .STK-MED ONE 06/16 1232 DC .ROUTE Hydromorphone HCl 1 MG ONCE ONE 06/16 1230 DC 06/16 IV 06/16 1231 1237 Morphine Sulfate 4 MG ONCE ONE 06/16 1100 DC 06/16 SC 06/16 1101 1056 Morphine Sulfate 0 .STK-MED ONE 06/16 1053 DC .ROUTE Multivitamins 1 TAB DAILY 06/16 1450 AC 06/16 Therapeutic PO 1715 Oxycodone HCl 15 MG BID 06/16 2200 DC PO Oxycodone HCl 60 MG Q8H 06/16 1625 AC 06/17 PO 0059 Oxycodone HCl 15 MG Q4P PRN 06/16 1500 AC 06/17 PO 0740 Oxycodone HCl 10 MG BID 06/16 1450 DC PO Polyethylene Glycol 17 GM DAILY 06/17 1000 AC PO Senna/Docusate Sodium 2 TAB DAILY 06/16 1451 AC PO Sodium Chloride 500 ML BOLUS ONE 06/16 2345 DC 06/16 IV 06/17 0044 2348 Sodium Chloride 1,000 ML .Q6H40M 06/16 1445 AC 06/17 IV 0330 Sodium Chloride 1,000 ML BOLUS ONE 06/16 1315 DC 06/16 IV 06/16 1414 1306 Sodium Chloride 1,000 ML BOLUS ONE 06/16 1015 DC 06/16 IV 06/16 1114 1205 Results Last 24 Hours of Lab Results: Laboratory Tests 06/17 06/17 0830 0600 Chemistry Sodium (137 - 145 mmol/L) 134 L Potassium (3.5 - 5.1 mmol/L) 4.4 Chloride (98 - 107 mmol/L) 97 L Carbon Dioxide (22 - 30 mmol/L) 20 L Anion Gap (5 - 16) 18 H BUN (7 - 17 mg/dL) 44 H Creatinine (0.5 - 1.0 mg/dL) 1.2 H Estimated GFR (>60 ml/min) 48 L BUN/Creatinine Ratio (7 - 25 %) 36.7 H Lactic Acid (0.7 - 2.1 mmol/L) 1.0 Total Bilirubin (0.2 - 1.3 mg/dL) 5.8 H Direct Bilirubin (< 0.4 mg/dL) 5.1 H AST (14 - 36 U/L) 85 H ALT (9 - 52 U/L) 37 Alkaline Phosphatase (<127 U/L) 301 H Total Protein (6.3 - 8.2 g/dL) 6.2 L Albumin (3.5 - 5.0 g/dL) 2.5 L Coagulation PT Pending INR Pending Fibrinogen Activity Pending Fibrin Degrad Products Pending Hematology CBC w Diff MAN DIFF ORDERED WBC (4.8 - 10.8 /CUMM) 12.2 H RBC (4.20 - 5.40 /CUMM) 2.81 L Hgb (12.0 - 16.0 G/DL) 6.9 *L Hct (37 - 47 %) 21.5 L MCV (81.0 - 99.0 FL) 76.4 L MCH (27.0 - 31.0 PG) 24.4 L RDW (11.5 - 14.5 %) 19.7 H Plt Count (130 - 400 /CUMM) 280 MPV (7.4 - 10.4 FL) 7.4 Gran % (42.2 - 75.2 %) 87.1 H Lymphocytes % (20.5 - 51.1 %) 4.5 L Monocytes % (1.7 - 9.3 %) 5.6 Eosinophils % (0 - 5 %) 2.8 Basophils % (0.0 - 2.0 %) 0 L Absolute Granulocytes (1.4 - 6.5 /CUMM) 10.7 H Segmented Neutrophils (42.2 - 75.2 %) 88 H Band Neutrophils (0.0 - 5.0 %) 2 Absolute Lymphocytes (1.2 - 3.4 /CUMM) 0.6 L Lymphocytes (20.5 - 51.1 %) 4 L Monocytes (1.7 - 9.3 %) 3 Absolute Monocytes (0.10 - 0.60 /CUMM) 0.7 H Eosinophils (0 - 5.0 %) 3 Absolute Eosinophils (0.0 - 0.7 /CUMM) 0.3 Absolute Basophils (0.0 - 0.2 /CUMM) 0 Platelet Estimate (ADEQUATE) ADEQUATE Polychromasia 1+ Hypochromic-Microcytic 1+ Poikilocytosis 2+ Anisocytosis 1+ Microcytic Cells 1+ Ovalocytes 1+ Stomatocytes 1+ PUBS MCHC (33.0 - 37.0 G/DL) 32.0 L Other Body Source Fld Total RBCs Counted (%) 100 06/17 06/16 06/16 06/16 0119 1745 1745 1145 Chemistry Sodium (137 - 145 mmol/L) 130 L Potassium (3.5 - 5.1 mmol/L) 4.3 Chloride (98 - 107 mmol/L) 92 L Carbon Dioxide (22 - 30 mmol/L) 23 Anion Gap (5 - 16) 15 BUN (7 - 17 mg/dL) 45 H Creatinine (0.5 - 1.0 mg/dL) 1.1 H Estimated GFR (>60 ml/min) 53 L BUN/Creatinine Ratio (7 - 25 %) 40.9 H Lactic Acid (0.7 - 2.1 mmol/L) 1.1 1.4 Urines Urinalysis HEAVY H Urine Color (YEL,AMB,STR) MARTHA Urine Clarity (CLEAR) CLDY H Urine pH (5.0 - 8.0) 5.5 Ur Specific [place] (1.001 - 1.035) 1.025 Urine Protein (NEG,<30 MG/DL) 100 H Urine Ketones (NEG) 15 H Urine Nitrite (NEG) NEG Urine Bilirubin (NEG) POS@ICTO H Urine Urobilinogen (0.1 - 1.0 EU/dl) 1.0 Ur Leukocyte Esterase (NEG) MOD H Ur Microscopic SEDIMENT EXAMINED Urine RBC (0 - 5 /HPF) 1-3 Urine WBC (0 - 2 /HPF) 15-25 H Ur Epithelial Cells (NONE,FEW) MANY H Urine Mucus (FEW,NONE) FEW Urine Hemoglobin (NEG) LARGE H Urine Glucose (N MG/DL) 100 H 06/16 06/16 1145 1011 Chemistry Sodium (137 - 145 mmol/L) 130 L Potassium (3.5 - 5.1 mmol/L) 4.3 Chloride (98 - 107 mmol/L) 87 L Carbon Dioxide (22 - 30 mmol/L) 27 Anion Gap (5 - 16) 17 H BUN (7 - 17 mg/dL) 53 H Creatinine (0.5 - 1.0 mg/dL) 1.2 H Estimated GFR (>60 ml/min) 48 L BUN/Creatinine Ratio (7 - 25 %) 44.2 H Glucose (65 - 99 mg/dL) 103 H Calcium (8.4 - 10.2 mg/dL) 10.0 Total Bilirubin (0.2 - 1.3 mg/dL) 4.7 H AST (14 - 36 U/L) 72 H ALT (9 - 52 U/L) 37 Alkaline Phosphatase (<127 U/L) 267 H Troponin I (< 0.11 ng/ml) < 0.01 Total Protein (6.3 - 8.2 g/dL) 6.9 Albumin (3.5 - 5.0 g/dL) 2.9 L Globulin (1.9 - 4.2 gm/dL) 4.0 Albumin/Globulin Ratio (1.1 - 2.2 %) 0.7 L Hematology CBC w Diff NO MAN DIFF REQ WBC (4.8 - 10.8 /CUMM) 12.1 H RBC (4.20 - 5.40 /CUMM) 3.06 L Hgb (12.0 - 16.0 G/DL) 7.5 L Hct (37 - 47 %) 22.9 L MCV (81.0 - 99.0 FL) 75.0 L MCH (27.0 - 31.0 PG) 24.6 L RDW (11.5 - 14.5 %) 19.3 H Plt Count (130 - 400 /CUMM) 292 MPV (7.4 - 10.4 FL) 7.6 Gran % (42.2 - 75.2 %) 83.0 H Lymphocytes % (20.5 - 51.1 %) 6.9 L Monocytes % (1.7 - 9.3 %) 6.7 Eosinophils % (0 - 5 %) 2.4 Basophils % (0.0 - 2.0 %) 1.0 Absolute Granulocytes (1.4 - 6.5 /CUMM) 10.0 H Absolute Lymphocytes (1.2 - 3.4 /CUMM) 0.8 L Absolute Monocytes (0.10 - 0.60 /CUMM) 0.8 H Absolute Eosinophils (0.0 - 0.7 /CUMM) 0.3 Absolute Basophils (0.0 - 0.2 /CUMM) 0.1 PUBS MCHC (33.0 - 37.0 G/DL) 32.8 L Toxicology Acetone Level (NEGATIVE) NEGATIVE Cancelled Assessment/Plan Assessment/Recommendations: Ms. Hernández is a 50-year-old female with widely metastatic biposy proven esophageal adenocarcinoma, HER2 positive who presents from clinic to ED with uncontrolled pain and hypotension. Hypotension may be related to hypovolemia. Other potential is adrenal insufficiency to adrenal mass. Her hemoglobin is lower today along with elevated BUN. This is concerning for GI bleeding with history of tarry stool from the nurse. This may be related to esophageal mass. GI evaluation should be considered. If it is truly the mass bleeding and no GI intervention possible , radiation may be an option for palliation. She also has worsening LFT. Bilirubin is mostly direct. No ductal dilation noted on imaging (CT and US). This may be likely from underlying metastatic disease. Stent may not be useful in this setting. GI input may be useful. Plan was for chemotherapy with FOLFOX+trastuzumab. Her current performance status is poor at ECOG PS 3. Due to rapid disease progression, decondition, and potential bleeding, she is not a candidate for therapy at the moment. I briefly went over with her regarding palliation and code status. She has not made a decision as of yet. I also spoke with brother in law (Paxton Narayanan) regarding her current condition and decline. Pain is somewhat under control but with side effect of somnolence. This may also be related to liver disease. Palliative care consult may be appropriate in this setting. Recommendations: 1. Continue IV hydration 2. Transfuse with 2 unit pRBC 3. GI consultation 4. PPI 5. IF bleeding mass and no GI intervention, consider radiation oncology consultation 6. Hold enoxaparin dosing this morning (may need heparin drip bridge) given ? bleeding 7. Pain control: Oxycontin 60 mg Q8hr and oxycodone 15 mg Q4Hr prn, may need to decrease scheduled dosing 8. Can consider appetite stimulant such as marinol 9. Aggressive bowel regimen as last admission had significant constipation 10. If no improvement in deconditioning and LFT, therapy will be limited and may be candidate for hospice Please call [phone] with any questions or concerns. Problem List: 1. Internal jugular (IJ) vein thromboembolism, acute 2. Metastatic cancer 3. YURIDIA (acute kidney injury) 4. Liver function abnormality
--- NOTE | 2016-06-17 09:28 | PN- Housestaff ---
ANILMARIA ESTHERAlbert 06/17/16 0928: Subjective Follow-up For: Esophageal cancer with metastases Subjective: Examined patient continues to be in great pain not able to answer questions Review of Systems Constitutional: Reports: see HPI. Objective Last 24 Hrs of Vital Signs/I&O Vital Signs Date Time Temp Pulse Resp B/P Pulse O2 O2 Flow FiO2 Ox Delivery Rate 06/17 1455 Room Air 06/17 1357 98.2 100 18 120/60 92 Nasal 2.0L Cannula 06/17 0606 97.9 110 20 90/50 94 Room Air 06/17 0200 98/60 06/17 0000 95 Room Air 06/16 2311 97.9 111 18 88/50 95 Room Air 06/16 2208 98.0 108 18 90/58 94 Room Air Intake & Output 06/17 1600 06/17 0800 06/17 0000 Intake Total 950 1250 560 Output Total 100 Balance 950 1150 560 Intake, Blood 350 Product Intake, IV 600 1200 500 Intake, Oral 50 60 Number 2 Bowel Movements Output, Urine 100 Physical Exam General Appearance: Severe Distress Cardiovascular: Normal S1, Normal S2 Lungs: bilateral decreased breath sounds Abdomen: very tender to palpation, masses palpable Current Medications: Current Medications Sig/Beata Start time Last Medication Dose Route Stop Time Status Admin Albuterol Sulfate 3 ML Q4P PRN 06/17 0845 DC INH Albuterol Sulfate 2 PUF Q4-6 PRN PRN 06/17 0830 AC INH Enoxaparin Sodium 60 MG BID 06/16 2200 DC 06/16 SC 2209 Fentanyl Citrate 75 MCG Q72H 06/17 1445 AC 06/17 TOP 1504 Folic Acid 1 MG DAILY 06/16 1450 DC PO Glycopyrrolate 100 MCG Q4P PRN 06/17 1600 AC IV Glycopyrrolate 200 MCG ONE ONE 06/17 1430 DC 06/17 IV 06/17 1431 1503 Morphine Sulfate 2 MG Q4P PRN 06/17 1430 AC 06/17 IV 1512 Multivitamins 1 TAB DAILY 06/16 1450 DC 06/16 Therapeutic PO 1715 Oxycodone HCl 40 MG Q8H 06/17 1625 CAN PO Oxycodone HCl 60 MG Q8H 06/16 1625 DC 06/17 PO 0059 Oxycodone HCl 15 MG Q4P PRN 06/16 1500 DC 06/17 PO 0740 Patient Medication 1 ED ONE ONE 06/17 1345 DC Teaching ED 06/17 1346 Polyethylene Glycol 17 GM DAILY 06/17 1000 DC PO Scopolamine HBr 1 PAT ONE ONE 06/17 1430 [place] 06/17 [facility] 06/17 1431 1503 Senna/Docusate Sodium 2 TAB DAILY 06/16 1451 DC PO Sodium Chloride 500 ML BOLUS ONE 06/16 2345 DC 06/16 IV 06/17 0044 2348 Sodium Chloride 1,000 ML .[id number] 06/16 1445 DC 06/17 IV 0330 Last 24 Hrs of Lab/Al Results Last 24 Hrs of Labs/Mics: Laboratory Tests 06/17/16 0830: PT 23.9 H, INR 2.29 H, Fibrinogen Activity 462 H, Fibrin Degrad Products >10 but < 40 ug/ml H 06/17/16 0600: Anion Gap 18 H, Estimated GFR 48 L, BUN/Creatinine Ratio 36.7 H, Lactic Acid 1.0, Total Bilirubin 5.8 H, Direct Bilirubin 5.1 H, AST 85 H, ALT 37, Alkaline Phosphatase 301 H, Total Protein 6.2 L, Albumin 2.5 L, CBC w Diff MAN DIFF ORDERED, RBC 2.81 L, MCV 76.4 L, MCH 24.4 L, RDW 19.7 H, MPV 7.4, Gran % 87.1 H, Lymphocytes % 4.5 L, Monocytes % 5.6, Eosinophils % 2.8, Basophils % 0 L, Absolute Granulocytes 10.7 H, Segmented Neutrophils 88 H, Band Neutrophils 2, Absolute Lymphocytes 0.6 L, Lymphocytes 4 L, Monocytes 3, Absolute Monocytes 0.7 H, Eosinophils 3, Absolute Eosinophils 0.3, Absolute Basophils 0, Platelet Estimate ADEQUATE, Polychromasia 1+, Hypochromic- Microcytic 1+, Poikilocytosis 2+, Anisocytosis 1+, Microcytic Cells 1+, Ovalocytes 1+, Stomatocytes 1+, PUBS MCHC 32.0 L, Fld Total RBCs Counted 100 06/17/16 0119: Urinalysis HEAVY H, Urine Color MARTHA, Urine Clarity CLDY H, Urine pH 5.5, Ur Specific [place] 1.025, Urine Protein 100 H, Urine Ketones 15 H, Urine Nitrite NEG, Urine Bilirubin POS@ICTO H, Urine Urobilinogen 1.0, Ur Leukocyte Esterase MOD H, Ur Microscopic SEDIMENT EXAMINED, Urine RBC 1-3, Urine WBC 15-25 H, Ur Epithelial Cells MANY H, Urine Mucus FEW, Urine Hemoglobin LARGE H, Urine Glucose 100 H 06/16/16 1745: Lactic Acid 1.1 06/16/16 1745: Anion Gap 15, Estimated GFR 53 L, BUN/Creatinine Ratio 40.9 H Assessment/Plan Assessment: 50 year old woman former smoker, pmh of Asthma, ETOH dependency, 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 Blood pressure on admission 90/60s improved with 1 L of normal saline. Limited abdominal ultrasound shows new left lobe liver lesion, taken at him as gallbladder wall with thickened bile within gallbladder lumen and mild dilatation of the CBD with no choledocholithiasis will be admitted to genmed floor for decrease PO intake and pain management. CT abdomen shows worsening metastases, patient is uncomfortable and in pain at this time 1. Primary cancer of esophagus with metastasis to other site Goals of care addressed with family, CODE STATUS changed to DNR/DNI another family meeting for 6 PM today to make patient hospice started on scopolamine, glycopyrrolate and morphine 2 mg IV every 4 when necessary Problem List: 1. Esophageal cancer Pain Ratin Pain Location: diffuse Pain Goal: Pain 4 or less Pain Plan: Current regimen Tomorrow's Labs & Rationales: None required YESIKA FELDMAN MD 06/17/16 1446: Attending MD Review Statement Attending Statement Attending MD Statement: examined this patient, discuss w/resident/PA/MRI SPECIAL PROCEDURES TECHNOLOGIST, agreed w/resident/PA/MRI SPECIAL PROCEDURES TECHNOLOGIST, reviewed EMR data (avail) Attending Assessment/Plan: 50F PMH asthma, ETOH dependency, recently diagnosed poorly differentiated adenoma of esophagus with multiple metastases, B/L upper extremity DVT on lovenox presenting with generalized weakness, poor appetite, poor PO intake, and dehydration. Had been scheduled for first chemotherapy session today but was hypotensive in oncologist's office and sent to ED. Labs show anemia with Hgb 7.5, labs show dehydration, YURIDIA. Patient reports dysphagia and odynophagia. Also reports diffuse body pain worst in abdomen. Patient clinically worsening today. She is anuric and has generalized edema. She is in pain diffusely when awake, and no longer wishes to try to swallow. 1. Stage IV esophageal carcinoma 2. Failure to thrive 3. Left IJ and bilateral UE DVT 4. Debility Plan - Nutrition consult - Discontinue IV fluids - Palliative care consult - May restart Fentanyl patch as patient is no longer taking PO well - Discontinue Oxycontin, will give more frequent PRN doses and adjust accordingly - Morphine 4mg q2h PRN - Rubinol PRN - Start Scopolamine patch - Watch for sedation and respiratory depression - Continue PPI - Follow oncology recommendations - COntinue Lovenox - Further goals of care discussion today. Patient is a candidate for hospice and has a very poor prognosis
[2016-06-17 10:42] LABS: PT 23.9 SEC (9.4-12.5)
[2016-06-17 13:57] VITALS: BP 120/60
--- NOTE | 2016-06-17 15:34 | Event Note ---
Event Note Event Note: Spoke to see need a sister And for a family meeting today for discussion of goals of care this evening
--- NOTE | 2016-06-25 15:46 | Cons- Urology ---
General Information and HPI Consulting Request Date of Consult: 06/16/16 Requested By: YESIKA FELDMAN MD Reason for Consult: hydronephrosis Source of Information: patient Exam Limitations: no limitations History of Present Illness: Ms. Hernández is a 50-year-old female with hx of ETOH usage and metastatic esophageal carcinoma who presented to ED after being noted to have hypotension and uncontrolled pain in clinic. She has been in and out of the hospital for pain in the last month. She has a lot of pain in her abdomen and back. She is on a fentanyl patch with oxycodone. In the ED, she underwent blood work which demonstrated worsening anemia at 7.5, worsening renal function, and worsening LFT. Increasing peritoneal and subcutaneous masses in size and number. Hepatic and adrenal lesions have increased in size. Potentially new 4 mm pulmonary nodule of the right lung base. Ultrasound of the abdomen demonstrated several metastatic deposits are seen, including adjacent to the pancreatic body tail junction and left hepatic capsule , appearing more prominent than on prior exam. New left lobe of liver lesion is seen, suspicious for metastatic disease. Thickened and edematous gallbladder wall with thickened bile within the gallbladder lumen. Mild dilatation of the common bile duct. No definite choledocholithiasis appreciated. I was asked to see her for hydronephrosis from mets and discuss the therapy that is suitable for this i.e stent placement vs possible nephrostomy tube. Allergies/Medications Allergies: Coded Allergies: NO KNOWN ALLERGIES (06/07/16) Home Med List: Albuterol Sulfate (Proair Hfa) 90 MCG HFA.AER.AD 2 PUF INH Q4-6 PRN PRN ASTHMA (Reported) Enoxaparin Sodium (Lovenox) 60 MG/0.6 ML SYRINGE 0.6 ML SC BID anticoagulation. . Fentanyl Citrate (Duragesic) 50 MCG/HOUR PATCH.TD72 1 PAT TOP Q3D pain Ferrous Sulfate 325 MG (65 MG IRON) TABLET.DR 1 MG PO TID anemia Folic Acid 1 MG TABLET 1 MG PO DAILY anemia Multivitamin (One Daily Multivitamin) 1 EACH TABLET 1 TAB PO DAILY anemia Ondansetron (Zofran Odt) 4 MG TAB.RAPDIS 1 TAB SL TID PRN NAUSEA Oxycodone HCl (Oxycontin) 10 MG TAB.ER.12H 1 TAB PO BID SEVERE PAIN Oxycodone HCl 5 MG TABLET 3 TAB PO Q4P PRN severe pain Polyethylene Glycol 3350 (Miralax) 17 GRAM/DOSE POWDER 17 GM PO DAILY CONSTIPATION Sennosides/Docusate Sodium (Senna Plus Tablet) 8.6 MG-50 MG TABLET 2 TAB PO DAILY CONSTIPATION Thiamine HCl (Vitamin B-1) 100 MG TABLET 1 MG PO DAILY anemia Past History Medical History Blood Transfusion Hx: Yes Neurological: NONE EENT: NONE Cardiovascular: NONE Respiratory: asthma Gastrointestinal: pancreatitis Hepatic: NONE Renal: BLADDER INFECTIONS Musculoskeletal: NONE Psychiatric: NONE Endocrine: NONE Blood Disorders: DVT Cancer(s): POORLY DIFFERENTIATED ADENOCARCINOMA OF THE DISTAL ESOPHAGUS EQUIPMENT COORDINATOR/Reproductive: NONE Surgical History Pertinent Surgical History: none, non-contributory Family History Relations & Conditions If Any: MOTHER Myocardial infarction Psychosocial History Where Do You Live? Home Who Do You Live With? boyfriend Services at Home: None Primary Language: Bahraini Smoking Status: Former Smoker ETOH Use: occasional use Illicit Drug Use: denies illicit drug use Functional Ability ADLs Independent: dressing, eating, toileting, bathing. Ambulation: independent IADLs Independent: shopping, housework, finances, food prep, telephone, transportation , medication admin. Review of Systems Review of Systems Constitutional: Reports: see HPI. EENTM: Reports: no symptoms. Cardiovascular: Reports: no symptoms. Respiratory: Reports: no symptoms. GI: Reports: see HPI. Genitourinary: Reports: see HPI. Musculoskeletal: Reports: no symptoms. Skin: Reports: no symptoms. Neurological/Psychological: Reports: see HPI. Hematologic/Endocrine: Reports: no symptoms. Immunologic/Allergic: Reports: no symptoms. Exam & Diagnostic Data Vital Signs and I&O afebrile VSS Physical Exam: pt sitting up in bed watching TV NO respiratory distress. ABd soft, ND tender generally. No CVA tenderness. NO magallon in place. NO C/C/E. Physical Exam General Appearance: no apparent distress, alert, awake, anxious, comfortable Head: normal appearance Eyes: Bilateral: normal appearance. Respiratory: no respiratory distress Gastrointestinal: soft, tenderness Rectal: deferred Back: normal inspection Extremities: no edema Neurologic/Psych: awake, alert Cranial Nerves: normal hearing, normal speech Skin: intact, normal color, warm/dry Imaging Results: EXAMINATION: CT ABDOMEN AND PELVIS WITHOUT CONTRAST CLINICAL INFORMATION: Elevated LFTs. Biliary obstruction. Esophageal cancer. COMPARISON: Abdominal ultrasound same day, CTA of chest 06/02/[address] abdomen pelvis 05/08/2016 TECHNIQUE: Multidetector volumetric imaging was performed from the superior aspect of the liver through the pubic symphysis. Sagittal and coronal reformatted images were obtained on the technologist's workstation. Evaluation of solid organs is limited secondary to lack of intravenous contrast. DLP: 278 mGy-cm. FINDINGS: Visualized lung bases demonstrate a small left-sided pleural effusion. Interval development of 4 mm pulmonary nodule of the right lung base (image 10/87, series 2). Mild interval increase in size of left subcapsular hepatic mass, today measuring 1.3 cm (previously 8 mm). There is no gross intrahepatic biliary ductal dilatation. The gallbladder demonstrates increased attenuation, possibly related to vicarious excretion of contrast. Evaluation of the pancreas is limited secondary to lack of IV contrast and surrounding metastatic deposits. Right adrenal gland mass again appreciated. Mild interval increase in size of left adrenal gland mass. Evaluation of the kidneys is suboptimal. There is questionable left sided hydronephrosis without gross renal calculi. Diffuse circumferential thickening of the distal esophagus. Normal caliber loops of small and large bowel. Mild colonic diverticulosis without CT evidence to suggest active diverticulitis. Interval increase in size and number of subcutaneous and peritoneal metastatic deposits, for example a 2.8 cm metastatic deposit within the left upper abdomen previously measured 2.4 cm (image 31/87, series 2). Numerous subcutaneous metastatic deposits throughout the abdomen and breast are again identified and increased in size and number. Fullness adjacent to the aorta is suggestive of para-aortic lymphadenopathy. The bladder is partially distended and grossly unremarkable. No gross acute osseous abnormality.. IMPRESSION: Worsening metastatic disease throughout the chest, abdomen and pelvis. Peritoneal and subcutaneous masses have increased in size and number. Hepatic and adrenal lesions have increased in size. Likely new 4 mm pulmonary nodule of the right lung base. Mild interval increase in size of small left pleural effusion. Assessment/Plan Assessment/Plan Pt with met esophageal cancer with new onset left hydronephrosis among other progression of mets. She cont to have severe pain. Discussed with the patient of possible need to treat the swelling of the tube that connects kidney and bladder for drainage. Explained what this entails. Answered questions. Consult Acknowledgment - Thank you for your consult request.
--- NOTE | 2016-07-09 13:42 | Discharge Summary ---
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 In the ED, blood work which demonstrated worsening anemia at 7.5, worsening LFT and renal function. CT scan demonstrated increasing peritoneal and subcutaneous masses in size and number. Hepatic and adrenal lesions have also increased in size. Potentially new 4 mm pulmonary nodule of the right lung base was noted. Ultrasound of the abdomen demonstrated several metastatic deposits are seen, including adjacent to the pancreatic body tail junction and left hepatic capsule , appearing more prominent than on prior exam. She was admitted to the General medicine floor, given IV hydration and was transfused 1 unit of PRBC. Her H/H however continued to drop and she remained in severe pain despite increase in pain medication. Her Goals of care was addressed on day 2 of admission with family and decision was to consult palliative and she was transferred to hospice care. Complications: uncontrolled pain, aggressive metastatic progression. Allergies: Coded Allergies: NO KNOWN ALLERGIES (06/07/16) Disposition Summary Disposition Principal Diagnosis: Metastatic Adenocarcinoma of esophagu Additional Diagnosis: Asthma ETOH dependancy B/L upper extremity DVT Discharge Disposition: hospice - medical facilit Discharge Instructions General Discharge Information Code Status: Hospice Patient's Diet: as tolerated Patient's Activity: bedbound Follow-Up Instructions/Appts: none Copies To: KRISTIAN [place] MD, MD Review Statement Documenting Attending: YESIKA FELDMAN MD
--- NOTE | 2016-09-10 11:16 | Event Note ---
Event Note Event Note: We were alerted by nursing staff that patient was unresposive. Patient was seen and examined at bedside. She was unresponsive. Bilateral pupils were fixed and dilated. Heart sounds and pulse was absent. Patient was pronounced at 05:45 PM. Rest In Peace.
== END 2016-06-17 17:50 | disposition expired | DRG 240 ==
LOC: ENRESERVDT → ENRESERVTM → ERH 09:48 → 2NA 13:14 → ERHI 14:25 → 2NA 15:04
PROVIDERS: Emergency Medicine; Internal Medicine; Radiology Diagnostic Radiology; ADMIT Internal Medicine
DX: C15.5 Malignant neoplasm of lower third of esophagus (principal); C78.7 Secondary malignant neoplasm of liver and intrahepatic bile duct; C79.70 Secondary malignant neoplasm of unspecified adrenal gland; F10.20 Alcohol dependence, uncomplicated; E86.1 Hypovolemia; I95.9 Hypotension, unspecified; N17.9 Acute kidney failure, unspecified; R62.7 Adult failure to thrive; I82.C19 Acute embolism and thrombosis of unspecified internal jugular vein; Z87.891 Personal history of nicotine dependence
CPT/HCPCS: 2NAP; 36415; 74176; 81001; 82436; 86920; 93005; 93010; 94799; 96361; 96372; 96374; 96375; J1650; J3101; J3490; J7040; P9016